=== PATIENT | female | born 1935 | race Caucasian/White ===

== ENCOUNTER 2018-03-28 07:57 | Inpatient (IN) | payer MEDICARE, OTHER ==
[2018-03-28] MEDS ORDERED: Sodium Chloride 0.9% 1000 ML 1,000 ML IV STA ×2 (08:15→11:54)
[2018-03-28] MEDS ORDERED: Sodium Chloride 0.9% 1000 ML 1,000 ML ONE (08:15)
--- NOTE | 2018-03-28 08:24 | ERPHSYRPT ---
- History of Present Illness Time Seen by Provider: 03/28/18 08:09 Source: EMS, custodial records Exam Limitations: clinical condition, other (dementia) Physician History: Pt was transported from custodial, apparently she has become lethargic and hypotensive. Her blood pressure was 87/60 on the scene, after arrival, here is 120/80, she is afebrile, lethargic, aroused opens her eyes, but nonverbal. EMS and custodial did not report any trauma, injury, vomiting, or fever, her blood sugar was 233 in the ambulance. Timing/Duration: today Severity: severe Character of Deficits: other (generalized weakness, and lethargy) Deficits: unable to stand Baseline/Normal Cognition: alert but confused Current Cognition: poor alertness Associated Symptoms: denies symptoms Allergies/Adverse Reactions: No Known Drug Allergies Allergy (Verified 03/28/18 09:17) Home Medications: Triamterene/Hydrochlorothiazid [Triamterene-Hctz 37.5-25 mg Tb] 25 mg PO DAILY 01/23/14 [History] Calcium Carbonate/Vitamin D3 [Oystercal-D 500 mg-400 Unit Tb] 1 each PO DAILY [History] Cholecalciferol (Vitamin D3) [Vitamin D] 1,000 unit PO DAILY 03/28/18 [ History] Glipizide 5 mg [Glucotrol 5 MG] 5 mg PO DAILY 03/28/18 [History] Polyethylene Glycol 3350 [Glycolax] 527 gm PO DAILY 03/28/18 [History] Sennosides/Docusate Sodium [Stool Soft-Stimulant Lax Tab] 1 each PO BID [History] Hx Tetanus, Diphtheria Vaccination/Date Given: No Hx Influenza Vaccination/Date Given: Yes (2013) Hx Pneumococcal Vaccination/Date Given: No - Review of Systems All Other Systems: Unable due to condition, Unable due to dementia - Past Medical History Pertinent Past Medical History: Yes Cardiac History: High Cholesterol, Hypertension Endocrine Medical History: Diabetes Type II - Past Surgical History Past Surgical History: Yes Musculoskeletal: Orthopedic Surgery Female Surgical History: Hysterectomy, Lumpectomy - Social History Smoking Status: Never smoker Exposure to second hand smoke: No Drug Use: none - Nursing Vital Signs Nursing Vital Signs: Initial Vital Signs Temperature 98 F 03/28/18 08:01 Pulse Rate 104 H 03/28/18 08:01 Respiratory Rate 16 03/28/18 08:01 Blood Pressure 141/96 03/28/18 08:01 O2 Sat by Pulse Oximetry 100 03/28/18 08:01 Pain Scale Pain Intensity 0 - [place] Coma Scale Best Eye Response ([place]): (2) open to pain Best Verbal Response ([place]): (1) no verbal response Best Motor Response ([place]): (4) withdraws to pain [place] Total: 7 - Physical Exam General Appearance: no apparent distress Eye Exam: bilateral eye: PERRL Ears, Nose, Throat Exam: dry mucous membranes Neck Exam: normal inspection, supple, No carotid bruit, No JVD Respiratory: normal breath sounds, lungs clear, airway intact, No respiratory distress Cardiovascular: regular rate/rhythm, normal heart sounds, normal peripheral pulses, No murmur Gastrointestinal: soft, normal bowel sounds, No distention, No mass, No guarding , No ecchymosis, No rebound, No organomegaly Back Exam: normal inspection Extremity Exam: normal inspection, No pedal edema Peripheral Pulses: femoral (R): 2+, femoral (L): 2+, dorsalis-pedis (R): 1+, dorsalis-pedis (L): 1+ Mental Status: lethargy Skin Exam: normal color, dry SpO2 Interpretation: normal Oxygen Delivery: Nasal Cannula - Course Nursing assessment & vital signs reviewed: Yes EKG Interpreted by Me: RATE (85/min), Left [place] Deviation, NORMAL INTERVALS, Left Bundle Branch Block (LaFB), Right Bundle Branch Block, Non-specific ST Changes - Radiology Exams Chest X-ray Interpretation: Interpreted by me, Negative - CT Exams Head CT Interpretation: Negative, Tele-radiologist Report Ordered Tests: Active Orders 24 hr Category Date Time Status Molecular Biology Professor STAT Care 03/28/18 08:18 Active Catheter-[place] STAT Care 03/28/18 08:15 Active EKG-ER Only STAT Care 03/28/18 08:15 Active IV Insertion STAT Care 03/28/18 08:15 Active Oxygen-ED Only NASAL CANNULA 2 lpm Care 03/28/18 08:15 Active CHEST 1 VIEW (PORTABLE) Stat Exams 03/28/18 08:18 Taken HEAD WITHOUT CONTRAST [CT] Stat Exams 03/28/18 08:19 Taken ARTERIAL BLOOD GASES Urgent Lab 03/28/18 08:46 Completed BLOOD CULTURE Stat Lab 03/28/18 08:49 Received CBC W DIFF Stat Lab 03/28/18 08:15 Completed CK-Creatinine Phosphokinase Stat Lab 03/28/18 08:15 Completed CMP Stat Lab 03/28/18 08:15 Completed CULTURE,URINE Stat Lab 03/28/18 08:45 Received Lactic Acid Stat Lab 03/28/18 08:46 Results MAGNESIUM Stat Lab 03/28/18 08:15 Completed Manual Differential NC Stat Lab 03/28/18 08:15 Completed NT PRO BNP Stat Lab 03/28/18 08:15 Completed PROTIME WITH INR Stat Lab 03/28/18 08:49 Completed TROPONIN Q3H Lab 03/28/18 08:49 Completed TROPONIN Q3H Lab 03/28/18 11:30 Ordered TROPONIN Q3H Lab 03/28/18 14:30 Ordered TROPONIN Q3H Lab 03/28/18 17:30 Ordered TROPONIN Q3H Lab 03/28/18 20:30 Ordered UA W/ MICROSCOPIC Stat Lab 03/28/18 08:45 Completed Urine Triage Profile Stat Lab 03/28/18 08:45 Completed Medication Summary Generic Name Dose Route Start Last Admin Trade Name Freq PRN Reason Stop Dose Admin Sodium Chloride 1,000 mls @ 500 mls/hr 03/28/18 09:45 03/28/18 09:52 Sodium Chloride 0.9% 1000 Ml IV 04/27/18 09:44 500 mls/hr .Q2H SANJANA Administration Vancomycin HCl 1 gm in 250 mls @ 167 mls/hr 03/28/18 10:02 03/28/18 10:08 Vancomycin 1gm/ Ns 250ml IV 03/28/18 11:31 167 mls/hr STAT ONE Administration Discontinued Medications Generic Name Dose Route Start Last Admin Trade Name Freq PRN Reason Stop Dose Admin Sodium Chloride 1,000 mls @ 999 mls/hr 03/28/18 08:15 03/28/18 09:57 Sodium Chloride 0.9% 1000 Ml IV 03/28/18 09:15 Infused .Q1H1M STA Infusion Sodium Chloride Confirm 03/28/18 08:15 Sodium Chloride 0.9% 1000 Ml Administered 03/28/18 08:16 Dose 1,000 mls @ ud .ROUTE .STK-MED ONE Ceftriaxone Sodium/Dextrose 1 g in 50 mls @ 100 mls/hr 03/28/18 09:40 09:48 Rocephin 1 Gm-D5w 50 Ml Bag IV 03/28/18 10:09 100 mls/hr STAT STA 100 mls/hr Administration Ceftriaxone Sodium/Dextrose Confirm 03/28/18 09:45 Rocephin 1 Gm-D5w 50 Ml Bag Administered 03/28/18 09:46 Dose 1 g in 50 mls @ ud IV .STK-MED ONE Lab/Rad Data: Laboratory Result Diagrams 03/28/18 08:15 03/28/18 08:15 Laboratory Results 03/28/18 03/28/18 03/28/18 Range/Units 08:49 08:49 08:46 WBC (4.0-10.5) K/mm3 RBC (4.1-5.4) M/mm3 Hgb (12.0-16.0) gm/dl Hct (35-47) % MCV (78-100) fl MCH (26-32) pg MCHC (32-36) g/dl RDW (11.5-14.0) % Plt Count (150-450) K/mm3 MPV (6-9.5) fl Absolute Granulocytes (1.4-6.9) PT 11.5 (9.95-12.35) SECONDS INR 0.99 (0.8-3.0) Puncture Site RIGHT BRACHIAL pCO2 32 L (35-45) mmHg pO2 188 H* (75-100) mmHg Base Excess 0.5 (-2.0-2.0) O2 Saturation 94.9 (94-100) g/dF ABG pH 7.47 H (7.35-7.45) ABG HCO3 23.3 (22-28) ABG O2 Sat (Measured) 99.9 (95-100) % Nicho Test YES A-a Gradient 0 a/A Ratio 1.00 Hemoglobin 16.1 Carboxyhemoglobin 3.3 (0.0-6.9) % THgb Methemoglobin 1.6 H (1.4-1.5) % Temperature 37.0 C POC O2 Flow Rate 32 % Sodium (137-145) mmol/L Potassium 3.4 L (3.5-5.1) mmol/L Chloride (98-107) mmol/L Carbon Dioxide (22-30) mmol/L Anion Gap (5-15) MEQ/L BUN (7-17) mg/dL Creatinine (0.52-1.04) mg/dL Estimated GFR ML/MIN Glucose (74-106) mg/dL Lactic Acid (0.4-2.0) Calcium (8.4-10.2) mg/dL Magnesium (1.6-2.3) mg/dL Total Bilirubin (0.2-1.3) mg/dL AST (14-36) U/L ALT (0-35) U/L Alkaline Phosphatase (38-126) U/L Creatine Kinase (30-135) U/L Troponin I 0.068 H* (0.000-0.034) ng/mL NT-Pro-B Natriuret Pep (0-1800) pg/mL Serum Total Protein (6.3-8.2) g/dL Albumin (3.5-5.0) g/dL Ur Collection Type Urine Color (YELLOW) Urine Appearance (CLEAR) Urine pH (5-6) Ur Specific [place] (1.005-1.025) Urine Protein (Negative) Urine Ketones (NEGATIVE) Urine Blood (0-5) Carter/ul Urine Nitrite (NEGATIVE) Urine Bilirubin (NEGATIVE) Urine Urobilinogen (0-1) mg/dL Ur Leukocyte Esterase (NEGATIVE) Urine Microscopic RBC (0-2) /HPF Urine Microscopic WBC (0-5) /HPF Ur Epithelial Cells (FEW) /HPF Amorphous Crystals (NEGATIVE) /HPF Urine Bacteria (NEGATIVE) /HPF Urine Mucus (NEGATIVE) /HPF Urine Culture Reflexed (NO) Urine Glucose (NEGATIVE) mg/dL Urine Opiates Level (NEGATIVE) Ur Methadone (NEGATIVE) Urine Barbiturates (NEGATIVE) Ur Phencyclidine (PCP) (NEGATIVE) Urine Amphetamine (NEGATIVE) U Benzodiazepine Level (NEGATIVE) Urine Cocaine (NEGATIVE) Urine Marijuana (THC) (NEGATIVE) Specimen Received 03/28/18 03/28/18 03/28/18 Range/Units 08:46 08:45 08:45 WBC (4.0-10.5) K/mm3 RBC (4.1-5.4) M/mm3 Hgb (12.0-16.0) gm/dl Hct (35-47) % MCV (78-100) fl MCH (26-32) pg MCHC (32-36) g/dl RDW (11.5-14.0) % Plt Count (150-450) K/mm3 MPV (6-9.5) fl Absolute Granulocytes (1.4-6.9) PT (9.95-12.35) SECONDS INR (0.8-3.0) Puncture Site pCO2 (35-45) mmHg pO2 (75-100) mmHg Base Excess (-2.0-2.0) O2 Saturation (94-100) g/dF ABG pH (7.35-7.45) ABG HCO3 (22-28) ABG O2 Sat (Measured) (95-100) % Nicho Test A-a Gradient a/A Ratio Hemoglobin Carboxyhemoglobin (0.0-6.9) % THgb Methemoglobin (1.4-1.5) % Temperature C POC O2 Flow Rate % Sodium (137-145) mmol/L Potassium (3.5-5.1) mmol/L Chloride (98-107) mmol/L Carbon Dioxide (22-30) mmol/L Anion Gap (5-15) MEQ/L BUN (7-17) mg/dL Creatinine (0.52-1.04) mg/dL Estimated GFR ML/MIN Glucose (74-106) mg/dL Lactic Acid 3.4 H (0.4-2.0) Calcium (8.4-10.2) mg/dL Magnesium (1.6-2.3) mg/dL Total Bilirubin (0.2-1.3) mg/dL AST (14-36) U/L ALT (0-35) U/L Alkaline Phosphatase (38-126) U/L Creatine Kinase (30-135) U/L Troponin I (0.000-0.034) ng/mL NT-Pro-B Natriuret Pep (0-1800) pg/mL Serum Total Protein (6.3-8.2) g/dL Albumin (3.5-5.0) g/dL Ur Collection Type CATH Urine Color YELLOW (YELLOW) Urine Appearance CLOUDY (CLEAR) Urine pH 6.0 (5-6) Ur Specific [place] 1.010 (1.005-1.025) Urine Protein 30 (Negative) Urine Ketones NEGATIVE (NEGATIVE) Urine Blood NEGATIVE (0-5) Carter/ul Urine Nitrite POSITIVE (NEGATIVE) Urine Bilirubin NEGATIVE (NEGATIVE) Urine Urobilinogen NORMAL (0-1) mg/dL Ur Leukocyte Esterase TRACE (NEGATIVE) Urine Microscopic RBC 0-2 (0-2) /HPF Urine Microscopic WBC 2-5 (0-5) /HPF Ur Epithelial Cells MODERATE (FEW) /HPF Amorphous Crystals MANY (NEGATIVE) /HPF Urine Bacteria MANY (NEGATIVE) /HPF Urine Mucus SLIGHT (NEGATIVE) /HPF Urine Culture Reflexed YES (NO) Urine Glucose NEGATIVE (NEGATIVE) mg/dL Urine Opiates Level POSITIVE (NEGATIVE) Ur Methadone NEGATIVE (NEGATIVE) Urine Barbiturates NEGATIVE (NEGATIVE) Ur Phencyclidine (PCP) NEGATIVE (NEGATIVE) Urine Amphetamine NEGATIVE (NEGATIVE) U Benzodiazepine Level NEGATIVE (NEGATIVE) Urine Cocaine NEGATIVE (NEGATIVE) Urine Marijuana (THC) NEGATIVE (NEGATIVE) Specimen Received 03-28-18 0900 03/28/18 03/28/18 Range/Units 08:15 08:15 WBC 30.5 H* (4.0-10.5) K/mm3 RBC 5.86 H (4.1-5.4) M/mm3 Hgb 16.8 H (12.0-16.0) gm/dl Hct 48.4 H (35-47) % MCV 82.6 (78-100) fl MCH 28.6 (26-32) pg MCHC 34.7 (32-36) g/dl RDW 15.9 H (11.5-14.0) % Plt Count 216 (150-450) K/mm3 MPV 10.5 H (6-9.5) fl Absolute Granulocytes 28.72 H (1.4-6.9) PT (9.95-12.35) SECONDS INR (0.8-3.0) Puncture Site pCO2 (35-45) mmHg pO2 (75-100) mmHg Base Excess (-2.0-2.0) O2 Saturation (94-100) g/dF ABG pH (7.35-7.45) ABG HCO3 (22-28) ABG O2 Sat (Measured) (95-100) % Nicho Test A-a Gradient a/A Ratio Hemoglobin Carboxyhemoglobin (0.0-6.9) % THgb Methemoglobin (1.4-1.5) % Temperature C POC O2 Flow Rate % Sodium 130 L (137-145) mmol/L Potassium 3.8 (3.5-5.1) mmol/L Chloride 90 L (98-107) mmol/L Carbon Dioxide 25 (22-30) mmol/L Anion Gap 18.7 H (5-15) MEQ/L BUN 68 H (7-17) mg/dL Creatinine 3.64 H (0.52-1.04) mg/dL Estimated GFR 12.6 ML/MIN Glucose 267 H (74-106) mg/dL Lactic Acid (0.4-2.0) Calcium 17.3 H* (8.4-10.2) mg/dL Magnesium 2.6 H (1.6-2.3) mg/dL Total Bilirubin 0.70 (0.2-1.3) mg/dL AST 23 (14-36) U/L ALT 22 (0-35) U/L Alkaline Phosphatase 86 (38-126) U/L Creatine Kinase 32 (30-135) U/L Troponin I (0.000-0.034) ng/mL NT-Pro-B Natriuret Pep 3230 H (0-1800) pg/mL Serum Total Protein 7.4 (6.3-8.2) g/dL Albumin 4.3 (3.5-5.0) g/dL Ur Collection Type Urine Color (YELLOW) Urine Appearance (CLEAR) Urine pH (5-6) Ur Specific [place] (1.005-1.025) Urine Protein (Negative) Urine Ketones (NEGATIVE) Urine Blood (0-5) Carter/ul Urine Nitrite (NEGATIVE) Urine Bilirubin (NEGATIVE) Urine Urobilinogen (0-1) mg/dL Ur Leukocyte Esterase (NEGATIVE) Urine Microscopic RBC (0-2) /HPF Urine Microscopic WBC (0-5) /HPF Ur Epithelial Cells (FEW) /HPF Amorphous Crystals (NEGATIVE) /HPF Urine Bacteria (NEGATIVE) /HPF Urine Mucus (NEGATIVE) /HPF Urine Culture Reflexed (NO) Urine Glucose (NEGATIVE) mg/dL Urine Opiates Level (NEGATIVE) Ur Methadone (NEGATIVE) Urine Barbiturates (NEGATIVE) Ur Phencyclidine (PCP) (NEGATIVE) Urine Amphetamine (NEGATIVE) U Benzodiazepine Level (NEGATIVE) Urine Cocaine (NEGATIVE) Urine Marijuana (THC) (NEGATIVE) Specimen Received - Progress Progress: improved Progress Note: 03/28/18 10:05 Pt is more alert after 1000 ml saline, BP slightly elevated : 170/100, she opens her eyes to verbal stimuli, denies pain, O2 sat: 99 % on R/A, stable, she was started on iv Rocephine and Vancomycin, and 90 mg Pamidronate iv. I called Dr Freeman, discussed her results and current condition, he agreed to admit her to ICU. 03/28/18 10:09 Discussed with .: Alverto Will see patient in: hospital (full admit) - Departure Time of Disposition: 10:09 Departure Disposition: In-patient Admission Clinical Impression: Dehydration, Elevated troponin I level, Hypercalcemia UTI (urinary tract infection) Qualifiers: Urinary tract infection type: site unspecified Hematuria presence: without hematuria Qualified Code(s): N39.0 - Urinary tract infection, site not specified Altered mental status Qualifiers: Altered mental status type: unspecified Qualified Code(s): R41.82 - Altered mental status, unspecified Condition: Fair Critical Care Time: Yes Critical Care Time(excluding separately billable procedures): 30-74 minutes Referrals: RACHELLE BETHEA [Primary Care Provider] -
[2018-03-28 08:47] LABS: Lactic Acid 3.4 (0.4-2.0)
[2018-03-28 08:48] LABS: A-aADO2 0; ABG HEMOGLOBIN 16.1; ABG POTASSIUM 3.4 (3.5-5.1); ARTERIAL BLD GAS O2 SATURATION 99.9 % (95-100); ARTERIAL BLOOD GAS BASE EXCESS 0.5 (-2.0-2.0); ARTERIAL BLOOD GAS FIO2 32 %; ARTERIAL BLOOD GAS PCO2 32 mmHg (35-45); ARTERIAL BLOOD GAS PO2 188 mmHg (75-100); ARTERIAL BLOOD GAS pH 7.47 (7.35-7.45); CARBOXYHEMOGLOBIN 3.3 % THgb (0.0-6.9); HCO3- 23.3 (22-28); HGB O2 SAT 94.9 g/dF (94-100); Methhemoglobin 1.6 % (1.4-1.5)
[2018-03-28 08:49] LABS: ABG SITE RIGHT BRACHIAL; ALLEN TEST OK? YES
[2018-03-28 08:58] LABS: Granulocyte Absolute (ANC) 28.72 (1.4-6.9); Hematocrit 48.4 % (35-47); Hemoglobin 16.8 gm/dl (12.0-16.0); Mean Cell Volume 82.6 fl (78-100); Mean Corpuscular Hgb Concent. 34.7 g/dl (32-36); Mean Platelet Volume 10.5 fl (6-9.5); Platelet Count 216 K/mm3 (150-450); Red Blood Count 5.86 M/mm3 (4.1-5.4); Red Cell Distribution Width 15.9 % (11.5-14.0)
[2018-03-28 09:13] LABS: INR 0.99 (0.8-3.0)
[2018-03-28 09:15] LABS: Amphetamine,Urine NEGATIVE (NEGATIVE); Barbiturate,Urine NEGATIVE (NEGATIVE); Benzodiazepine,Urine NEGATIVE (NEGATIVE); Cocaine,Urine NEGATIVE (NEGATIVE); Methadone,Urine NEGATIVE (NEGATIVE); Opiate,Urine POSITIVE (NEGATIVE); PCP,Urine NEGATIVE (NEGATIVE); THC,Urine NEGATIVE (NEGATIVE)
[2018-03-28 09:16] LABS: Appearance CLOUDY (CLEAR); Bilirubin NEGATIVE (NEGATIVE); Blood NEGATIVE Ery/ul (0-5); Glucose NEGATIVE (NEGATIVE); Ketones NEGATIVE (NEGATIVE); Leukocyte Esterase TRACE (NEGATIVE); Nitrite POSITIVE (NEGATIVE); Protein,Urine Dip 30 (Negative); Urobilinogen NORMAL mg/dL (0-1)
[2018-03-28 09:17] LABS: ALBUMIN 4.3 g/dL (3.5-5.0); ANION GAP 18.7 MEQ/L (5-15); BILIRUBIN,TOTAL 0.7 mg/dL (0.2-1.3); Creatinine 1 3.64 mg/dL (0.52-1.04); Potassium 3.8 mmol/L (3.5-5.1); Total Protein 7.4 g/dL (6.3-8.2)
[2018-03-28 09:18] LABS: Bacteria MANY /HPF (NEGATIVE); Epithelial Cells MODERATE /HPF (FEW); Mucus SLIGHT /HPF (NEGATIVE); RBC 0-2 /HPF (0-2)
[2018-03-28 09:19] LABS: Amourphous Crystal MANY /HPF (NEGATIVE)
[2018-03-28 09:23] LABS: Mean Corpuscular Hemoglobin 28.6 pg (26-32); White Blood Count 30.5 K/mm3 (4.0-10.5)
[2018-03-28 09:29] LABS: Calcium 17.3 mg/dL (8.4-10.2)
[2018-03-28] MEDS ORDERED: ROCEPHIN 1 Gm-D5w 50 ml Bag** 1 G/50 ML IVPB IV STA (09:40)
[2018-03-28] MEDS ORDERED: ROCEPHIN 1 Gm-D5w 50 ml Bag** 1 G/50 ML IVPB IV ONE (09:45)
[2018-03-28] MEDS: Sodium Chloride 0.9% 1000 ML 1,000 ML IV SCH ×4 (09:52→19:39)
[2018-03-28] MEDS ORDERED: Vancomycin 1GM/ Ns 250ML*** 1 GM/250 ML IVPB IV ONE (10:02)
[2018-03-28] MEDS ORDERED: Vancomycin 1GM/ Ns 250ML*** 250 ML IV ONE (10:06)
[2018-03-28] MEDS ORDERED: AREDIA IV ONE (10:07)
[2018-03-28] MEDS ORDERED: MIACALCIN SQ ONE (10:30)
[2018-03-28 11:12] LABS: Lymphocytes 3 % (24-44); Neutrophils 97 % (36.0-66.0); Total Cells Counted 100
[2018-03-28 11:13] LABS: ANISOCYTOSIS 1+; Platelet Estimate NORMAL (NORMAL); Poikilocytosis 1+; Polychromasia 1+
[2018-03-28 11:44] LABS: Lactic Acid 3.5 (0.4-2.0)
[2018-03-28] MEDS ORDERED: APRESOLINE 20 MG/ML INJ IV PRN (11:57)
--- NOTE | 2018-03-28 12:06 | PCM.HP ---
History of Present Illness - Chief Complaint Chief Complaint: UTI Date: 03/28/18 History of Present Illness: is a 82 year old female. who has been recovering at [facility] in rehab she suffers from recent hip fracture a few months ago that was repaired but her recovery was limited by her chronic worsening dementia with history of previous stroke. She also suffers from renal failure. Her son noted that last weekend she began complaining of more nonspecific pain all over and then yesterday was yelling out in pain and would improve if someone sat with her labs were ordered and drawn at [facility] this am but on shift change she was tachycardic with low bp and difficult to arouse and thus she was sent to the ED. She is now more arousable but not communicating well she does follow commands and moves all extremities. takes calcium and vitamin D and triamterene / hctz at [facility] - Review of Systems Constitutional: Other (unable to obtain secondary to mental status) Medications & Allergies Home Medications: Home Medication List Triamterene/Hydrochlorothiazid [Triamterene-Hctz 37.5-25 mg Tb] 1 tab PO DAILY 01/23/14 [History Confirmed 03/28/18] Acetaminophen 325 mg [Tylenol 325 mg] 2 tab PO Q4H PRN 03/28/18 [History Confirmed 03/28/18] Calcium Carbonate/Vitamin D3 [Oystercal-D 500 mg-400 Unit Tb] 2 tab PO DAILY [History Confirmed 03/28/18] Cholecalciferol (Vitamin D3) [Vitamin D] 1,000 unit PO DAILY 03/28/18 [ History Confirmed 03/28/18] Glipizide 5 mg [Glucotrol 5 MG] 5 mg PO DAILY 03/28/18 [History Confirmed 03/28/18] Glucagon,Human Recombinant [Glucagon Emergency Kit] 1 mg IM QID PRN 03/28/18 [ History Confirmed 03/28/18] Hydrocodone Bit/Acetaminophen [[place] 5-325 Tablet] 1 each PO Q6HPRN PRN [History Confirmed 03/28/18] Magnesium Hydroxide [Milk of Magnesia] 30 ml PO DAILY PRN 03/28/18 [History Confirmed 03/28/18] Polyethylene Glycol 3350 [Glycolax] 17 gm PO DAILY 03/28/18 [History Confirmed 03/28/18] Polyvinyl Alcohol [Akwa Tears] 15 ml OP Q4H PRN 03/28/18 [History Confirmed ] Sennosides/Docusate Sodium [Stool Soft-Stimulant Lax Tab] 1 each PO BID PRN [History Confirmed 03/28/18] Allergies/Adverse Reactions: Allergies Allergy/AdvReac Type Severity Reaction Status Date / Time No Known Drug Allergies Allergy Verified 03/28/18 09:17 - Past Medical History Past Medical History: Yes Neurological History: Stroke Cardiac History: High Cholesterol, Hypertension Endocrine Medical History: Diabetes Type II History: Renal Disease - Female History Are you now?: No - Past Surgical History Past Surgical History: Yes Musculskeletal Surgical Hx: Orthopedic Surgery Female Surgical History: Hysterectomy, Lumpectomy - Social History Smoking Status: Never smoker Exposure to second hand smoke: No Alcohol: None Drug Use: none - Physical Exam Vital Signs: Vital Signs - 24 hr Temp Pulse Resp BP Pulse Ox 03/28/18 11:30 98 F 91 H 16 190/99 98 03/28/18 10:38 85 18 185/105 100 03/28/18 09:53 98 F 90 14 178/96 99 03/28/18 09:52 89 18 178/98 99 03/28/18 08:51 99.0 F 86 14 141/94 99 03/28/18 08:01 98 F 104 H 16 141/96 100 Oxygen-Last 24 hours O2 Percentage 2 Liters = 28% O2 Percentage 2 Liters = 28% O2 Percentage 2 Liters = 28% O2 Percentage 2 Liters = 28% O2 Percentage 2 Liters = 28% General Appearance: alert, thin, No anxiety Neurologic Exam: other (follows commands moves all extremities has dry oral mucosa tries to verbally answer questions but speech seems to be difficut no obvious focal neurological deficits), No oriented x 3 Eye Exam: PERRL/EOMI, No scleral icterus, No pale conjunctivae Ears, Nose, Throat Exam: dry mucous membranes Neck Exam: normal inspection, non-tender, supple Respiratory Exam: normal breath sounds, lungs clear Cardiovascular Exam: regular rate/rhythm, normal heart sounds Gastrointestinal/Abdomen Exam: soft, tenderness, other (tenderness in the right lower quadrant), No normal bowel sounds, No distention, No guarding, No ecchymosis, No rebound Extremity Exam: No deformities, No pedal edema, No swelling Skin Exam: warm, dry, other (with poor turgor) Results - Labs Lab/Micro Results: Accuchecks Accucheck Value: 242 Lab Results-Last 24 Hours 03/28/18 03/28/18 03/28/18 Range/Units 08:15 08:15 08:45 WBC 30.5 H* (4.0-10.5) K/mm3 RBC 5.86 H (4.1-5.4) M/mm3 Hgb 16.8 H (12.0-16.0) gm/dl Hct 48.4 H (35-47) % MCV 82.6 (78-100) fl MCH 28.6 (26-32) pg MCHC 34.7 (32-36) g/dl RDW 15.9 H (11.5-14.0) % Plt Count 216 (150-450) K/mm3 MPV 10.5 H (6-9.5) fl Absolute Granulocytes 28.72 H (1.4-6.9) Segmented Neutrophils 97 H (36.0-66.0) % Lymphocytes (Manual) 3 L (24-44) % Platelet Estimate NORMAL (NORMAL) RBC Morphology ABNORMAL Polychromasia 1+ Poikilocytosis 1+ Anisocytosis 1+ PT (9.95-12.35) SECONDS INR (0.8-3.0) Puncture Site pCO2 (35-45) mmHg pO2 (75-100) mmHg Base Excess (-2.0-2.0) O2 Saturation (94-100) g/dF ABG pH (7.35-7.45) ABG HCO3 (22-28) ABG O2 Sat (Measured) (95-100) % Nicho Test A-a Gradient a/A Ratio Hemoglobin Carboxyhemoglobin (0.0-6.9) % THgb Methemoglobin (1.4-1.5) % Temperature C POC O2 Flow Rate % Sodium 130 L (137-145) mmol/L Potassium 3.8 (3.5-5.1) mmol/L Chloride 90 L (98-107) mmol/L Carbon Dioxide 25 (22-30) mmol/L Anion Gap 18.7 H (5-15) MEQ/L BUN 68 H (7-17) mg/dL Creatinine 3.64 H (0.52-1.04) mg/dL Estimated GFR 12.6 ML/MIN Glucose 267 H (74-106) mg/dL Lactic Acid (0.4-2.0) Calcium 17.3 H* (8.4-10.2) mg/dL Phosphorus (2.5-4.5) mg/dL Magnesium 2.6 H (1.6-2.3) mg/dL Total Bilirubin 0.70 (0.2-1.3) mg/dL AST 23 (14-36) U/L ALT 22 (0-35) U/L Alkaline Phosphatase 86 (38-126) U/L Creatine Kinase 32 (30-135) U/L Troponin I (0.000-0.034) ng/mL NT-Pro-B Natriuret Pep 3230 H (0-1800) pg/mL Serum Total Protein 7.4 (6.3-8.2) g/dL Albumin 4.3 (3.5-5.0) g/dL Ur Collection Type CATH Urine Color YELLOW (YELLOW) Urine Appearance CLOUDY (CLEAR) Urine pH 6.0 (5-6) Ur Specific [place] 1.010 (1.005-1.025) Urine Protein 30 (Negative) Urine Ketones NEGATIVE (NEGATIVE) Urine Blood NEGATIVE (0-5) Carter/ul Urine Nitrite POSITIVE (NEGATIVE) Urine Bilirubin NEGATIVE (NEGATIVE) Urine Urobilinogen NORMAL (0-1) mg/dL Ur Leukocyte Esterase TRACE (NEGATIVE) Urine Microscopic RBC 0-2 (0-2) /HPF Urine Microscopic WBC 2-5 (0-5) /HPF Ur Epithelial Cells MODERATE (FEW) /HPF Amorphous Crystals MANY (NEGATIVE) /HPF Urine Bacteria MANY (NEGATIVE) /HPF Urine Mucus SLIGHT (NEGATIVE) /HPF Urine Culture Reflexed YES (NO) Urine Glucose NEGATIVE (NEGATIVE) mg/dL Urine Opiates Level (NEGATIVE) Ur Methadone (NEGATIVE) Urine Barbiturates (NEGATIVE) Ur Phencyclidine (PCP) (NEGATIVE) Urine Amphetamine (NEGATIVE) U Benzodiazepine Level (NEGATIVE) Urine Cocaine (NEGATIVE) Urine Marijuana (THC) (NEGATIVE) Specimen Received 03-28-18 0900 03/28/18 03/28/18 03/28/18 Range/Units 08:45 08:45 08:46 WBC (4.0-10.5) K/mm3 RBC (4.1-5.4) M/mm3 Hgb (12.0-16.0) gm/dl Hct (35-47) % MCV (78-100) fl MCH (26-32) pg MCHC (32-36) g/dl RDW (11.5-14.0) % Plt Count (150-450) K/mm3 MPV (6-9.5) fl Absolute Granulocytes (1.4-6.9) Segmented Neutrophils (36.0-66.0) % Lymphocytes (Manual) (24-44) % Platelet Estimate (NORMAL) RBC Morphology Polychromasia Poikilocytosis Anisocytosis PT (9.95-12.35) SECONDS INR (0.8-3.0) Puncture Site pCO2 (35-45) mmHg pO2 (75-100) mmHg Base Excess (-2.0-2.0) O2 Saturation (94-100) g/dF ABG pH (7.35-7.45) ABG HCO3 (22-28) ABG O2 Sat (Measured) (95-100) % Nicho Test A-a Gradient a/A Ratio Hemoglobin Carboxyhemoglobin (0.0-6.9) % THgb Methemoglobin (1.4-1.5) % Temperature C POC O2 Flow Rate % Sodium (137-145) mmol/L Potassium (3.5-5.1) mmol/L Chloride (98-107) mmol/L Carbon Dioxide (22-30) mmol/L Anion Gap (5-15) MEQ/L BUN (7-17) mg/dL Creatinine (0.52-1.04) mg/dL Estimated GFR ML/MIN Glucose (74-106) mg/dL Lactic Acid 3.4 H (0.4-2.0) Calcium (8.4-10.2) mg/dL Phosphorus 4.4 (2.5-4.5) mg/dL Magnesium (1.6-2.3) mg/dL Total Bilirubin (0.2-1.3) mg/dL AST (14-36) U/L ALT (0-35) U/L Alkaline Phosphatase (38-126) U/L Creatine Kinase (30-135) U/L Troponin I (0.000-0.034) ng/mL NT-Pro-B Natriuret Pep (0-1800) pg/mL Serum Total Protein (6.3-8.2) g/dL Albumin (3.5-5.0) g/dL Ur Collection Type Urine Color (YELLOW) Urine Appearance (CLEAR) Urine pH (5-6) Ur Specific [place] (1.005-1.025) Urine Protein (Negative) Urine Ketones (NEGATIVE) Urine Blood (0-5) Carter/ul Urine Nitrite (NEGATIVE) Urine Bilirubin (NEGATIVE) Urine Urobilinogen (0-1) mg/dL Ur Leukocyte Esterase (NEGATIVE) Urine Microscopic RBC (0-2) /HPF Urine Microscopic WBC (0-5) /HPF Ur Epithelial Cells (FEW) /HPF Amorphous Crystals (NEGATIVE) /HPF Urine Bacteria (NEGATIVE) /HPF Urine Mucus (NEGATIVE) /HPF Urine Culture Reflexed (NO) Urine Glucose (NEGATIVE) mg/dL Urine Opiates Level POSITIVE (NEGATIVE) Ur Methadone NEGATIVE (NEGATIVE) Urine Barbiturates NEGATIVE (NEGATIVE) Ur Phencyclidine (PCP) NEGATIVE (NEGATIVE) Urine Amphetamine NEGATIVE (NEGATIVE) U Benzodiazepine Level NEGATIVE (NEGATIVE) Urine Cocaine NEGATIVE (NEGATIVE) Urine Marijuana (THC) NEGATIVE (NEGATIVE) Specimen Received 03/28/18 03/28/18 03/28/18 Range/Units 08:46 08:49 08:49 WBC (4.0-10.5) K/mm3 RBC (4.1-5.4) M/mm3 Hgb (12.0-16.0) gm/dl Hct (35-47) % MCV (78-100) fl MCH (26-32) pg MCHC (32-36) g/dl RDW (11.5-14.0) % Plt Count (150-450) K/mm3 MPV (6-9.5) fl Absolute Granulocytes (1.4-6.9) Segmented Neutrophils (36.0-66.0) % Lymphocytes (Manual) (24-44) % Platelet Estimate (NORMAL) RBC Morphology Polychromasia Poikilocytosis Anisocytosis PT 11.5 (9.95-12.35) SECONDS INR 0.99 (0.8-3.0) Puncture Site RIGHT BRACHIAL pCO2 32 L (35-45) mmHg pO2 188 H* (75-100) mmHg Base Excess 0.5 (-2.0-2.0) O2 Saturation 94.9 (94-100) g/dF ABG pH 7.47 H (7.35-7.45) ABG HCO3 23.3 (22-28) ABG O2 Sat (Measured) 99.9 (95-100) % Nicho Test YES A-a Gradient 0 a/A Ratio 1.00 Hemoglobin 16.1 Carboxyhemoglobin 3.3 (0.0-6.9) % THgb Methemoglobin 1.6 H (1.4-1.5) % Temperature 37.0 C POC O2 Flow Rate 32 % Sodium (137-145) mmol/L Potassium 3.4 L (3.5-5.1) mmol/L Chloride (98-107) mmol/L Carbon Dioxide (22-30) mmol/L Anion Gap (5-15) MEQ/L BUN (7-17) mg/dL Creatinine (0.52-1.04) mg/dL Estimated GFR ML/MIN Glucose (74-106) mg/dL Lactic Acid (0.4-2.0) Calcium (8.4-10.2) mg/dL Phosphorus (2.5-4.5) mg/dL Magnesium (1.6-2.3) mg/dL Total Bilirubin (0.2-1.3) mg/dL AST (14-36) U/L ALT (0-35) U/L Alkaline Phosphatase (38-126) U/L Creatine Kinase (30-135) U/L Troponin I 0.068 H* (0.000-0.034) ng/mL NT-Pro-B Natriuret Pep (0-1800) pg/mL Serum Total Protein (6.3-8.2) g/dL Albumin (3.5-5.0) g/dL Ur Collection Type Urine Color (YELLOW) Urine Appearance (CLEAR) Urine pH (5-6) Ur Specific [place] (1.005-1.025) Urine Protein (Negative) Urine Ketones (NEGATIVE) Urine Blood (0-5) Carter/ul Urine Nitrite (NEGATIVE) Urine Bilirubin (NEGATIVE) Urine Urobilinogen (0-1) mg/dL Ur Leukocyte Esterase (NEGATIVE) Urine Microscopic RBC (0-2) /HPF Urine Microscopic WBC (0-5) /HPF Ur Epithelial Cells (FEW) /HPF Amorphous Crystals (NEGATIVE) /HPF Urine Bacteria (NEGATIVE) /HPF Urine Mucus (NEGATIVE) /HPF Urine Culture Reflexed (NO) Urine Glucose (NEGATIVE) mg/dL Urine Opiates Level (NEGATIVE) Ur Methadone (NEGATIVE) Urine Barbiturates (NEGATIVE) Ur Phencyclidine (PCP) (NEGATIVE) Urine Amphetamine (NEGATIVE) U Benzodiazepine Level (NEGATIVE) Urine Cocaine (NEGATIVE) Urine Marijuana (THC) (NEGATIVE) Specimen Received Accuchecks Accucheck Value: 242 - Radiology Impressions Radiology Exams & Impressions: Radiology Procedures Category Date Time Status CHEST 1 VIEW (PORTABLE) Stat Exams 03/28/18 08:18 Taken HEAD WITHOUT CONTRAST [CT] Stat Exams 03/28/18 08:19 Taken - Other Procedures and Tests Respiratory Therapy 03/28/18 10:13 Oxygen NASAL CANNULA 2 lpm Assessment/Plan (1) Sepsis Current Visit: Yes Status: Acute Assessment & Plan: severe with UTI but given severity and only the mild findings on urine there is concern for occults source she has tiny noninfected wound on coccyx but is having abdominal pain with palpation will check CT abd/pelvis now for possible occult etiology to source cover empiric for health care acquired infection currently with [facility] to dose and zosyn renal adjusted for her creat clearance of about 10 at 2.25 q8h she has severe dehydration she does take triamteren/hctz which will be held she also takes calcium and vitamin d which are also stopped she has received calcitonin as well as normal saline rehydration and is improvign now cognitively. will repeat bmp this afternoon with next lactic acid after additional fluid bolus of normal saline repeat calcitonin tonight as well check pth, pthrp, vitamin d and 1,25 oh vitamin d on initial testing there is no elevated protein at this time and the alkaline phosphatase is normal hopefully this hypercalcemia is just due to severe dehydration with excess calcium and vitamin D intake She has normal CK and minimally elevated troponin given her htn and degree of renal failure will observe and trend this, but she does not appear to be having acute OR at this point rather a troponin leak and renal failure more likely. Did discuss her current status with her son and POA who is in [place] and he confirms her desire to be full code at this point. He is on his way to see her currently and we will further discuss as more results return. (2) Acute metabolic encephalopathy Current Visit: Yes Status: Acute Code(s): G93.41 - METABOLIC ENCEPHALOPATHY (3) [id number] kidney injury Current Visit: Yes Status: Acute Code(s): N17.9 - ACUTE KIDNEY FAILURE, UNSPECIFIED; N18.9 - CHRONIC KIDNEY DISEASE, UNSPECIFIED (4) Hypercalcemia Current Visit: Yes Status: Acute Code(s): E83.52 - HYPERCALCEMIA (5) UTI (urinary tract infection) Current Visit: Yes Status: Acute Qualifiers: Urinary tract infection type: site unspecified Hematuria presence: without hematuria Qualified Code(s): N39.0 - Urinary tract infection, site not specified Code(s): N39.0 - URINARY TRACT INFECTION, SITE NOT SPECIFIED (6) Essential hypertension Current Visit: Yes Status: Chronic Code(s): I10 - ESSENTIAL (PRIMARY) HYPERTENSION
[2018-03-28] MEDS ORDERED: PHARMACY DOSING REQUIRED: VANCOMYCIN IV ONE (12:12)
[2018-03-28] MEDS ORDERED: Zosyn 2.25 GM IV ONE (12:47)
[2018-03-28] MEDS: Zosyn 2.25 GM 2.25 GM in D5w 100ML Mini Bag 100 ML 100 ML IV SCH ×2 (12:52→21:23)
[2018-03-28] MEDS ORDERED: Senokot-S Tablet PO PRN (14:07)
[2018-03-28] MEDS ORDERED: NORCO 5/325 MG PO PRN (14:07)
[2018-03-28] MEDS ORDERED: TYLENOL 325 MG PO PRN (14:07)
[2018-03-28] MEDS ORDERED: Artificial Tears 15 ML OP PRN (14:07)
[2018-03-28] MEDS: Miralax Powder 17GM PACKET PO SCH (14:47)
[2018-03-28] MEDS: ENOXAPARIN SODIUM SQ SCH (14:56)
[2018-03-28 15:14] LABS: Lactic Acid 3.3 (0.4-2.0)
[2018-03-28 15:19] LABS: ANION GAP 16.7 MEQ/L (5-15); Creatinine 1 2.88 mg/dL (0.52-1.04); Potassium 3.7 mmol/L (3.5-5.1)
[2018-03-28 15:35] LABS: Calcium 13.6 mg/dL (8.4-10.2)
[2018-03-28] MEDS: NovoLOG Insulin SQ PRN ×2 (15:45→21:42)
[2018-03-28 20:58] LABS: Lactic Acid 2.3 (0.4-2.0)
--- NOTE | 2018-03-28 21:18 | XRAY ---
Indication: Altered mental status. Comparison: None Portable chest underinflated with minimal bilateral subsegmental atelectasis/scarring. No focal infiltrate, consolidation, or large effusion. Heart is not enlarged. Bony thorax intact with mild degenerative changes. Impression: Nonacute underinflated chest.
--- NOTE | 2018-03-28 21:20 | XRAY ---
Indication: Altered mental status. Unresponsive. History dementia. Multiple contiguous axial images obtained through the head without contrast. Comparison: None Age-appropriate global atrophy and mild periventricular degenerative micro-ischemia bilaterally. No acute intracranial hemorrhage, abnormal extra-axial fluid collection, or mass effect. Bony calvarium intact with hyperostosis frontalis interna. Visualized paranasal sinuses and mastoid air cells are clear. Impression: Nonacute senile brain. Comment: Preliminary interpretation was made by [facility]. No discrepancy. CTDI 59.13
--- NOTE | 2018-03-28 21:31 | XRAY ---
Indication: Abdomen pain. Tender to touch. Acute mental status change. Multiple contiguous axial images obtained through the abdomen and pelvis without contrast as ordered. Comparison: None Study is slightly degraded by respiration artifact. Lung bases demonstrates moderate bilateral dependent atelectasis, right greater than left with scattered calcified granulomas. No effusion. Heart is not enlarged. Noncontrasted stomach and bowel loops appear nonobstructed. Appendix not identified. Scattered descending and sigmoid diverticulosis. Abnormally distended gallbladder with tiny gallstones/gravel in the dependent portion. Small perihepatic and bilateral colic gutter free fluid. No walled off fluid collection or free air. Dutton catheter empties the urinary bladder. Uterus atrophic or surgically absent. Remaining liver, pancreas, spleen, adrenal glands, kidneys, and ureters appear unremarkable for noncontrast exam. Heavy scattered vascular calcifications. No AAA. Osseous structures demonstrates moderate/advanced multilevel degenerative spondylosis and 12 mm L5 spondylolisthesis. Old proximal right femur fracture with partially visualized orthopedic hardware. Impression: 1. Respiration artifact. 2. Abnormally distended gallbladder with gallstones/gravel. Gallbladder sonogram may yield further information. 3. Perihepatic and bilateral colic gutter free fluid that may be related to gallbladder disease. 4. Colonic diverticulosis without diverticulitis. 5. Bibasilar pulmonary dependent atelectasis. Comment: Preliminary interpretation was made by [facility]. No discrepancy. CTDI 16.89
[2018-03-28] MEDS ORDERED: MIACALCIN SQ SCH (22:00)
[2018-03-29] MEDS: Sodium Chloride 0.9% 1000 ML 1,000 ML IV SCH ×2 (02:21→08:12)
[2018-03-29] MEDS: NovoLOG Insulin SQ PRN ×3 (04:16→22:13)
[2018-03-29] MEDS: Zosyn 2.25 GM 2.25 GM in D5w 100ML Mini Bag 100 ML 100 ML IV SCH ×3 (05:57→21:08)
[2018-03-29 06:07] LABS: Hematocrit 39.3 % (35-47); Hemoglobin 13.4 gm/dl (12.0-16.0); Mean Cell Volume 84.2 fl (78-100); Mean Corpuscular Hemoglobin 28.7 pg (26-32); Mean Corpuscular Hgb Concent. 34.1 g/dl (32-36); Mean Platelet Volume 10.5 fl (6-9.5); Platelet Count 134 K/mm3 (150-450); Red Blood Count 4.67 M/mm3 (4.1-5.4)
[2018-03-29 06:12] LABS: ALBUMIN 2.9 g/dL (3.5-5.0); BILIRUBIN,TOTAL 0.5 mg/dL (0.2-1.3); Calcium 11.9 mg/dL (8.4-10.2); Creatinine 1 2.47 mg/dL (0.52-1.04); Potassium 3.1 mmol/L (3.5-5.1); Total Protein 5.6 g/dL (6.3-8.2)
[2018-03-29 06:15] LABS: White Blood Count 31.7 K/mm3 (4.0-10.5)
--- NOTE | 2018-03-29 08:05 | PCM.NOTE ---
Date and Time: 03/29/18 08 Subjective Assessment: she was more alert waking up last night following commands communicating some complaining of pain in her "butt", back, and arms. She will moan with moving. She has had 1 episode of diarrhea in the ER and no BM since then. She has not had any vomiting. Objective Exam General Appearance: no apparent distress, other (drowsy now moans with moving replies when asked where her pain is "in my butt" and goes back to sleep) Neurologic Exam: No alert, No oriented x 3 Skin Exam: warm, dry, No rash, No ecchymosis, No jaundice Eye Exam: No pale conjunctivae Ears, Nose, Throat Exam: moist mucous membranes Neck Exam: non-tender, supple Respiratory Exam: lungs clear Cardiovascular Exam: regular rate/rhythm, No edema Gastrointestinal/Abdomen Exam: soft, normal bowel sounds, No tenderness, No distention Extremity Exam: normal inspection, No pedal edema OBJECTIVE DATA Vital Signs: Vital Signs - 24 hr Temp Pulse Resp BP Pulse Ox 03/29/18 07:36 99 F 87 16 158/83 97 03/29/18 04:00 96.1 F 97 H 20 142/79 97 03/29/18 00:01 89 03/29/18 00:00 97.5 F 89 18 146/73 98 03/28/18 20:00 97 H 03/28/18 19:56 97.5 F 96 H 18 114/94 100 03/28/18 19:05 94 H 22 97 03/28/18 18:03 98 H 15 131/73 98 03/28/18 16:00 98.9 F 99 H 19 132/76 99 03/28/18 12:47 96 H 22 137/74 98 03/28/18 11:30 98 F 91 H 16 190/99 98 03/28/18 10:38 85 18 185/105 100 03/28/18 09:53 98 F 90 14 178/96 99 03/28/18 09:52 89 18 178/98 99 03/28/18 08:51 99.0 F 86 14 141/94 99 Oxygen-Last 24 hours O2 Percentage 2 Liters = 28% O2 Percentage 2 Liters = 28% O2 Percentage 2 Liters = 28% O2 Percentage 2 Liters = 28% O2 Percentage 2 Liters = 28% O2 Percentage 2 Liters = 28% O2 Percentage 2 Liters = 28% O2 Percentage 2 Liters = 28% O2 Percentage 2 Liters = 28% O2 Percentage 2 Liters = 28% O2 Percentage 2 Liters = 28% O2 Percentage 2 Liters = 28% Oxygen Flowrate (L/min)-RT 2 Oxygen Flowrate (L/min)-RT 2 Pain Assessment - Last Documented Pain Intensity 0 Pain Scale Used FLACC Intake and Output: Intake & Output 03/26/18 03/27/18 03/28/18 03/29/18 11:59 11:59 11:59 11:59 Intake Total 4331 Output Total 1100 Balance 3231 Weight 53.524 kg Lab Results: Accuchecks Date 03/29/18 Date 03/28/18 Date 03/28/18 Time 15:37 Accucheck Value: 191 Accucheck Value: 264 Accucheck Value: 242 Lab Results-Last 24 Hours 03/28/18 03/28/18 03/28/18 Range/Units 08:15 08:15 08:45 WBC 30.5 H* (4.0-10.5) K/mm3 RBC 5.86 H (4.1-5.4) M/mm3 Hgb 16.8 H (12.0-16.0) gm/dl Hct 48.4 H (35-47) % MCV 82.6 (78-100) fl MCH 28.6 (26-32) pg MCHC 34.7 (32-36) g/dl RDW 15.9 H (11.5-14.0) % Plt Count 216 (150-450) K/mm3 MPV 10.5 H (6-9.5) fl Absolute Granulocytes 28.72 H (1.4-6.9) Segmented Neutrophils 97 H (36.0-66.0) % Lymphocytes (Manual) 3 L (24-44) % Platelet Estimate NORMAL (NORMAL) RBC Morphology ABNORMAL Polychromasia 1+ Poikilocytosis 1+ Anisocytosis 1+ PT (9.95-12.35) SECONDS INR (0.8-3.0) Puncture Site pCO2 (35-45) mmHg pO2 (75-100) mmHg Base Excess (-2.0-2.0) O2 Saturation (94-100) g/dF ABG pH (7.35-7.45) ABG HCO3 (22-28) ABG O2 Sat (Measured) (95-100) % Nicho Test A-a Gradient a/A Ratio Hemoglobin Carboxyhemoglobin (0.0-6.9) % THgb Methemoglobin (1.4-1.5) % Temperature C POC O2 Flow Rate % Sodium 130 L (137-145) mmol/L Potassium 3.8 (3.5-5.1) mmol/L Chloride 90 L (98-107) mmol/L Carbon Dioxide 25 (22-30) mmol/L Anion Gap 18.7 H (5-15) MEQ/L BUN 68 H (7-17) mg/dL Creatinine 3.64 H (0.52-1.04) mg/dL Estimated GFR 12.6 ML/MIN Glucose 267 H (74-106) mg/dL Lactic Acid (0.4-2.0) Calcium 17.3 H* (8.4-10.2) mg/dL Phosphorus (2.5-4.5) mg/dL Magnesium 2.6 H (1.6-2.3) mg/dL Total Bilirubin 0.70 (0.2-1.3) mg/dL AST 23 (14-36) U/L ALT 22 (0-35) U/L Alkaline Phosphatase 86 (38-126) U/L Creatine Kinase 32 (30-135) U/L Troponin I (0.000-0.034) ng/mL NT-Pro-B Natriuret Pep 3230 H (0-1800) pg/mL Serum Total Protein 7.4 (6.3-8.2) g/dL Albumin 4.3 (3.5-5.0) g/dL Prealbumin (17.6-36.0) mg/dL 25-OH Vitamin D Total (30-100) ng/mL Ur Collection Type CATH Urine Color YELLOW (YELLOW) Urine Appearance CLOUDY (CLEAR) Urine pH 6.0 (5-6) Ur Specific [place] 1.010 (1.005-1.025) Urine Protein 30 (Negative) Urine Ketones NEGATIVE (NEGATIVE) Urine Blood NEGATIVE (0-5) Carter/ul Urine Nitrite POSITIVE (NEGATIVE) Urine Bilirubin NEGATIVE (NEGATIVE) Urine Urobilinogen NORMAL (0-1) mg/dL Ur Leukocyte Esterase TRACE (NEGATIVE) Urine Microscopic RBC 0-2 (0-2) /HPF Urine Microscopic WBC 2-5 (0-5) /HPF Ur Epithelial Cells MODERATE (FEW) /HPF Amorphous Crystals MANY (NEGATIVE) /HPF Urine Bacteria MANY (NEGATIVE) /HPF Urine Mucus SLIGHT (NEGATIVE) /HPF Urine Culture Reflexed YES (NO) Urine Glucose NEGATIVE (NEGATIVE) mg/dL Urine Opiates Level (NEGATIVE) Ur Methadone (NEGATIVE) Urine Barbiturates (NEGATIVE) Ur Phencyclidine (PCP) (NEGATIVE) Urine Amphetamine (NEGATIVE) U Benzodiazepine Level (NEGATIVE) Urine Cocaine (NEGATIVE) Urine Marijuana (THC) (NEGATIVE) Specimen Received 03-28-18 0900 03/28/18 03/28/18 03/28/18 Range/Units 08:45 08:45 08:46 WBC (4.0-10.5) K/mm3 RBC (4.1-5.4) M/mm3 Hgb (12.0-16.0) gm/dl Hct (35-47) % MCV (78-100) fl MCH (26-32) pg MCHC (32-36) g/dl RDW (11.5-14.0) % Plt Count (150-450) K/mm3 MPV (6-9.5) fl Absolute Granulocytes (1.4-6.9) Segmented Neutrophils (36.0-66.0) % Lymphocytes (Manual) (24-44) % Platelet Estimate (NORMAL) RBC Morphology Polychromasia Poikilocytosis Anisocytosis PT (9.95-12.35) SECONDS INR (0.8-3.0) Puncture Site pCO2 (35-45) mmHg pO2 (75-100) mmHg Base Excess (-2.0-2.0) O2 Saturation (94-100) g/dF ABG pH (7.35-7.45) ABG HCO3 (22-28) ABG O2 Sat (Measured) (95-100) % Nicho Test A-a Gradient a/A Ratio Hemoglobin Carboxyhemoglobin (0.0-6.9) % THgb Methemoglobin (1.4-1.5) % Temperature C POC O2 Flow Rate % Sodium (137-145) mmol/L Potassium (3.5-5.1) mmol/L Chloride (98-107) mmol/L Carbon Dioxide (22-30) mmol/L Anion Gap (5-15) MEQ/L BUN (7-17) mg/dL Creatinine (0.52-1.04) mg/dL Estimated GFR ML/MIN Glucose (74-106) mg/dL Lactic Acid 3.4 H (0.4-2.0) Calcium (8.4-10.2) mg/dL Phosphorus 4.4 (2.5-4.5) mg/dL Magnesium (1.6-2.3) mg/dL Total Bilirubin (0.2-1.3) mg/dL AST (14-36) U/L ALT (0-35) U/L Alkaline Phosphatase (38-126) U/L Creatine Kinase (30-135) U/L Troponin I (0.000-0.034) ng/mL NT-Pro-B Natriuret Pep (0-1800) pg/mL Serum Total Protein (6.3-8.2) g/dL Albumin (3.5-5.0) g/dL Prealbumin (17.6-36.0) mg/dL 25-OH Vitamin D Total (30-100) ng/mL Ur Collection Type Urine Color (YELLOW) Urine Appearance (CLEAR) Urine pH (5-6) Ur Specific [place] (1.005-1.025) Urine Protein (Negative) Urine Ketones (NEGATIVE) Urine Blood (0-5) Carter/ul Urine Nitrite (NEGATIVE) Urine Bilirubin (NEGATIVE) Urine Urobilinogen (0-1) mg/dL Ur Leukocyte Esterase (NEGATIVE) Urine Microscopic RBC (0-2) /HPF Urine Microscopic WBC (0-5) /HPF Ur Epithelial Cells (FEW) /HPF Amorphous Crystals (NEGATIVE) /HPF Urine Bacteria (NEGATIVE) /HPF Urine Mucus (NEGATIVE) /HPF Urine Culture Reflexed (NO) Urine Glucose (NEGATIVE) mg/dL Urine Opiates Level POSITIVE (NEGATIVE) Ur Methadone NEGATIVE (NEGATIVE) Urine Barbiturates NEGATIVE (NEGATIVE) Ur Phencyclidine (PCP) NEGATIVE (NEGATIVE) Urine Amphetamine NEGATIVE (NEGATIVE) U Benzodiazepine Level NEGATIVE (NEGATIVE) Urine Cocaine NEGATIVE (NEGATIVE) Urine Marijuana (THC) NEGATIVE (NEGATIVE) Specimen Received 03/28/18 03/28/18 03/28/18 Range/Units 08:46 08:49 08:49 WBC (4.0-10.5) K/mm3 RBC (4.1-5.4) M/mm3 Hgb (12.0-16.0) gm/dl Hct (35-47) % MCV (78-100) fl MCH (26-32) pg MCHC (32-36) g/dl RDW (11.5-14.0) % Plt Count (150-450) K/mm3 MPV (6-9.5) fl Absolute Granulocytes (1.4-6.9) Segmented Neutrophils (36.0-66.0) % Lymphocytes (Manual) (24-44) % Platelet Estimate (NORMAL) RBC Morphology Polychromasia Poikilocytosis Anisocytosis PT 11.5 (9.95-12.35) SECONDS INR 0.99 (0.8-3.0) Puncture Site RIGHT BRACHIAL pCO2 32 L (35-45) mmHg pO2 188 H* (75-100) mmHg Base Excess 0.5 (-2.0-2.0) O2 Saturation 94.9 (94-100) g/dF ABG pH 7.47 H (7.35-7.45) ABG HCO3 23.3 (22-28) ABG O2 Sat (Measured) 99.9 (95-100) % Nicho Test YES A-a Gradient 0 a/A Ratio 1.00 Hemoglobin 16.1 Carboxyhemoglobin 3.3 (0.0-6.9) % THgb Methemoglobin 1.6 H (1.4-1.5) % Temperature 37.0 C POC O2 Flow Rate 32 % Sodium (137-145) mmol/L Potassium 3.4 L (3.5-5.1) mmol/L Chloride (98-107) mmol/L Carbon Dioxide (22-30) mmol/L Anion Gap (5-15) MEQ/L BUN (7-17) mg/dL Creatinine (0.52-1.04) mg/dL Estimated GFR ML/MIN Glucose (74-106) mg/dL Lactic Acid (0.4-2.0) Calcium (8.4-10.2) mg/dL Phosphorus (2.5-4.5) mg/dL Magnesium (1.6-2.3) mg/dL Total Bilirubin (0.2-1.3) mg/dL AST (14-36) U/L ALT (0-35) U/L Alkaline Phosphatase (38-126) U/L Creatine Kinase (30-135) U/L Troponin I 0.068 H* (0.000-0.034) ng/mL NT-Pro-B Natriuret Pep (0-1800) pg/mL Serum Total Protein (6.3-8.2) g/dL Albumin (3.5-5.0) g/dL Prealbumin (17.6-36.0) mg/dL 25-OH Vitamin D Total (30-100) ng/mL Ur Collection Type Urine Color (YELLOW) Urine Appearance (CLEAR) Urine pH (5-6) Ur Specific [place] (1.005-1.025) Urine Protein (Negative) Urine Ketones (NEGATIVE) Urine Blood (0-5) Carter/ul Urine Nitrite (NEGATIVE) Urine Bilirubin (NEGATIVE) Urine Urobilinogen (0-1) mg/dL Ur Leukocyte Esterase (NEGATIVE) Urine Microscopic RBC (0-2) /HPF Urine Microscopic WBC (0-5) /HPF Ur Epithelial Cells (FEW) /HPF Amorphous Crystals (NEGATIVE) /HPF Urine Bacteria (NEGATIVE) /HPF Urine Mucus (NEGATIVE) /HPF Urine Culture Reflexed (NO) Urine Glucose (NEGATIVE) mg/dL Urine Opiates Level (NEGATIVE) Ur Methadone (NEGATIVE) Urine Barbiturates (NEGATIVE) Ur Phencyclidine (PCP) (NEGATIVE) Urine Amphetamine (NEGATIVE) U Benzodiazepine Level (NEGATIVE) Urine Cocaine (NEGATIVE) Urine Marijuana (THC) (NEGATIVE) Specimen Received 03/28/18 03/28/18 03/28/18 Range/Units 11:15 11:35 11:40 WBC (4.0-10.5) K/mm3 RBC (4.1-5.4) M/mm3 Hgb (12.0-16.0) gm/dl Hct (35-47) % MCV (78-100) fl MCH (26-32) pg MCHC (32-36) g/dl RDW (11.5-14.0) % Plt Count (150-450) K/mm3 MPV (6-9.5) fl Absolute Granulocytes (1.4-6.9) Segmented Neutrophils (36.0-66.0) % Lymphocytes (Manual) (24-44) % Platelet Estimate (NORMAL) RBC Morphology Polychromasia Poikilocytosis Anisocytosis PT (9.95-12.35) SECONDS INR (0.8-3.0) Puncture Site pCO2 (35-45) mmHg pO2 (75-100) mmHg Base Excess (-2.0-2.0) O2 Saturation (94-100) g/dF ABG pH (7.35-7.45) ABG HCO3 (22-28) ABG O2 Sat (Measured) (95-100) % Nicho Test A-a Gradient a/A Ratio Hemoglobin Carboxyhemoglobin (0.0-6.9) % THgb Methemoglobin (1.4-1.5) % Temperature C POC O2 Flow Rate % Sodium (137-145) mmol/L Potassium (3.5-5.1) mmol/L Chloride (98-107) mmol/L Carbon Dioxide (22-30) mmol/L Anion Gap (5-15) MEQ/L BUN (7-17) mg/dL Creatinine (0.52-1.04) mg/dL Estimated GFR ML/MIN Glucose (74-106) mg/dL Lactic Acid (0.4-2.0) Calcium (8.4-10.2) mg/dL Phosphorus (2.5-4.5) mg/dL Magnesium (1.6-2.3) mg/dL Total Bilirubin (0.2-1.3) mg/dL AST (14-36) U/L ALT (0-35) U/L Alkaline Phosphatase (38-126) U/L Creatine Kinase (30-135) U/L Troponin I 0.072 H* (0.000-0.034) ng/mL NT-Pro-B Natriuret Pep (0-1800) pg/mL Serum Total Protein (6.3-8.2) g/dL Albumin (3.5-5.0) g/dL Prealbumin 29.28 (17.6-36.0) mg/dL 25-OH Vitamin D Total 39.7 (30-100) ng/mL Ur Collection Type Urine Color (YELLOW) Urine Appearance (CLEAR) Urine pH (5-6) Ur Specific [place] (1.005-1.025) Urine Protein (Negative) Urine Ketones (NEGATIVE) Urine Blood (0-5) Carter/ul Urine Nitrite (NEGATIVE) Urine Bilirubin (NEGATIVE) Urine Urobilinogen (0-1) mg/dL Ur Leukocyte Esterase (NEGATIVE) Urine Microscopic RBC (0-2) /HPF Urine Microscopic WBC (0-5) /HPF Ur Epithelial Cells (FEW) /HPF Amorphous Crystals (NEGATIVE) /HPF Urine Bacteria (NEGATIVE) /HPF Urine Mucus (NEGATIVE) /HPF Urine Culture Reflexed (NO) Urine Glucose (NEGATIVE) mg/dL Urine Opiates Level (NEGATIVE) Ur Methadone (NEGATIVE) Urine Barbiturates (NEGATIVE) Ur Phencyclidine (PCP) (NEGATIVE) Urine Amphetamine (NEGATIVE) U Benzodiazepine Level (NEGATIVE) Urine Cocaine (NEGATIVE) Urine Marijuana (THC) (NEGATIVE) Specimen Received 03/28/18 03/28/18 03/28/18 Range/Units 11:44 14:30 14:30 WBC (4.0-10.5) K/mm3 RBC (4.1-5.4) M/mm3 Hgb (12.0-16.0) gm/dl Hct (35-47) % MCV (78-100) fl MCH (26-32) pg MCHC (32-36) g/dl RDW (11.5-14.0) % Plt Count (150-450) K/mm3 MPV (6-9.5) fl Absolute Granulocytes (1.4-6.9) Segmented Neutrophils (36.0-66.0) % Lymphocytes (Manual) (24-44) % Platelet Estimate (NORMAL) RBC Morphology Polychromasia Poikilocytosis Anisocytosis PT (9.95-12.35) SECONDS INR (0.8-3.0) Puncture Site pCO2 (35-45) mmHg pO2 (75-100) mmHg Base Excess (-2.0-2.0) O2 Saturation (94-100) g/dF ABG pH (7.35-7.45) ABG HCO3 (22-28) ABG O2 Sat (Measured) (95-100) % Nicho Test A-a Gradient a/A Ratio Hemoglobin Carboxyhemoglobin (0.0-6.9) % THgb Methemoglobin (1.4-1.5) % Temperature C POC O2 Flow Rate % Sodium 133 L (137-145) mmol/L Potassium 3.7 (3.5-5.1) mmol/L Chloride 101 (98-107) mmol/L Carbon Dioxide 18 L (22-30) mmol/L Anion Gap 16.7 H (5-15) MEQ/L BUN 59 H (7-17) mg/dL Creatinine 2.88 H (0.52-1.04) mg/dL Estimated GFR 16.6 ML/MIN Glucose 317 H (74-106) mg/dL Lactic Acid 3.5 H (0.4-2.0) Calcium 13.6 H* (8.4-10.2) mg/dL Phosphorus (2.5-4.5) mg/dL Magnesium (1.6-2.3) mg/dL Total Bilirubin (0.2-1.3) mg/dL AST (14-36) U/L ALT (0-35) U/L Alkaline Phosphatase (38-126) U/L Creatine Kinase (30-135) U/L Troponin I 0.090 H* (0.000-0.034) ng/mL NT-Pro-B Natriuret Pep (0-1800) pg/mL Serum Total Protein (6.3-8.2) g/dL Albumin (3.5-5.0) g/dL Prealbumin (17.6-36.0) mg/dL 25-OH Vitamin D Total (30-100) ng/mL Ur Collection Type Urine Color (YELLOW) Urine Appearance (CLEAR) Urine pH (5-6) Ur Specific [place] (1.005-1.025) Urine Protein (Negative) Urine Ketones (NEGATIVE) Urine Blood (0-5) Carter/ul Urine Nitrite (NEGATIVE) Urine Bilirubin (NEGATIVE) Urine Urobilinogen (0-1) mg/dL Ur Leukocyte Esterase (NEGATIVE) Urine Microscopic RBC (0-2) /HPF Urine Microscopic WBC (0-5) /HPF Ur Epithelial Cells (FEW) /HPF Amorphous Crystals (NEGATIVE) /HPF Urine Bacteria (NEGATIVE) /HPF Urine Mucus (NEGATIVE) /HPF Urine Culture Reflexed (NO) Urine Glucose (NEGATIVE) mg/dL Urine Opiates Level (NEGATIVE) Ur Methadone (NEGATIVE) Urine Barbiturates (NEGATIVE) Ur Phencyclidine (PCP) (NEGATIVE) Urine Amphetamine (NEGATIVE) U Benzodiazepine Level (NEGATIVE) Urine Cocaine (NEGATIVE) Urine Marijuana (THC) (NEGATIVE) Specimen Received 03/28/18 03/28/18 03/29/18 Range/Units 15:10 20:00 05:10 WBC 31.7 H* (4.0-10.5) K/mm3 RBC 4.67 (4.1-5.4) M/mm3 Hgb 13.4 (12.0-16.0) gm/dl Hct 39.3 (35-47) % MCV 84.2 (78-100) fl MCH 28.7 (26-32) pg MCHC 34.1 (32-36) g/dl RDW 16.0 H (11.5-14.0) % Plt Count 134 L (150-450) K/mm3 MPV 10.5 H (6-9.5) fl Absolute Granulocytes 29.70 H (1.4-6.9) Segmented Neutrophils (36.0-66.0) % Lymphocytes (Manual) (24-44) % Platelet Estimate (NORMAL) RBC Morphology Polychromasia Poikilocytosis Anisocytosis PT (9.95-12.35) SECONDS INR (0.8-3.0) Puncture Site pCO2 (35-45) mmHg pO2 (75-100) mmHg Base Excess (-2.0-2.0) O2 Saturation (94-100) g/dF ABG pH (7.35-7.45) ABG HCO3 (22-28) ABG O2 Sat (Measured) (95-100) % Nicho Test A-a Gradient a/A Ratio Hemoglobin Carboxyhemoglobin (0.0-6.9) % THgb Methemoglobin (1.4-1.5) % Temperature C POC O2 Flow Rate % Sodium (137-145) mmol/L Potassium (3.5-5.1) mmol/L Chloride (98-107) mmol/L Carbon Dioxide (22-30) mmol/L Anion Gap (5-15) MEQ/L BUN (7-17) mg/dL Creatinine (0.52-1.04) mg/dL Estimated GFR ML/MIN Glucose (74-106) mg/dL Lactic Acid 3.3 H 2.3 H (0.4-2.0) Calcium (8.4-10.2) mg/dL Phosphorus (2.5-4.5) mg/dL Magnesium (1.6-2.3) mg/dL Total Bilirubin (0.2-1.3) mg/dL AST (14-36) U/L ALT (0-35) U/L Alkaline Phosphatase (38-126) U/L Creatine Kinase (30-135) U/L Troponin I (0.000-0.034) ng/mL NT-Pro-B Natriuret Pep (0-1800) pg/mL Serum Total Protein (6.3-8.2) g/dL Albumin (3.5-5.0) g/dL Prealbumin (17.6-36.0) mg/dL 25-OH Vitamin D Total (30-100) ng/mL Ur Collection Type Urine Color (YELLOW) Urine Appearance (CLEAR) Urine pH (5-6) Ur Specific [place] (1.005-1.025) Urine Protein (Negative) Urine Ketones (NEGATIVE) Urine Blood (0-5) Carter/ul Urine Nitrite (NEGATIVE) Urine Bilirubin (NEGATIVE) Urine Urobilinogen (0-1) mg/dL Ur Leukocyte Esterase (NEGATIVE) Urine Microscopic RBC (0-2) /HPF Urine Microscopic WBC (0-5) /HPF Ur Epithelial Cells (FEW) /HPF Amorphous Crystals (NEGATIVE) /HPF Urine Bacteria (NEGATIVE) /HPF Urine Mucus (NEGATIVE) /HPF Urine Culture Reflexed (NO) Urine Glucose (NEGATIVE) mg/dL Urine Opiates Level (NEGATIVE) Ur Methadone (NEGATIVE) Urine Barbiturates (NEGATIVE) Ur Phencyclidine (PCP) (NEGATIVE) Urine Amphetamine (NEGATIVE) U Benzodiazepine Level (NEGATIVE) Urine Cocaine (NEGATIVE) Urine Marijuana (THC) (NEGATIVE) Specimen Received 03/29/18 03/29/18 03/29/18 Range/Units 05:10 05:10 05:45 WBC (4.0-10.5) K/mm3 RBC (4.1-5.4) M/mm3 Hgb (12.0-16.0) gm/dl Hct (35-47) % MCV (78-100) fl MCH (26-32) pg MCHC (32-36) g/dl RDW (11.5-14.0) % Plt Count (150-450) K/mm3 MPV (6-9.5) fl Absolute Granulocytes (1.4-6.9) Segmented Neutrophils (36.0-66.0) % Lymphocytes (Manual) (24-44) % Platelet Estimate (NORMAL) RBC Morphology Polychromasia Poikilocytosis Anisocytosis PT (9.95-12.35) SECONDS INR (0.8-3.0) Puncture Site pCO2 (35-45) mmHg pO2 (75-100) mmHg Base Excess (-2.0-2.0) O2 Saturation (94-100) g/dF ABG pH (7.35-7.45) ABG HCO3 (22-28) ABG O2 Sat (Measured) (95-100) % Nicho Test A-a Gradient a/A Ratio Hemoglobin Carboxyhemoglobin (0.0-6.9) % THgb Methemoglobin (1.4-1.5) % Temperature C POC O2 Flow Rate % Sodium 136 L (137-145) mmol/L Potassium 3.1 L (3.5-5.1) mmol/L Chloride 108 H (98-107) mmol/L Carbon Dioxide 19 L (22-30) mmol/L Anion Gap 12.0 (5-15) MEQ/L BUN 56 H (7-17) mg/dL Creatinine 2.47 H (0.52-1.04) mg/dL Estimated GFR 19.8 ML/MIN Glucose 191 H (74-106) mg/dL Lactic Acid 1.5 (0.4-2.0) Calcium 11.9 H (8.4-10.2) mg/dL Phosphorus (2.5-4.5) mg/dL Magnesium (1.6-2.3) mg/dL Total Bilirubin 0.50 (0.2-1.3) mg/dL AST 26 (14-36) U/L ALT 13 (0-35) U/L Alkaline Phosphatase 59 (38-126) U/L Creatine Kinase (30-135) U/L Troponin I 0.091 H* (0.000-0.034) ng/mL NT-Pro-B Natriuret Pep (0-1800) pg/mL Serum Total Protein 5.6 L (6.3-8.2) g/dL Albumin 2.9 L (3.5-5.0) g/dL Prealbumin (17.6-36.0) mg/dL 25-OH Vitamin D Total (30-100) ng/mL Ur Collection Type Urine Color (YELLOW) Urine Appearance (CLEAR) Urine pH (5-6) Ur Specific [place] (1.005-1.025) Urine Protein (Negative) Urine Ketones (NEGATIVE) Urine Blood (0-5) Carter/ul Urine Nitrite (NEGATIVE) Urine Bilirubin (NEGATIVE) Urine Urobilinogen (0-1) mg/dL Ur Leukocyte Esterase (NEGATIVE) Urine Microscopic RBC (0-2) /HPF Urine Microscopic WBC (0-5) /HPF Ur Epithelial Cells (FEW) /HPF Amorphous Crystals (NEGATIVE) /HPF Urine Bacteria (NEGATIVE) /HPF Urine Mucus (NEGATIVE) /HPF Urine Culture Reflexed (NO) Urine Glucose (NEGATIVE) mg/dL Urine Opiates Level (NEGATIVE) Ur Methadone (NEGATIVE) Urine Barbiturates (NEGATIVE) Ur Phencyclidine (PCP) (NEGATIVE) Urine Amphetamine (NEGATIVE) U Benzodiazepine Level (NEGATIVE) Urine Cocaine (NEGATIVE) Urine Marijuana (THC) (NEGATIVE) Specimen Received Radiology Exams: Radiology Procedures Category Date Time Status ABDOMEN AND PELVIS W/0 CONTRAS [CT] Stat Exams 03/28/18 11:51 Completed CHEST 1 VIEW (PORTABLE) Stat Exams 03/28/18 08:18 Completed HEAD WITHOUT CONTRAST [CT] Stat Exams 03/28/18 08:19 Completed Assessment/Plan (1) Sepsis Current Visit: Yes Status: Acute Assessment & Plan: severe with UTI distended gallbladder and nonspecific free fluid in abdomen cover empiric for health care acquired infection currently with [facility] to dose and zosyn renal adjusted for her creat clearance of about 10 at 2.25 q8h lactic acidosis resolved this am she has severe dehydration she does take triamteren/hctz which will be held she also takes calcium and vitamin d which are also stopped she has received calcitonin X2 doses and calcium is improving Cl increasing with the renal failure change to 0.45 NaC at 125 mL/h and replace K with a 40 mEq K rider pth, pthrp, vitamin d and 1,25 oh vitamin d pending on initial testing there is no elevated protein at this time and the alkaline phosphatase is normal hopefully this hypercalcemia is just due to severe dehydration with excess calcium and vitamin D intake She has normal CK and minimally elevated troponin that is stable given her htn and degree of renal failure repeat ekg no significant changes will observe and trend this, but she does not appear to be having acute ID at this point rather a troponin leak and renal failure more likely. prognosis remains guarded (2) Acute metabolic encephalopathy Current Visit: Yes Status: Acute Code(s): G93.41 - METABOLIC ENCEPHALOPATHY (3) Beqxh-qm-zqmsler kidney injury Current Visit: Yes Status: Acute Code(s): N17.9 - ACUTE KIDNEY FAILURE, UNSPECIFIED; N18.9 - CHRONIC KIDNEY DISEASE, UNSPECIFIED (4) Hypercalcemia Current Visit: Yes Status: Acute Code(s): E83.52 - HYPERCALCEMIA (5) UTI (urinary tract infection) Current Visit: Yes Status: Acute Qualifiers: Urinary tract infection type: site unspecified Hematuria presence: without hematuria Qualified Code(s): N39.0 - Urinary tract infection, site not specified Code(s): N39.0 - URINARY TRACT INFECTION, SITE NOT SPECIFIED (6) Essential hypertension Current Visit: Yes Status: Chronic Code(s): I10 - ESSENTIAL (PRIMARY) HYPERTENSION
[2018-03-29] MEDS: POTASSIUM CHLORIDE 20 mEq IN WATER 100ML 20 MEQ/100 ML BAG IV SCH ×2 (08:15→09:59)
[2018-03-29] MEDS: MORPHINE SULFATE 2 MG INJ IV PRN ×5 (08:56→17:42)
[2018-03-29] MEDS: Miralax Powder 17GM PACKET PO SCH (08:57)
[2018-03-29] MEDS: ENOXAPARIN SODIUM SQ SCH (08:57)
[2018-03-29 09:51] LABS: ANISOCYTOSIS 1+; Lymphocytes 3 % (24-44); Monocyte 3 % (0.0-12.0); Neutrophils 94 % (36.0-66.0); Total Cells Counted 100; Toxic Granulation 1+
[2018-03-29 09:54] LABS: Platelet Estimate NORMAL (NORMAL)
[2018-03-29] MEDS ORDERED: ROCEPHIN 1 Gm-D5w 50 ml Bag** 1 G/50 ML IVPB IV SCH (10:00)
[2018-03-29] MEDS ORDERED: GAVILAX PO SCH (10:00)
[2018-03-30] MEDS: Zosyn 2.25 GM 2.25 GM in D5w 100ML Mini Bag 100 ML 100 ML IV SCH ×3 (05:53→20:08)
[2018-03-30] MEDS ORDERED: TROUGH DRUG LEVELS IJ ONE (06:00)
[2018-03-30 06:09] LABS: Granulocyte Absolute (ANC) 27.92 (1.4-6.9); Hematocrit 35.8 % (35-47); Hemoglobin 12.1 gm/dl (12.0-16.0); Mean Cell Volume 84.8 fl (78-100); Mean Corpuscular Hemoglobin 28.7 pg (26-32); Mean Corpuscular Hgb Concent. 33.8 g/dl (32-36); Mean Platelet Volume 10.3 fl (6-9.5); Platelet Count 124 K/mm3 (150-450); Red Blood Count 4.22 M/mm3 (4.1-5.4); Red Cell Distribution Width 16.2 % (11.5-14.0)
[2018-03-30 06:27] LABS: ALBUMIN 2.6 g/dL (3.5-5.0); ANION GAP 11.4 MEQ/L (5-15); BILIRUBIN,TOTAL 0.6 mg/dL (0.2-1.3); Creatinine 1 2.38 mg/dL (0.52-1.04); Potassium 3.6 mmol/L (3.5-5.1); Total Protein 5.4 g/dL (6.3-8.2)
[2018-03-30] MEDS: ENOXAPARIN SODIUM SQ SCH (07:39)
[2018-03-30] MEDS: MORPHINE SULFATE 2 MG INJ IV PRN ×2 (07:39→21:36)
--- NOTE | 2018-03-30 08:02 | PCM.NOTE ---
Date and Time: 03/30/18 0801 Subjective Assessment: more alert now but still moaning in pain but not able to describe really anything about the pain or pinpoint a location. she is not oriented she has not tried to take anything po yet. no diarrhea. Objective Exam Neurologic Exam: alert, other (follows commands no focal deficits), No oriented x 3 Skin Exam: warm, dry Eye Exam: No scleral icterus Ears, Nose, Throat Exam: moist mucous membranes Neck Exam: normal inspection, non-tender, supple Respiratory Exam: normal breath sounds, lungs clear Cardiovascular Exam: regular rate/rhythm, normal heart sounds Gastrointestinal/Abdomen Exam: soft, normal bowel sounds, No tenderness, No distention Extremity Exam: normal inspection, No calf tenderness, No pedal edema Back Exam: normal inspection OBJECTIVE DATA Vital Signs: Vital Signs - 24 hr Temp Pulse Resp BP Pulse Ox 03/30/18 07:15 97.8 F 99 H 20 123/83 96 03/30/18 04:00 97.2 F 92 H 18 116/78 99 03/30/18 00:01 95 H 03/30/18 00:00 96.9 F 95 H 20 132/78 96 03/29/18 20:15 93 H 20 97 03/29/18 20:00 96.5 F 93 H 18 141/72 97 03/29/18 16:00 85 16 140/76 98 03/29/18 11:42 98 F 84 15 149/92 98 03/29/18 08:05 68 20 96 Oxygen-Last 24 hours O2 Percentage 2 Liters = 28% O2 Percentage 2 Liters = 28% O2 Percentage 2 Liters = 28% O2 Percentage 2 Liters = 28% O2 Percentage 2 Liters = 28% O2 Percentage 2 Liters = 28% Pain Assessment - Last Documented Pain Intensity 0 Pain Scale Used 0-10 Pain Scale Intake and Output: Intake & Output 03/27/18 03/28/18 03/29/18 03/30/18 11:59 11:59 11:59 11:59 Intake Total 4331 3122 Output Total 1100 925 Balance 3231 2197 Weight 53.524 kg Lab Results: Accuchecks Date 03/30/18 Date 03/29/18 Date 03/29/18 Date 03/29/18 Time 16:11 Time 09:43 Accucheck Value: 132 Accucheck Value: 184 Accucheck Value: 213 Accucheck Value: 168 Lab Results-Last 24 Hours 03/28/18 03/29/18 03/29/18 Range/Units 08:45 05:10 14:05 WBC (4.0-10.5) K/mm3 RBC (4.1-5.4) M/mm3 Hgb (12.0-16.0) gm/dl Hct (35-47) % MCV (78-100) fl MCH (26-32) pg MCHC (32-36) g/dl RDW (11.5-14.0) % Plt Count (150-450) K/mm3 MPV (6-9.5) fl Absolute Granulocytes (1.4-6.9) Segmented Neutrophils 94 H (36.0-66.0) % Lymphocytes (Manual) 3 L (24-44) % Monocytes (Manual) 3 (0.0-12.0) % Toxic Granulation 1+ Platelet Estimate NORMAL (NORMAL) RBC Morphology NORMAL Anisocytosis 1+ Sodium (137-145) mmol/L Potassium 3.6 (3.5-5.1) mmol/L Chloride (98-107) mmol/L Carbon Dioxide (22-30) mmol/L Anion Gap (5-15) MEQ/L BUN (7-17) mg/dL Creatinine (0.52-1.04) mg/dL Estimated GFR ML/MIN Glucose (74-106) mg/dL Calcium (8.4-10.2) mg/dL Total Bilirubin (0.2-1.3) mg/dL AST (14-36) U/L ALT (0-35) U/L Alkaline Phosphatase (38-126) U/L Serum Total Protein (6.3-8.2) g/dL Albumin (3.5-5.0) g/dL PTH Intact 100 H (15-72) pg/mL Vancomycin Trough (10-20) ug/mL 03/30/18 03/30/18 03/30/18 Range/Units 05:00 05:00 05:00 WBC 30.0 H* (4.0-10.5) K/mm3 RBC 4.22 (4.1-5.4) M/mm3 Hgb 12.1 (12.0-16.0) gm/dl Hct 35.8 (35-47) % MCV 84.8 (78-100) fl MCH 28.7 (26-32) pg MCHC 33.8 (32-36) g/dl RDW 16.2 H (11.5-14.0) % Plt Count 124 L (150-450) K/mm3 MPV 10.3 H (6-9.5) fl Absolute Granulocytes 27.92 H (1.4-6.9) Segmented Neutrophils (36.0-66.0) % Lymphocytes (Manual) (24-44) % Monocytes (Manual) (0.0-12.0) % Toxic Granulation Platelet Estimate (NORMAL) RBC Morphology Anisocytosis Sodium 134 L (137-145) mmol/L Potassium 3.6 (3.5-5.1) mmol/L Chloride 107 (98-107) mmol/L Carbon Dioxide 20 L (22-30) mmol/L Anion Gap 11.4 (5-15) MEQ/L BUN 53 H (7-17) mg/dL Creatinine 2.38 H (0.52-1.04) mg/dL Estimated GFR 20.6 ML/MIN Glucose 146 H (74-106) mg/dL Calcium 10.0 (8.4-10.2) mg/dL Total Bilirubin 0.60 (0.2-1.3) mg/dL AST 21 (14-36) U/L ALT 14 (0-35) U/L Alkaline Phosphatase 54 (38-126) U/L Serum Total Protein 5.4 L (6.3-8.2) g/dL Albumin 2.6 L (3.5-5.0) g/dL PTH Intact (15-72) pg/mL Vancomycin Trough 8.12 L (10-20) ug/mL Radiology Exams: Radiology Procedures Category Date Time Status ABDOMEN AND PELVIS W/0 CONTRAS [CT] Stat Exams 03/28/18 11:51 Completed CHEST 1 VIEW (PORTABLE) Stat Exams 03/28/18 08:18 Completed HEAD WITHOUT CONTRAST [CT] Stat Exams 03/28/18 08:19 Completed Multi-Disciplinary Progress Notes: Multi-Disciplinary Progress Notes 03/30/18 06:57 Pharmacy Note by Harshil Upton 03/30/81 Vancomycin Trough = 8.12 SR Cr = 2.36 CrCl = 12.5 ml/min Continue Vancomycin at 19 mg/kg 1000 mg q48h Recheck Trough on 04/01/18 with AM Blood Draw. Rosetta Initialized on 03/30/18 06:57 - END OF NOTE Assessment/Plan (1) Sepsis Current Visit: Yes Status: Acute Assessment & Plan: severe with UTI distended gallbladder and nonspecific free fluid in abdomen will continue zosyn stop vanc with e. coli in urine as only source at this time she has severe dehydration she does take triamteren/hctz which will be held she also takes calcium and vitamin d which are also stopped she has received calcitonin X2 doses and calcium is improving renal failure acute on chronic slowly improving on 0.45 NaC at 125 mL/h and replace K pth elevated to 100 pthrp, and 1,25 oh vitamin d pending on initial testing there is no elevated protein at this time and the alkaline phosphatase is normal hopefully this hypercalcemia is just due to severe dehydration with excess calcium and vitamin D intake with her chronic renal failure and secondary hyperparthyroidism prognosis remains guarded attempt regular diet today with her improved cognition (2) Acute metabolic encephalopathy Current Visit: Yes Status: Acute Code(s): G93.41 - METABOLIC ENCEPHALOPATHY (3) Vyhiy-tm-[id number] kidney injury Current Visit: Yes Status: Acute Code(s): N17.9 - ACUTE KIDNEY FAILURE, UNSPECIFIED; N18.9 - CHRONIC KIDNEY DISEASE, UNSPECIFIED (4) Hypercalcemia Current Visit: Yes Status: Acute Code(s): E83.52 - HYPERCALCEMIA (5) UTI (urinary tract infection) Current Visit: Yes Status: Acute Qualifiers: Urinary tract infection type: site unspecified Hematuria presence: without hematuria Qualified Code(s): N39.0 - Urinary tract infection, site not specified Code(s): N39.0 - URINARY TRACT INFECTION, SITE NOT SPECIFIED (6) Essential hypertension Current Visit: Yes Status: Chronic Code(s): I10 - ESSENTIAL (PRIMARY) HYPERTENSION (7) Hyperparathyroidism Current Visit: Yes Status: Acute Code(s): E21.3 - HYPERPARATHYROIDISM, UNSPECIFIED
[2018-03-30 08:17] LABS: ANISOCYTOSIS 1+; Lymphocytes 6 % (24-44); Neutrophils 94 % (36.0-66.0); Platelet Estimate NORMAL (NORMAL); Total Cells Counted 100
[2018-03-30] MEDS ORDERED: VANCOCIN 1 GM VIAL*** 1 GM in Sodium Chloride 0.9% 250 ML 250 ML IV SCH (10:00)
[2018-03-30] MEDS: Miralax Powder 17GM PACKET PO SCH (10:45)
[2018-03-30] MEDS: NovoLOG Insulin SQ PRN ×3 (12:44→21:31)
[2018-03-31] MEDS: Zosyn 2.25 GM 2.25 GM in D5w 100ML Mini Bag 100 ML 100 ML IV SCH ×3 (05:17→21:38)
[2018-03-31] MEDS: NovoLOG Insulin SQ PRN (07:49)
--- NOTE | 2018-03-31 08:31 | PCM.NOTE ---
Date and Time: 03/31/18829 Subjective Assessment: not wanting to eat or drink briefly talks to her son in one word answers. complaining of tongue pain Objective Exam General Appearance: no apparent distress Neurologic Exam: alert, cooperative, No oriented x 3 Skin Exam: warm, dry Eye Exam: pale conjunctivae, No scleral icterus Ears, Nose, Throat Exam: dry mucous membranes Neck Exam: normal inspection, non-tender, supple Respiratory Exam: crackles/rales, No wheezing Cardiovascular Exam: tachycardia Gastrointestinal/Abdomen Exam: soft, normal bowel sounds, No tenderness, No distention Extremity Exam: pedal edema, No deformities, No tenderness OBJECTIVE DATA Vital Signs: Vital Signs - 24 hr Temp Pulse Resp BP Pulse Ox 03/31/18 07:42 18 03/31/18 07:01 97.7 F 101 H 18 126/62 94 L 03/31/18 04:00 96.9 F 109 H 20 137/73 92 L 03/31/18 00:00 96.7 F 118 H 22 167/74 94 L 03/30/18 20:00 97.8 F 111 H 22 132/84 94 L 03/30/18 19:06 94 L 03/30/18 16:31 96.9 F 101 H 18 139/75 95 03/30/18 16:00 97.8 F 98 H 18 131/69 96 03/30/18 14:12 96 03/30/18 12:00 97.8 F 98 H 18 131/69 95 Pain Assessment - Last Documented Pain Intensity 5 Pain Scale Used [facility] Intake and Output: Intake & Output 03/28/18 03/29/18 03/30/18 03/31/18 11:59 11:59 11:59 11:59 Intake Total 4331 3122 210 Output Total 1100 925 675 Balance 3231 2197 -465 Weight 53.524 kg 53.524 kg Lab Results: Accuchecks Date 03/31/18 Date 03/30/18 Date 03/30/18 Time 07:47 Time 21:30 Time 16:30 Accucheck Value: 216 Accucheck Value: 230 Lab Results-Last 24 Hours 03/30/18 Range/Units 10:55 Hemoglobin A1c 6.91 H (4.5-6.0) % Assessment/Plan (1) Sepsis Current Visit: Yes Status: Acute Assessment & Plan: severe with UTI distended gallbladder and nonspecific free fluid in abdomen will continue zosyn with e. coli in urine as only source at this time she has severe dehydration she does take triamteren/hctz which will be held she also takes calcium and vitamin d which are also stopped she has received calcitonin X2 doses and calcium is improved renal failure acute on chronic slowly improving on 0.45 NaC decrease to 80 mL/h and replace K pth elevated to 100 pthrp, and 1,25 oh vitamin d pending on initial testing there is no elevated protein at this time and the alkaline phosphatase is normal hopefully this hypercalcemia is just due to severe dehydration with excess calcium and vitamin D intake with her chronic renal failure and secondary hyperparthyroidism prognosis remains guarded attempt regular diet today (2) Acute metabolic encephalopathy Current Visit: Yes Status: Acute Code(s): G93.41 - METABOLIC ENCEPHALOPATHY (3) [id number] kidney injury Current Visit: Yes Status: Acute Code(s): N17.9 - ACUTE KIDNEY FAILURE, UNSPECIFIED; N18.9 - CHRONIC KIDNEY DISEASE, UNSPECIFIED (4) Hypercalcemia Current Visit: Yes Status: Resolved Code(s): E83.52 - HYPERCALCEMIA (5) UTI (urinary tract infection) Current Visit: Yes Status: Acute Qualifiers: Urinary tract infection type: site unspecified Hematuria presence: without hematuria Qualified Code(s): N39.0 - Urinary tract infection, site not specified Code(s): N39.0 - URINARY TRACT INFECTION, SITE NOT SPECIFIED (6) Essential hypertension Current Visit: Yes Status: Chronic Code(s): I10 - ESSENTIAL (PRIMARY) HYPERTENSION (7) Hyperparathyroidism Current Visit: Yes Status: Acute Code(s): E21.3 - HYPERPARATHYROIDISM, UNSPECIFIED
[2018-03-31 09:02] LABS: Basophil (Absolute #) 0.01 (0-0.4); Eosinophil (Absolute #) 0.01 (0-0.5); Granulocyte Absolute (ANC) 23.77 (1.4-6.9); Hematocrit 33.6 % (35-47); Hemoglobin 11.6 gm/dl (12.0-16.0); Lymphocyte (Absolute #) 1.26 (1.0-4.6); Lymphocytes % 4.9 % (24.0-44.0); Mean Cell Volume 83.8 fl (78-100); Mean Corpuscular Hemoglobin 28.9 pg (26-32); Mean Corpuscular Hgb Concent. 34.5 g/dl (32-36); Mean Platelet Volume 10.8 fl (6-9.5); Monocyte (Absolute #) 0.74 (0.0-1.3); Monocytes % 2.9 % (0.0-12.0); Platelet Count 132 K/mm3 (150-450); Red Blood Count 4.01 M/mm3 (4.1-5.4); Red Cell Distribution Width 16.4 % (11.5-14.0)
[2018-03-31 09:08] LABS: White Blood Count 25.8 K/mm3 (4.0-10.5)
[2018-03-31 09:15] LABS: ALBUMIN 2.8 g/dL (3.5-5.0); ANION GAP 15.4 MEQ/L (5-15); BILIRUBIN,TOTAL 0.6 mg/dL (0.2-1.3); Calcium 8.9 mg/dL (8.4-10.2); Creatinine 1 2.3 mg/dL (0.52-1.04); Total Protein 5.7 g/dL (6.3-8.2)
[2018-03-31] MEDS: Miralax Powder 17GM PACKET PO SCH (09:43)
[2018-03-31] MEDS: ENOXAPARIN SODIUM SQ SCH (09:44)
[2018-03-31 10:23] LABS: Granulocytes % 92.2 % (36.0-66.0)
[2018-03-31 10:26] LABS: BAND 4 % (0.0-2.0); Neutrophils 92 % (36.0-66.0); Total Cells Counted 100
[2018-03-31 10:27] LABS: Lymphocytes 1 % (24-44); Monocyte 3 % (0.0-12.0)
[2018-03-31] MEDS: POTASSIUM CHLORIDE 20 mEq IN WATER 100ML 20 MEQ/100 ML BAG IV SCH ×2 (10:48→12:56)
[2018-03-31] MEDS: MORPHINE SULFATE 2 MG INJ IV PRN ×2 (12:16→14:20)
[2018-03-31 14:39] LABS: Vitamin D 1,25 Dihydroxy 8.8 pg/mL (26.1-95.0)
[2018-03-31] MEDS ORDERED: Lasix 20 MG/2 ML IV SCH (17:00)
[2018-04-01] MEDS: Zosyn 2.25 GM 2.25 GM in D5w 100ML Mini Bag 100 ML 100 ML IV SCH ×3 (04:53→20:13)
[2018-04-01] MEDS: MORPHINE SULFATE 2 MG INJ IV PRN ×4 (05:04→16:21)
[2018-04-01 05:48] LABS: Granulocyte Absolute (ANC) 19.17 (1.4-6.9); Hematocrit 33.8 % (35-47); Hemoglobin 11.4 gm/dl (12.0-16.0); Mean Cell Volume 84.1 fl (78-100); Mean Corpuscular Hgb Concent. 33.7 g/dl (32-36); Mean Platelet Volume 11.4 fl (6-9.5); Platelet Count 142 K/mm3 (150-450); Red Blood Count 4.02 M/mm3 (4.1-5.4); Red Cell Distribution Width 16.5 % (11.5-14.0); White Blood Count 21.4 K/mm3 (4.0-10.5)
[2018-04-01 05:56] LABS: Mean Corpuscular Hemoglobin 28.3 pg (26-32)
[2018-04-01 05:57] LABS: ALBUMIN 2.7 g/dL (3.5-5.0); ANION GAP 15.8 MEQ/L (5-15); BILIRUBIN,TOTAL 0.7 mg/dL (0.2-1.3); Calcium 9.5 mg/dL (8.4-10.2); Creatinine 1 2.48 mg/dL (0.52-1.04); Total Protein 5.6 g/dL (6.3-8.2)
[2018-04-01 06:17] LABS: Potassium 2.8 mmol/L (3.5-5.1)
[2018-04-01 07:22] LABS: BAND 2 % (0.0-2.0); Lymphocytes 7 % (24-44); Monocyte 4 % (0.0-12.0); Neutrophils 87 % (36.0-66.0)
[2018-04-01 07:23] LABS: Platelet Estimate DECREASED (NORMAL); Total Cells Counted 100
[2018-04-01] MEDS: POTASSIUM CHLORIDE 20 mEq IN WATER 100ML 20 MEQ/100 ML BAG IV SCH ×2 (07:54→09:59)
[2018-04-01] MEDS ORDERED: LOPRESSOR 5 MG/5 ML INJECTION IV ONE (07:57)
--- NOTE | 2018-04-01 08:04 | PCM.NOTE ---
Date and Time: 04/01/18 0803 OBJECTIVE DATA Vital Signs: Vital Signs - 24 hr Temp Pulse Resp BP Pulse Ox 04/01/18 07:22 16 04/01/18 06:45 97.8 F 110 H 16 133/84 95 04/01/18 04:00 98.2 F 107 H 20 139/84 93 L 04/01/18 00:00 18 03/31/18 23:58 98.5 F 116 H 18 135/85 93 L 03/31/18 20:00 97.9 F 115 H 17 142/83 94 L 03/31/18 16:00 97.8 F 105 H 18 160/84 94 L 03/31/18 12:00 18 03/31/18 11:26 97.9 F 108 H 18 150/67 95 Pain Assessment - Last Documented Pain Intensity 5 Pain Scale Used [facility] Intake and Output: Intake & Output 03/29/18 03/30/18 03/31/18 04/01/18 11:59 11:59 11:59 11:59 Intake Total 4331 3122 280 6563 Output Total 1100 364 782 9293 Balance 3231 2197 -395 4338 Weight 53.524 kg Lab Results: Accuchecks Date 04/01/18 Date 03/31/18 Date 03/31/18 Date 03/31/18 Time 07:22 Time 21:30 Time 01:37 Time 12:03 Accucheck Value: 191 Accucheck Value: 131 Accucheck Value: 98 Lab Results-Last 24 Hours 03/28/18 03/31/18 03/31/18 Range/Units 20:38 08:45 08:45 WBC 25.8 H* (4.0-10.5) K/mm3 RBC 4.01 L (4.1-5.4) M/mm3 Hgb 11.6 L (12.0-16.0) gm/dl Hct 33.6 L (35-47) % MCV 83.8 (78-100) fl MCH 28.9 (26-32) pg MCHC 34.5 (32-36) g/dl RDW 16.4 H (11.5-14.0) % Plt Count 132 L (150-450) K/mm3 MPV 10.8 H (6-9.5) fl Gran % 92.2 H (36.0-66.0) % Eos # (Auto) 0.01 (0-0.5) Absolute Lymphs (auto) 1.26 (1.0-4.6) Absolute Monos (auto) 0.74 (0.0-1.3) Lymphocytes % 4.9 L (24.0-44.0) % Monocytes % 2.9 (0.0-12.0) % Eosinophils % 0.0 (0.00-5.0) % Basophils % 0.0 (0.0-0.4) % Absolute Granulocytes 23.77 H (1.4-6.9) Segmented Neutrophils 92 H (36.0-66.0) % Band Neutrophils 4 H (0.0-2.0) % Lymphocytes (Manual) 1 L (24-44) % Monocytes (Manual) 3 (0.0-12.0) % Basophils # 0.01 (0-0.4) Platelet Estimate (NORMAL) RBC Morphology Sodium 133 L (137-145) mmol/L Potassium 3.0 L (3.5-5.1) mmol/L Chloride 105 (98-107) mmol/L Carbon Dioxide 16 L (22-30) mmol/L Anion Gap 15.4 H (5-15) MEQ/L BUN 50 H (7-17) mg/dL Creatinine 2.30 H (0.52-1.04) mg/dL Estimated GFR 21.5 ML/MIN Glucose 119 H (74-106) mg/dL Calcium 8.9 (8.4-10.2) mg/dL Total Bilirubin 0.60 (0.2-1.3) mg/dL AST 22 (14-36) U/L ALT 17 (0-35) U/L Alkaline Phosphatase 80 (38-126) U/L Serum Total Protein 5.7 L (6.3-8.2) g/dL Albumin 2.8 L (3.5-5.0) g/dL Vit D 1,25-Dihydroxy 8.8 L (26.1-95.0) pg/mL PTH Related Protein Pending 03/31/18 04/01/18 04/01/18 Range/Units 17:00 05:20 05:20 WBC 21.4 H (4.0-10.5) K/mm3 RBC 4.02 L (4.1-5.4) M/mm3 Hgb 11.4 L (12.0-16.0) gm/dl Hct 33.8 L (35-47) % MCV 84.1 (78-100) fl MCH 28.3 (26-32) pg MCHC 33.7 (32-36) g/dl RDW 16.5 H (11.5-14.0) % Plt Count 142 L (150-450) K/mm3 MPV 11.4 H (6-9.5) fl Gran % (36.0-66.0) % Eos # (Auto) (0-0.5) Absolute Lymphs (auto) (1.0-4.6) Absolute Monos (auto) (0.0-1.3) Lymphocytes % (24.0-44.0) % Monocytes % (0.0-12.0) % Eosinophils % (0.00-5.0) % Basophils % (0.0-0.4) % Absolute Granulocytes 19.17 H (1.4-6.9) Segmented Neutrophils 87 H (36.0-66.0) % Band Neutrophils 2 (0.0-2.0) % Lymphocytes (Manual) 7 L (24-44) % Monocytes (Manual) 4 (0.0-12.0) % Basophils # (0-0.4) Platelet Estimate DECREASED (NORMAL) RBC Morphology NORMAL Sodium 132 L (137-145) mmol/L Potassium 3.5 2.8 L* (3.5-5.1) mmol/L Chloride 104 (98-107) mmol/L Carbon Dioxide 14 L* (22-30) mmol/L Anion Gap 15.8 H (5-15) MEQ/L BUN 49 H (7-17) mg/dL Creatinine 2.48 H (0.52-1.04) mg/dL Estimated GFR 19.7 ML/MIN Glucose 168 H (74-106) mg/dL Calcium 9.5 (8.4-10.2) mg/dL Total Bilirubin 0.70 (0.2-1.3) mg/dL AST 15 (14-36) U/L ALT 15 (0-35) U/L Alkaline Phosphatase 88 (38-126) U/L Serum Total Protein 5.6 L (6.3-8.2) g/dL Albumin 2.7 L (3.5-5.0) g/dL Vit D 1,25-Dihydroxy (26.1-95.0) pg/mL PTH Related Protein Multi-Disciplinary Progress Notes: Multi-Disciplinary Progress Notes 03/31/18 11:00 (created 03/31/18 13:47) Case Management Note by Meli Meyers VISITED WITH PT AND SON AT BEDSIDE. REVIEWED DISCHARGE NEEDS. SON REPORTS THAT THEIR PLAN IS FOR PT TO RETURN TO [facility] ON DISCHARGE. DENIES ADDNL NEEDS AT PRESENT. WILL CONTINUE TO FOLLOW FOR ALL DC NEEDS. Initialized on 03/31/18 13:47 - END OF NOTE Assessment/Plan (1) Sepsis Current Visit: Yes Status: Acute (2) Acute metabolic encephalopathy Current Visit: Yes Status: Acute Code(s): G93.41 - METABOLIC ENCEPHALOPATHY (3) Bylqs-vw-kvzimzn kidney injury Current Visit: Yes Status: Acute Code(s): N17.9 - ACUTE KIDNEY FAILURE, UNSPECIFIED; N18.9 - CHRONIC KIDNEY DISEASE, UNSPECIFIED (4) Hypercalcemia Current Visit: Yes Status: Resolved Code(s): E83.52 - HYPERCALCEMIA (5) UTI (urinary tract infection) Current Visit: Yes Status: Acute Qualifiers: Urinary tract infection type: site unspecified Hematuria presence: without hematuria Qualified Code(s): N39.0 - Urinary tract infection, site not specified Code(s): N39.0 - URINARY TRACT INFECTION, SITE NOT SPECIFIED (6) Essential hypertension Current Visit: Yes Status: Chronic Code(s): I10 - ESSENTIAL (PRIMARY) HYPERTENSION (7) Hyperparathyroidism Current Visit: Yes Status: Acute Code(s): E21.3 - HYPERPARATHYROIDISM, UNSPECIFIED
[2018-04-01] MEDS: D5w/0.45NS W/ 40MEQ KCl 1000 Ml 1,000 ML IV SCH ×2 (08:16→20:13)
--- NOTE | 2018-04-01 08:24 | PCM.NOTE ---
Date and Time: 04/01/18818 Subjective Assessment: still drowsy complaining of arm pain had good output last night she about 7:15 converted to afib with rvr and had low K this am. she is not able to provide further history Objective Exam General Appearance: no apparent distress, thin, other (drowsy opens eyes and tracks tries to answer questions follows simple commands) Neurologic Exam: cooperative, normal mood/affect, nml cerebellar function, sensation nml, No oriented x 3, No motor deficits Skin Exam: normal color, warm, dry Eye Exam: PERRL, EOMI, eyes nml inspection Ears, Nose, Throat Exam: normal ENT inspection, pharynx normal, moist mucous membranes Neck Exam: normal inspection, non-tender, supple, full range of motion Respiratory Exam: normal breath sounds, lungs clear, No respiratory distress Cardiovascular Exam: tachycardia Gastrointestinal/Abdomen Exam: soft, No tenderness, No mass Extremity Exam: normal inspection, normal range of motion Back Exam: normal inspection, normal range of motion, No CVA tenderness, No vertebral tenderness Pelvic Exam: deferred Rectal Exam: deferred OBJECTIVE DATA Vital Signs: Vital Signs - 24 hr Temp Pulse Resp BP Pulse Ox 04/01/18 07:22 16 04/01/18 06:45 97.8 F 110 H 16 133/84 95 04/01/18 04:00 98.2 F 107 H 20 139/84 93 L 04/01/18 00:00 18 03/31/18 23:58 98.5 F 116 H 18 135/85 93 L 03/31/18 20:00 97.9 F 115 H 17 142/83 94 L 03/31/18 16:00 97.8 F 105 H 18 160/84 94 L 03/31/18 12:00 18 03/31/18 11:26 97.9 F 108 H 18 150/67 95 Pain Assessment - Last Documented Pain Intensity 5 Pain Scale Used [facility] Intake and Output: Intake & Output 03/29/18 03/30/18 03/31/18 04/01/18 11:59 11:59 11:59 11:59 Intake Total 4331 3122 280 6563 Output Total 1100 898 680 4795 Balance 3231 2197 -395 4338 Weight 53.524 kg Lab Results: Accuchecks Date 04/01/18 Date 03/31/18 Date 03/31/18 Date 03/31/18 Time 07:22 Time 21:30 Time 01:37 Time 12:03 Accucheck Value: 191 Accucheck Value: 131 Accucheck Value: 98 Lab Results-Last 24 Hours 03/28/18 03/31/18 03/31/18 Range/Units 20:38 08:45 08:45 WBC 25.8 H* (4.0-10.5) K/mm3 RBC 4.01 L (4.1-5.4) M/mm3 Hgb 11.6 L (12.0-16.0) gm/dl Hct 33.6 L (35-47) % MCV 83.8 (78-100) fl MCH 28.9 (26-32) pg MCHC 34.5 (32-36) g/dl RDW 16.4 H (11.5-14.0) % Plt Count 132 L (150-450) K/mm3 MPV 10.8 H (6-9.5) fl Gran % 92.2 H (36.0-66.0) % Eos # (Auto) 0.01 (0-0.5) Absolute Lymphs (auto) 1.26 (1.0-4.6) Absolute Monos (auto) 0.74 (0.0-1.3) Lymphocytes % 4.9 L (24.0-44.0) % Monocytes % 2.9 (0.0-12.0) % Eosinophils % 0.0 (0.00-5.0) % Basophils % 0.0 (0.0-0.4) % Absolute Granulocytes 23.77 H (1.4-6.9) Segmented Neutrophils 92 H (36.0-66.0) % Band Neutrophils 4 H (0.0-2.0) % Lymphocytes (Manual) 1 L (24-44) % Monocytes (Manual) 3 (0.0-12.0) % Basophils # 0.01 (0-0.4) Platelet Estimate (NORMAL) RBC Morphology Sodium 133 L (137-145) mmol/L Potassium 3.0 L (3.5-5.1) mmol/L Chloride 105 (98-107) mmol/L Carbon Dioxide 16 L (22-30) mmol/L Anion Gap 15.4 H (5-15) MEQ/L BUN 50 H (7-17) mg/dL Creatinine 2.30 H (0.52-1.04) mg/dL Estimated GFR 21.5 ML/MIN Glucose 119 H (74-106) mg/dL Calcium 8.9 (8.4-10.2) mg/dL Total Bilirubin 0.60 (0.2-1.3) mg/dL AST 22 (14-36) U/L ALT 17 (0-35) U/L Alkaline Phosphatase 80 (38-126) U/L Serum Total Protein 5.7 L (6.3-8.2) g/dL Albumin 2.8 L (3.5-5.0) g/dL Vit D 1,25-Dihydroxy 8.8 L (26.1-95.0) pg/mL PTH Related Protein Pending 03/31/18 04/01/18 04/01/18 Range/Units 17:00 05:20 05:20 WBC 21.4 H (4.0-10.5) K/mm3 RBC 4.02 L (4.1-5.4) M/mm3 Hgb 11.4 L (12.0-16.0) gm/dl Hct 33.8 L (35-47) % MCV 84.1 (78-100) fl MCH 28.3 (26-32) pg MCHC 33.7 (32-36) g/dl RDW 16.5 H (11.5-14.0) % Plt Count 142 L (150-450) K/mm3 MPV 11.4 H (6-9.5) fl Gran % (36.0-66.0) % Eos # (Auto) (0-0.5) Absolute Lymphs (auto) (1.0-4.6) Absolute Monos (auto) (0.0-1.3) Lymphocytes % (24.0-44.0) % Monocytes % (0.0-12.0) % Eosinophils % (0.00-5.0) % Basophils % (0.0-0.4) % Absolute Granulocytes 19.17 H (1.4-6.9) Segmented Neutrophils 87 H (36.0-66.0) % Band Neutrophils 2 (0.0-2.0) % Lymphocytes (Manual) 7 L (24-44) % Monocytes (Manual) 4 (0.0-12.0) % Basophils # (0-0.4) Platelet Estimate DECREASED (NORMAL) RBC Morphology NORMAL Sodium 132 L (137-145) mmol/L Potassium 3.5 2.8 L* (3.5-5.1) mmol/L Chloride 104 (98-107) mmol/L Carbon Dioxide 14 L* (22-30) mmol/L Anion Gap 15.8 H (5-15) MEQ/L BUN 49 H (7-17) mg/dL Creatinine 2.48 H (0.52-1.04) mg/dL Estimated GFR 19.7 ML/MIN Glucose 168 H (74-106) mg/dL Calcium 9.5 (8.4-10.2) mg/dL Total Bilirubin 0.70 (0.2-1.3) mg/dL AST 15 (14-36) U/L ALT 15 (0-35) U/L Alkaline Phosphatase 88 (38-126) U/L Serum Total Protein 5.6 L (6.3-8.2) g/dL Albumin 2.7 L (3.5-5.0) g/dL Vit D 1,25-Dihydroxy (26.1-95.0) pg/mL PTH Related Protein Multi-Disciplinary Progress Notes: Multi-Disciplinary Progress Notes 03/31/18 11:00 (created 03/31/18 13:47) Case Management Note by Meli Meyers VISITED WITH PT AND SON AT BEDSIDE. REVIEWED DISCHARGE NEEDS. SON REPORTS THAT THEIR PLAN IS FOR PT TO RETURN TO [facility] ON DISCHARGE. DENIES ADDNL NEEDS AT PRESENT. WILL CONTINUE TO FOLLOW FOR ALL DC NEEDS. Initialized on 03/31/18 13:47 - END OF NOTE Assessment/Plan (1) Atrial fibrillation with RVR Current Visit: Yes Status: Acute Assessment & Plan: improving after 5 mg iv lopressor repeat prn if bp allows replace k check mag check abg and lactic acid with low CO2 renal function stabilizing the uti and sepsis improving on the zosyn no fever slow improvement in wbc today prognosis remains very poor given slow response to treatment and co morbid conditions Code(s): I48.91 - UNSPECIFIED ATRIAL FIBRILLATION (2) Sepsis Current Visit: Yes Status: Acute (3) Acute metabolic encephalopathy Current Visit: Yes Status: Acute Code(s): G93.41 - METABOLIC ENCEPHALOPATHY (4) Jhnwq-no-jccgqmn kidney injury Current Visit: Yes Status: Acute Code(s): N17.9 - ACUTE KIDNEY FAILURE, UNSPECIFIED; N18.9 - CHRONIC KIDNEY DISEASE, UNSPECIFIED (5) Hypercalcemia Current Visit: Yes Status: Resolved Code(s): E83.52 - HYPERCALCEMIA (6) UTI (urinary tract infection) Current Visit: Yes Status: Acute Qualifiers: Urinary tract infection type: site unspecified Hematuria presence: without hematuria Qualified Code(s): N39.0 - Urinary tract infection, site not specified Code(s): N39.0 - URINARY TRACT INFECTION, SITE NOT SPECIFIED (7) Essential hypertension Current Visit: Yes Status: Chronic Code(s): I10 - ESSENTIAL (PRIMARY) HYPERTENSION (8) Hyperparathyroidism Current Visit: Yes Status: Acute Code(s): E21.3 - HYPERPARATHYROIDISM, UNSPECIFIED
[2018-04-01 08:32] LABS: A-aADO2 96; ABG HEMOGLOBIN 11.2; ABG POTASSIUM 3.1 (3.5-5.1); ARTERIAL BLD GAS O2 SATURATION 98.6 % (95-100); ARTERIAL BLOOD GAS BASE EXCESS -8.3 (-2.0-2.0); ARTERIAL BLOOD GAS FIO2 28 %; ARTERIAL BLOOD GAS PO2 80 mmHg (75-100); ARTERIAL BLOOD GAS pH 7.46 (7.35-7.45); CARBOXYHEMOGLOBIN 1.9 % THgb (0.0-6.9); HCO3- 13.5 (22-28); HGB O2 SAT 95.4 g/dF (94-100); Methhemoglobin 1.3 % (1.4-1.5); paO2 pAO1 0.45
[2018-04-01 08:33] LABS: ABG SITE LEFT RADIAL; ARTERIAL BLOOD GAS PCO2 19 mmHg (35-45)
[2018-04-01] MEDS: Magnesium 1 Gm / 100 Ml D5W*** 100 ML IV SCH ×2 (09:32→10:05)
[2018-04-01] MEDS: ENOXAPARIN SODIUM SQ SCH (09:32)
[2018-04-01] MEDS: Miralax Powder 17GM PACKET PO SCH (09:33)
[2018-04-01] MEDS: NovoLOG Insulin SQ PRN ×3 (12:34→21:56)
[2018-04-02] MEDS: Zosyn 2.25 GM 2.25 GM in D5w 100ML Mini Bag 100 ML 100 ML IV SCH ×3 (05:22→21:17)
[2018-04-02 05:41] LABS: Granulocyte Absolute (ANC) 16.88 (1.4-6.9); Hematocrit 31.6 % (35-47); Hemoglobin 10.7 gm/dl (12.0-16.0); Mean Corpuscular Hgb Concent. 33.9 g/dl (32-36); Mean Platelet Volume 10.6 fl (6-9.5); Platelet Count 127 K/mm3 (150-450); Red Blood Count 3.76 M/mm3 (4.1-5.4); Red Cell Distribution Width 16.7 % (11.5-14.0); White Blood Count 19.4 K/mm3 (4.0-10.5)
[2018-04-02 05:48] LABS: Mean Corpuscular Hemoglobin 28.4 pg (26-32)
[2018-04-02 05:54] LABS: ALBUMIN 2.3 g/dL (3.5-5.0); ANION GAP 10.5 MEQ/L (5-15); BILIRUBIN,TOTAL 0.6 mg/dL (0.2-1.3); Calcium 9.3 mg/dL (8.4-10.2); Creatinine 1 2.13 mg/dL (0.52-1.04)
[2018-04-02 07:20] LABS: Eosinophil 2 % (0.00-3.0); Lymphocytes 10 % (24-44); Monocyte 2 % (0.0-12.0); Neutrophils 86 % (36.0-66.0); Platelet Estimate NORMAL (NORMAL); Total Cells Counted 100; Toxic Granulation 1+
[2018-04-02 07:21] LABS: ANISOCYTOSIS 1+; Poikilocytosis 1+
[2018-04-02] MEDS: NovoLOG Insulin SQ PRN ×3 (07:39→21:17)
[2018-04-02] MEDS: D5w/0.45NS W/ 40MEQ KCl 1000 Ml 1,000 ML IV SCH ×2 (07:39→23:56)
[2018-04-02] MEDS: ENOXAPARIN SODIUM SQ SCH (08:49)
[2018-04-02] MEDS: Miralax Powder 17GM PACKET PO SCH (08:49)
[2018-04-02] MEDS: Dulcolax 10 MG SUPP PR PRN (08:53)
[2018-04-02] MEDS: MORPHINE SULFATE 2 MG INJ IV PRN ×4 (09:00→23:50)
--- NOTE | 2018-04-02 12:15 | PCM.NOTE ---
Date and Time: 04/02/18 1212 Subjective Assessment: she was able to sit up in the chair yesterday for about 5 hours and was not able to assist with her transfer she then slept all night and did not require any pain medication she is a little more alert this am she has tried a few bites of pudding but was coughing with this. When asked if she is in pain she states "not yet". no bm since her first day of hospitalization Objective Exam General Appearance: no apparent distress, alert Neurologic Exam: alert, oriented x 3, cooperative, normal mood/affect, nml cerebellar function, sensation nml, No motor deficits Skin Exam: normal color, warm, dry Eye Exam: PERRL, EOMI, eyes nml inspection Ears, Nose, Throat Exam: normal ENT inspection, pharynx normal, moist mucous membranes Neck Exam: normal inspection, non-tender, supple, full range of motion Respiratory Exam: normal breath sounds, lungs clear, No respiratory distress Cardiovascular Exam: tachycardia Gastrointestinal/Abdomen Exam: soft, No tenderness, No mass Extremity Exam: normal inspection, normal range of motion Back Exam: normal inspection, normal range of motion, No CVA tenderness, No vertebral tenderness Pelvic Exam: deferred Rectal Exam: deferred OBJECTIVE DATA Vital Signs: Vital Signs - 24 hr Temp Pulse Resp BP Pulse Ox 04/02/18 07:42 16 04/02/18 07:14 98.3 F 101 H 18 138/66 94 L 04/02/18 04:00 97.9 F 107 H 21 141/67 97 04/02/18 00:00 97.9 F 110 H 15 143/77 94 L 04/01/18 20:00 99.1 F 104 H 16 135/74 94 L 04/01/18 19:00 93 L 04/01/18 16:00 16 04/01/18 15:44 98.4 F 94 H 16 128/64 95 Pain Assessment - Last Documented Pain Intensity 5 Pain Scale Used 0-10 Pain Scale Intake and Output: Intake & Output 03/31/18 04/01/18 04/02/18 04/03/18 11:59 11:59 11:59 11:59 Intake Total 280 5591 2916 Output Total 679 4435 1600 Balance -395 4338 1316 Weight 53.524 kg Lab Results: Accuchecks Date 04/02/18 Date 04/02/18 Date 04/01/18 Date 04/01/18 Time 11:46 Time 07:42 Time 21:30 Time 16:25 Accucheck Value: 270 Accucheck Value: 247 Accucheck Value: 307 Accucheck Value: 247 Lab Results-Last 24 Hours 03/31/18 04/01/18 04/02/18 Range/Units 08:45 14:43 05:25 WBC (4.0-10.5) K/mm3 RBC (4.1-5.4) M/mm3 Hgb (12.0-16.0) gm/dl Hct (35-47) % MCV (78-100) fl MCH (26-32) pg MCHC (32-36) g/dl RDW (11.5-14.0) % Plt Count (150-450) K/mm3 MPV (6-9.5) fl Absolute Granulocytes (1.4-6.9) Segmented Neutrophils (36.0-66.0) % Lymphocytes (Manual) (24-44) % Monocytes (Manual) (0.0-12.0) % Eosinophils (Manual) (0.00-3.0) % Toxic Granulation Platelet Estimate (NORMAL) RBC Morphology Poikilocytosis Anisocytosis Peripher Smr Path Cons See Result Note: Sodium (137-145) mmol/L Potassium 3.6 (3.5-5.1) mmol/L Chloride (98-107) mmol/L Carbon Dioxide (22-30) mmol/L Anion Gap (5-15) MEQ/L BUN (7-17) mg/dL Creatinine (0.52-1.04) mg/dL Estimated GFR ML/MIN Glucose (74-106) mg/dL Calcium (8.4-10.2) mg/dL Magnesium 1.9 (1.6-2.3) mg/dL Total Bilirubin (0.2-1.3) mg/dL AST (14-36) U/L ALT (0-35) U/L Alkaline Phosphatase (38-126) U/L Serum Total Protein (6.3-8.2) g/dL Albumin (3.5-5.0) g/dL 04/02/18 04/02/18 Range/Units 05:25 05:25 WBC 19.4 H (4.0-10.5) K/mm3 RBC 3.76 L (4.1-5.4) M/mm3 Hgb 10.7 L (12.0-16.0) gm/dl Hct 31.6 L (35-47) % MCV 84.0 (78-100) fl MCH 28.4 (26-32) pg MCHC 33.9 (32-36) g/dl RDW 16.7 H (11.5-14.0) % Plt Count 127 L (150-450) K/mm3 MPV 10.6 H (6-9.5) fl Absolute Granulocytes 16.88 H (1.4-6.9) Segmented Neutrophils 86 H (36.0-66.0) % Lymphocytes (Manual) 10 L (24-44) % Monocytes (Manual) 2 (0.0-12.0) % Eosinophils (Manual) 2 (0.00-3.0) % Toxic Granulation 1+ Platelet Estimate NORMAL (NORMAL) RBC Morphology ABNORMAL Poikilocytosis 1+ Anisocytosis 1+ Peripher Smr Path Cons Sodium 130 L (137-145) mmol/L Potassium 4.0 (3.5-5.1) mmol/L Chloride 107 (98-107) mmol/L Carbon Dioxide 17 L (22-30) mmol/L Anion Gap 10.5 (5-15) MEQ/L BUN 44 H (7-17) mg/dL Creatinine 2.13 H (0.52-1.04) mg/dL Estimated GFR 23.5 ML/MIN Glucose 247 H (74-106) mg/dL Calcium 9.3 (8.4-10.2) mg/dL Magnesium (1.6-2.3) mg/dL Total Bilirubin 0.60 (0.2-1.3) mg/dL AST 13 L (14-36) U/L ALT 14 (0-35) U/L Alkaline Phosphatase 92 (38-126) U/L Serum Total Protein 5.0 L (6.3-8.2) g/dL Albumin 2.3 L (3.5-5.0) g/dL Assessment/Plan (1) Sepsis Current Visit: Yes Status: Acute Onset Date: ~03/28/18 Assessment & Plan: slowly improving still with almost no po intake will work with speech therapy today continue zosyn and hydration hope for back to [facility] tomorrow if continues to improve add suppository for the constipation (2) Acute metabolic encephalopathy Current Visit: Yes Status: Acute Onset Date: ~03/28/18 Code(s): G93.41 - METABOLIC ENCEPHALOPATHY (3) [id number] kidney injury Current Visit: Yes Status: Acute Onset Date: ~03/28/18 Code(s): N17.9 - ACUTE KIDNEY FAILURE, UNSPECIFIED; N18.9 - CHRONIC KIDNEY DISEASE, UNSPECIFIED (4) Hypercalcemia Current Visit: Yes Status: Resolved Onset Date: ~03/28/18 Code(s): E83.52 - HYPERCALCEMIA (5) UTI (urinary tract infection) Current Visit: Yes Status: Acute Onset Date: ~03/28/18 Qualifiers: Urinary tract infection type: site unspecified Hematuria presence: without hematuria Qualified Code(s): N39.0 - Urinary tract infection, site not specified Code(s): N39.0 - URINARY TRACT INFECTION, SITE NOT SPECIFIED (6) Essential hypertension Current Visit: Yes Status: Chronic Onset Date: ~03/28/18 Code(s): I10 - ESSENTIAL (PRIMARY) HYPERTENSION (7) Hyperparathyroidism Current Visit: Yes Status: Acute Onset Date: ~03/28/18 Code(s): E21.3 - HYPERPARATHYROIDISM, UNSPECIFIED (8) Atrial fibrillation with RVR Current Visit: Yes Status: Resolved Onset Date: ~04/01/18 Assessment & Plan: spontaneously converted after correction of electrolyte abnormalities and 1 dose of metoprolol Code(s): I48.91 - UNSPECIFIED ATRIAL FIBRILLATION
[2018-04-02 15:52] LABS: Parathyroid Hormone-related Pr 3.3 pmol/L (0.0-3.4)
[2018-04-03] MEDS: Zosyn 2.25 GM 2.25 GM in D5w 100ML Mini Bag 100 ML 100 ML IV SCH (05:06)
[2018-04-03] MEDS: NovoLOG Insulin SQ PRN ×2 (07:43→11:43)
--- NOTE | 2018-04-03 07:56 | PCM.DS ---
Discharge Summary Date of Admission: 03/28/18 10:55 Date of Discharge: 04/03/2018 Admitting Physician: ZOEY LUNA Primary Care Provider: OVERLAND PARKBreanna BETHEA Allergies Allergies No Known Drug Allergies Allergy (Verified 03/28/18 09:17) Hospital Summary - Hospital Course Hospital Course: Ms. Morataya is a resident at [facility] since her hip fracture treated at [facility] followed by inpatient rehab that was compounded by her severe worsening dementia that has accelerated since the fracture. She was not eating or drinking much during the stay but was noted to be in significantly more pain and then became less responsive. She was found to have elevated wbc and severely elevated symptomatic hypercalcemia. She was treated with iv hydration and calcitonin X 2 with improvement in the hypercalcemia. Her symptoms remained vague and diffuse in nature. she remained afebrile. She initially was not taking anything po. The day prior to discharge she began taking small amounts of po and had speach therapy evaluatoin on the day of discharge and was doing better with improved cognitions. She was treated with zosyn and vancomycin initially. the vancomycin was d/c after initial dose as blood cultures remained negative she was afebrile and no other source except the uti was found and it was gram negative and tracey sensitive. She had acute on chronic kidney failure with severely reduced creatinine clearence which improved to her baseline creatinine of around 2 by the time of discharge. She had some difficulty with hypokalemia that precipitated an episode of atrial fibrillation with rvr that responded to one time 5mg iv metoprolol dose and correction of electrolyte abnormality with spontaneous conversion after about 2 hours. She had very slow response to therapy. and wbc was slowly improving but no focal symptoms ever emerged and her symptomsa ll continued to slowly improve. She was discharged back to [facility] to finish the coarse of antibiotics and f/u lab work on 04/08. If fevers or new symptoms further evaluation should be obtained. She only had 1 bm on day of presentation and was having laxative restarted day prior to discharge. 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 she had no pain in the hip that was replaced with rotation of the hip or palpation to suggest any infection in this region. with her poor po intake and renal failure and A1c of 6.9 her glipizide will be stopped as well and monitor sugar. - Vitals & Intake/Output Vital Signs: Vital Signs Temperature 99.1 F 04/03/18 04:00 Pulse Rate 102 H 04/03/18 04:00 Respiratory Rate 16 04/03/18 04:00 Blood Pressure 129/67 04/03/18 04:00 O2 Sat by Pulse Oximetry 96 04/03/18 04:00 Oxygen-Last Documented O2 Percentage 2 Liters = 28% Intake & Output: Intake & Output 03/31/18 04/01/18 04/02/18 04/03/18 11:59 11:59 11:59 11:59 Intake Total 280 6563 2916 1798 Output Total 675 2225 1600 1385 Balance -395 4338 1316 413 Weight 53.524 kg - Lab Result Diagrams: 04/03/18 08:05 04/03/18 08:05 Lab Results-Last 24 Hrs: Accuchecks Date 04/03/18 Date 04/02/18 Date 04/02/18 Date 04/02/18 Time 07:45 Time 16:08 Time 16:08 Time 11:46 Accucheck Value: 252 Accucheck Value: 263 Accucheck Value: 193 Accucheck Value: 270 Lab Results-Last 24 Hours 03/28/18 03/31/18 Range/Units 20:38 08:45 Peripher Smr Path Cons See Result Note: PTH Related Protein 3.3 (0.0-3.4) pmol/L Micro Results-Entire Visit: Microbiology 03/28/18 08:49 Blood Culture Gram Stain - Final Blood Not Reportable Blood Culture - Final NO GROWTH 03/28/18 08:45 Blood Culture Gram Stain - Final Blood Not Reportable Blood Culture - Final NO GROWTH 03/28/18 08:45 Urine Culture - Final Catherized Escherichia Coli Accuchecks Date 04/03/18 Date 04/02/18 Date 04/02/18 Date 04/02/18 Time 07:45 Time 16:08 Time 16:08 Time 11:46 Accucheck Value: 252 Accucheck Value: 263 Accucheck Value: 193 Accucheck Value: 270 - Radiology Exams Ordered Rad Exams-Entire Visit: Radiology Procedures Category Date Time Status MODIFIED BARIUM SWALLOW EXAM Routine Exams 04/03/18 08:00 Ordered - Procedures and Test Procedures and Tests throughout Hospitalization: Therapy Orders & Screens 03/28/18 10:13 Oxygen NASAL CANNULA 2 lpm Comment: 03/28/18 16:11 EKG ROUTINE Comment: Diagnosis: UTI 03/29/18 05:00 EKG ROUTINE Comment: Diagnosis: UTI 04/02/18 08:29 Speech Therapy Eval & Treat [ST Eval & Treat ( Order)] .as ordered Comment: Physician Instructions: Reason For Exam: Evaluate: Yes Treat: Yes Reason for Eval: difficulty swallowing Diagnosis: UTI 04/02/18 17:13 Modified Barium Swallow Eval .as ordered Comment: Physician Instructions: Reason For Exam: Discharge Exam General Appearance: no apparent distress Neurologic Exam: alert, cooperative, other (slow movements and slow speech follows commands moves all extremities), No oriented x 3 Skin Exam: warm, dry Eye Exam: EOMI, pale conjunctivae, No scleral icterus Ears, Nose, Throat Exam: dry mucous membranes Neck Exam: non-tender, supple Respiratory Exam: normal breath sounds Cardiovascular Exam: regular rate/rhythm, edema (1+ jaime LE) Gastrointestinal/Abdomen Exam: soft, normal bowel sounds, No tenderness, No distention, No guarding, No ecchymosis Extremity Exam: normal inspection, normal range of motion, pedal edema, No calf tenderness Back Exam: normal inspection, No vertebral tenderness Final Diagnosis/Problem List - Final Discharge Diagnosis/Problem (1) Sepsis Status: Acute Onset Date: ~03/28/18 (2) Acute metabolic encephalopathy Status: Acute Onset Date: ~03/28/18 (3) [id number] kidney injury Status: Acute Onset Date: ~03/28/18 (4) Hypercalcemia Status: Resolved Onset Date: ~03/28/18 (5) UTI (urinary tract infection) Status: Acute Onset Date: ~03/28/18 (6) Essential hypertension Status: Chronic Onset Date: ~03/28/18 (7) Hyperparathyroidism Status: Acute Onset Date: ~03/28/18 (8) Atrial fibrillation with RVR Status: Resolved Onset Date: ~04/01/18 - Discharge Discharge Date: 04/03/18 Disposition: DC TO [facility] Condition: Fair Prescriptions: New Bisacodyl 10 mg [Dulcolax 10 MG SUPP] 10 mg RI QDP PRN supp.rect PRN Reason: Constipation Cephalexin Mh 500 mg [Keflex 500 mg] 500 mg PO BID 7 Days #14 capsule Continue Sennosides/Docusate Sodium [Stool Softener-Stim Lax Tablet] 1 each PO BID PRN PRN Reason: Constipation Calcium Carbonate/Vitamin D3 [Oystercal-D 500 mg-400 Unit Tb] 2 tab PO DAILY Polyethylene Glycol 3350 [Glycolax] 17 gm PO DAILY Hydrocodone Bit/Acetaminophen [[place] 5-325 Tablet] 1 each PO Q6HPRN PRN PRN Reason: Pain Glucagon,Human Recombinant [Glucagon Emergency Kit] 1 mg IM QID PRN PRN Reason: Hypoglycemia Polyvinyl Alcohol [Artificial Tears] 15 ml OP Q4H PRN PRN Reason: Anxiety Acetaminophen 325 mg [Tylenol 325 mg] 650 mg PO Q4H PRN PRN Reason: Pain Magnesium Hydroxide [Milk of Magnesia] 30 ml PO DAILY PRN PRN Reason: Constipation Discontinued Triamterene/Hydrochlorothiazid [Triamterene-Hctz 37.5-25 mg Tb] 1 tab PO DAILY Cholecalciferol (Vitamin D3) [Vitamin D] 1,000 unit PO DAILY Glipizide 5 mg [Glucotrol 5 MG] 5 mg PO DAILY Instructions: Sepsis in Adults Additional Instructions: CBC and BMP on Friday, April 07 at [facility]. Follow up with: RACHELLE BETHEA [Primary Care Provider] - 1 Week
[2018-04-03] MEDS: Miralax Powder 17GM PACKET PO SCH (08:10)
[2018-04-03] MEDS: Dulcolax 10 MG SUPP PR PRN (08:12)
[2018-04-03 08:23] LABS: BASOPHIL % 0.1 % (0.0-0.4); Basophil (Absolute #) 0.01 (0-0.4); Eosinophil % 2.1 % (0.00-5.0); Eosinophil (Absolute #) 0.42 (0-0.5); Granulocyte Absolute (ANC) 16.56 (1.4-6.9); Granulocytes % 84.7 % (36.0-66.0); Hematocrit 30.8 % (35-47); Hemoglobin 10.4 gm/dl (12.0-16.0); Lymphocyte (Absolute #) 1.38 (1.0-4.6); Lymphocytes % 7.1 % (24.0-44.0); Mean Cell Volume 85.1 fl (78-100); Mean Corpuscular Hemoglobin 28.7 pg (26-32); Mean Corpuscular Hgb Concent. 33.8 g/dl (32-36); Mean Platelet Volume 10.9 fl (6-9.5); Monocyte (Absolute #) 1.17 (0.0-1.3); Platelet Count 136 K/mm3 (150-450); Red Blood Count 3.62 M/mm3 (4.1-5.4); Red Cell Distribution Width 16.8 % (11.5-14.0); White Blood Count 19.5 K/mm3 (4.0-10.5)
[2018-04-03] MEDS: MORPHINE SULFATE 2 MG INJ IV PRN (08:36)
[2018-04-03 08:43] LABS: ALBUMIN 2.3 g/dL (3.5-5.0); ANION GAP 10.7 MEQ/L (5-15); BILIRUBIN,TOTAL 0.6 mg/dL (0.2-1.3); Calcium 9.3 mg/dL (8.4-10.2); Creatinine 1 1.89 mg/dL (0.52-1.04); Potassium 4.2 mmol/L (3.5-5.1); Total Protein 4.8 g/dL (6.3-8.2)
[2018-04-03] MEDS: ENOXAPARIN SODIUM SQ SCH (09:10)
[2018-04-03 09:12] LABS: BAND 5 % (0.0-2.0); Lymphocytes 6 % (24-44); Monocyte 4 % (0.0-12.0); Neutrophils 85 % (36.0-66.0); Total Cells Counted 100
[2018-04-03 09:14] LABS: ANISOCYTOSIS 1+; Platelet Estimate NORMAL (NORMAL); Poikilocytosis 1+
[2018-04-03 11:51] VITALS: BP 133/55; PULSE 105; O2SAT 95
--- NOTE | 2018-04-03 12:08 | XRAY ---
Indication: Difficulty swallowing. Modified barium swallow study was performed by the department of speech therapy with fluoroscopic assistance provided. Patient ingested multiple consistencies of liquids and solid. Full report and recommendations will be reported separately. Approximately 1.7 minute fluoroscopy used.
== END 2018-04-03 13:15 | DRG 871 ==
LOC: ED 07:57 → ICU 10:55 → MED SURG 03-30 09:48
PROVIDERS: ADMIT Family Medicine; ATTEND Family Medicine
DX: A41.9 Sepsis, unspecified organism (principal); G93.41 Metabolic encephalopathy; E86.0 Dehydration; N17.9 Acute kidney failure, unspecified; N18.9 Chronic kidney disease, unspecified; R79.89 Other specified abnormal findings of blood chemistry; I12.9 Hypertensive chronic kidney disease with stage 1 through stage 4 chronic kidney disease, or unspecified chronic kidney disease; E21.3 Hyperparathyroidism, unspecified; I48.91 Unspecified atrial fibrillation; F41.9 Anxiety disorder, unspecified; E83.52 Hypercalcemia; Z86.73 Personal history of transient ischemic attack (TIA), and cerebral infarction without residual deficits; N39.0 Urinary tract infection, site not specified; R41.82 Altered mental status, unspecified; L89.621 Pressure ulcer of left heel, stage 1; L89.152 Pressure ulcer of sacral region, stage 2; F03.90 Unspecified dementia, unspecified severity, without behavioral disturbance, psychotic disturbance, mood disturbance, and anxiety; E78.00 Pure hypercholesterolemia, unspecified; I10 Essential (primary) hypertension; E11.9 Type 2 diabetes mellitus without complications; Z79.899 Other long term (current) drug therapy
CPT/HCPCS: 36415; 36600; 51702; 70450; 71045; 74176; 74230; 80048; 80053; 80202; 80307; 81000; 82306; 82375; 82542; 82550; 82652; 82803; 82962; 83036; 83605; 83735; 83880; 83970; 84100; 84132; 84134; 84484; 85025; 85060; 85610; 87040; 87077; 87086; 87186; 93005; 93041; 94760; 96360; 96365; 96367; 96372; 99285; J0360; J0630; J0696; J1650; J1940; J2270; J2430; J2543; J3370; J3475; J3480; A9270-GY

== ENCOUNTER 2018-04-20 13:27 | Inpatient (IN) | payer MEDICARE, OTHER ==
--- NOTE | 2018-04-20 13:46 | ERPHSYRPT ---
- History of Present Illness Time Seen by Provider: 04/20/18 13:41 Source: EMS, residential records, other (physician) Exam Limitations: other (dementia) Physician History: The patient is a 82-year-old female transported by ambulance from a local residential [facility] for abnormal labs and decreased level of mentation. I spoke with the doctor at the residential, Dr. aMrkie Saldana, and he has not seen her for several days. When Dr Lucia last saw pt, she was talking. Pt has had no BM for a week. These were routine laboratories that were drawn earlier this morning. He sees that they are very abnormal and would like someone to clinically evaluate her. He states that she has dementia. The family wants her to BE a full code. About 2 weeks ago she was in the hospital here for sepsis and had critical values at that time with a calcium level per Dr. Saldana of 15. It improved. She went back to the residential but was never her normal self. She has now become worse. Some of abnormal lab values obtained earlier this morning are as follows: White count 17.8, glucose 275, 107, creatinine 2.62, sodium 154, and calcium 12.3. She has a past medical history of Alzheimer's dementia, hypercalcemia, A. fib, and hypertension. Timing/Duration: today Severity: severe Associated Symptoms: weakness, other (altered mental status) Allergies/Adverse Reactions: No Known Drug Allergies Allergy (Verified 03/28/18 09:17) Home Medications: Acetaminophen 325 mg [Tylenol 325 mg] 650 mg PO Q4H PRN 03/28/18 [History] Calcium Carbonate/Vitamin D3 [Oystercal-D 500 mg-400 Unit Tb] 2 tab PO DAILY [History] Glucagon,Human Recombinant [Glucagon Emergency Kit] 1 mg IM QID PRN 03/28/18 [ History] Hydrocodone Bit/Acetaminophen [[place] 5-325 Tablet] 1 each PO Q6HPRN PRN [History] Magnesium Hydroxide [Milk of Magnesia] 30 ml PO DAILY PRN 03/28/18 [History] Polyethylene Glycol 3350 [Glycolax] 17 gm PO DAILY 03/28/18 [History] Polyvinyl Alcohol [Artificial Tears] 15 ml OP Q4H PRN 03/28/18 [History] Sennosides/Docusate Sodium [Stool Softener-Stim Lax Tablet] 1 each PO BID PRN [History] Hx Tetanus, Diphtheria Vaccination/Date Given: No Hx Influenza Vaccination/Date Given: Yes (2013) Hx Pneumococcal Vaccination/Date Given: No - Review of Systems Constitutional: Malaise, Weakness Eyes: No Symptoms Ears, Nose, & Throat: No Symptoms Respiratory: No Cough, No Dyspnea Cardiac: No Chest Pain, No Edema, No Syncope Abdominal/Gastrointestinal: No Abdominal Pain, No Nausea, No Vomiting, No Diarrhea Genitourinary Symptoms: No Dysuria Musculoskeletal: No Back Pain, No Neck Pain Skin: No Rash Neurological: Lethargy, Speech Changes Psychological: No Symptoms Endocrine: No Symptoms Hematologic/Lymphatic: No Symptoms Immunological/Allergic: No Symptoms All Other Systems: Reviewed and Negative - Past Medical History Pertinent Past Medical History: Yes Neurological History: Stroke Cardiac History: High Cholesterol, Hypertension Endocrine Medical History: Diabetes Type II History: Renal Disease - Past Surgical History Past Surgical History: Yes Musculoskeletal: Orthopedic Surgery Female Surgical History: Hysterectomy, Lumpectomy - Social History Smoking Status: Never smoker Exposure to second hand smoke: No Drug Use: none Patient Lives Alone: No - Nursing Vital Signs Nursing Vital Signs: Initial Vital Signs Temperature 97.0 F 04/20/18 14:19 - Physical Exam General Appearance: moderate distress, thin Eye Exam: PERRL/EOMI, eyes nml inspection Ears, Nose, Throat Exam: dry mucous membranes Neck Exam: normal inspection, non-tender, supple, full range of motion Respiratory Exam: normal breath sounds, lungs clear, No respiratory distress Cardiovascular Exam: regular rate/rhythm, normal heart sounds, normal peripheral pulses Gastrointestinal/Abdomen Exam: soft, normal bowel sounds, tenderness (apparent tenderness to suprapubic area. ), mass (large mass/swelling over suprapubic area.) Pelvic Exam: not done Back Exam: normal inspection, normal range of motion, No CVA tenderness, No vertebral tenderness Extremity Exam: normal inspection, normal range of motion, pelvis stable Neurologic Exam: other (Pt opens eyes spontaneously, moves extremities, moans but does not talk.) Skin Exam: normal color, warm, dry, No rash Lymphatic Exam: No adenopathy SpO2 Interpretation: normal Oxygen Delivery: Room Air - Course EKG Interpreted by Me: RATE, Sinus Rhythm, NORMAL AXIS, NORMAL INTERVALS - CT Exams Head CT Interpretation: Negative, Tele-radiologist Report (per Dr Childs.), No/ Intracranial Hemorrhag Abdomen/Pelvis CT Interpretation: Negative, Tele-radiologist Report (per Dr Childs), Normal Appendix Ordered Tests: Active Orders 24 hr Category Date Time Status Catheter-Wayne Dutton STAT Care 04/20/18 13:48 Active EKG-ER Only STAT Care 04/20/18 13:48 Active IV Insertion STAT Care 04/20/18 13:48 Active Re-Check Vital Signs STAT Care 04/20/18 13:48 Active ABDOMEN AND PELVIS W/0 CONTRAS [CT] Stat Exams 04/20/18 14:06 Completed CHEST 1 VIEW (PORTABLE) Stat Exams 04/20/18 16:39 Ordered HEAD WITHOUT CONTRAST [CT] Stat Exams 04/20/18 13:50 Completed BLOOD CULTURE Stat Lab 04/20/18 14:15 Received Lactic Acid Stat Lab 04/20/18 13:57 Completed Lactic Acid Stat Lab 04/20/18 16:16 Completed Occult Blood,Stool Other Stat Lab 04/20/18 14:20 Received TROPONIN Q3H Lab 04/20/18 14:15 Completed TROPONIN Q3H Lab 04/20/18 17:00 Ordered TROPONIN Q3H Lab 04/20/18 20:00 Ordered TROPONIN Q3H Lab 04/20/18 23:00 Ordered TROPONIN Q3H Lab 04/21/18 02:00 Ordered UA W/RFX UR CULTURE Stat Lab 04/20/18 16:39 Uncollected Medication Summary Discontinued Medications Generic Name Dose Route Start Last Admin Trade Name Freq PRN Reason Stop Dose Admin Sodium Chloride 1,000 mls @ 999 mls/hr 04/20/18 13:48 04/20/18 14:48 Sodium Chloride 0.9% 1000 Ml IV 04/20/18 14:48 999 mls/hr .Q1H1M STA Administration Sodium Chloride Confirm 04/20/18 14:46 Sodium Chloride 0.9% 1000 Ml Administered 04/20/18 14:47 Dose 1,000 mls @ ud .ROUTE .STK-MED ONE Lab/Rad Data: Laboratory Results 04/20/18 04/20/18 04/20/18 Range/Units 16:16 14:15 13:57 Lactic Acid 1.8 4.0 H (0.4-2.0) Troponin I 0.042 H* (0.000-0.034) ng/mL - Progress Progress: improved Discussed with : Alverto Will see patient in: hospital (observation) Counseled pt/family regarding: lab results, diagnosis, rad results - Departure Time of Disposition: 16:42 Departure Disposition: Home Clinical Impression: Altered mental status, unspecified Condition: Stable Critical Care Time: No Referrals: RACHELLE RASMUSSEN [Primary Care Provider] -
[2018-04-20] MEDS ORDERED: Sodium Chloride 0.9% 1000 ML 1,000 ML IV STA (13:48)
[2018-04-20] MEDS ORDERED: Sodium Chloride 0.9% 1000 ML 1,000 ML ONE (14:46)
--- NOTE | 2018-04-20 14:47 | XRAY ---
Indication: Altered mental status. Multiple contiguous axial images obtained through the head without contrast as ordered. Comparison: March 28, 2018. Images through the base of the brain slightly degraded by motion artifact. Stable global atrophy and mild periventricular degenerative micro-ischemia bilaterally. No acute intracranial hemorrhage, abnormal extra-axial fluid collection, or mass effect. Bony calvarium intact again with hyperostosis frontalis interna. Visualized paranasal sinuses and mastoid air cells are clear. Impression: Motion artifact. Grossly stable nonacute senile brain. CTDI 59.80
--- NOTE | 2018-04-20 15:06 | XRAY ---
Indication: Suprapubic tenderness. Acute mental status change. Multiple contiguous axial images obtained through the abdomen and pelvis without contrast as ordered. Comparison: March 28, 2018. Study is slightly degraded by respiration artifact. Lung bases again demonstrates mild bilateral dependent atelectasis and a few calcified granulomas. No infiltrate or effusion. Heart is not enlarged. Images through the abdomen degraded by respiration artifact and beam artifact from patient's hand. Noncontrasted stomach and bowel loops appear nonobstructed. Appendix not identified. There is now mild diffuse scattered colonic fecal debris throughout. Stable descending and sigmoid diverticulosis without diverticulitis. Stable gallstones/gravel in the dependent portion. No free fluid or air. Urinary bladder mildly distended again with intraluminal air and Dutton balloon catheter. Dutton balloon tip now appears at the level of the urethra. Uterus atrophic or surgically absent. Remaining liver, pancreas, spleen, adrenal glands, kidneys, and ureters appear unremarkable for noncontrast exam. Stable heavy scattered vascular calcifications. No AAA. Osseous structures demonstrates stable osteopenia, moderate/advanced multilevel degenerative spondylosis, grade 2 L5 spondylolisthesis, and old right femur intertrochanteric fracture with partially visualized orthopedic hardware. Impression: 1. Again limited exam due to respiration and beam artifact. 2. New fecal stasis without obstruction. Stable colonic diverticulosis. 3. Stable gallstones/gravel. 4. Again Dutton catheter in situ with balloon tip now at the level of the urethra. Consider readjustment. 5. Stable osteopenia, multilevel degenerative spondylosis, and grade 2 L5 spondylolisthesis. CTDI 12.74
--- NOTE | 2018-04-20 17:02 | XRAY ---
Indication: Elevated WBC. Comparison: March 28, 2018. Portable chest unchanged again slightly underinflated with minimal bilateral subsegmental atelectasis/scarring and a few tiny calcified granulomas. Heart is not enlarged. No new/acute cardiopulmonary abnormalities. Impression: Stable nonacute underinflated chest.
[2018-04-20] MEDS ORDERED: Zofran 4 MG/2 ML VIAL IV PRN (17:46)
[2018-04-20] MEDS ORDERED: Sodium Chloride 0.9% 1000 ML 1,000 ML IV SCH (17:46)
[2018-04-20 18:17] LABS: Appearance CLOUDY (CLEAR); Bilirubin NEGATIVE (NEGATIVE); Blood 250 Ery/ul (0-5); Glucose 100 mg/dL (NEGATIVE); Ketones NEGATIVE (NEGATIVE); Leukocyte Esterase 2+ (NEGATIVE); Nitrite NEGATIVE (NEGATIVE); Protein,Urine Dip 100 (Negative); Urobilinogen NORMAL mg/dL (0-1)
[2018-04-20 18:19] LABS: RBC 25-50 /HPF (0-2); WBC 50-100 /HPF (0-5)
[2018-04-20 18:20] LABS: Bacteria FEW /HPF (NEGATIVE); Epithelial Cells RARE /HPF (FEW)
[2018-04-20] MEDS ORDERED: ROCEPHIN 1 Gm-D5w 50 ml Bag** 1 G/50 ML IVPB IV SCH (19:00)
[2018-04-20] MEDS ORDERED: Lactated Ringers 1,000 ML IV ONE (20:31)
--- NOTE | 2018-04-20 20:43 | PCM.HP ---
History of Present Illness - Chief Complaint Chief Complaint: AMS Date: 04/20/18 History of Present Illness: is a 82 year old female. who has been residing at [facility] when she was treated and released for dehydration and uti with sepsis about 17 days ago since then she has not been eating or drinking much there. [facility] has had a few good days but progressive decline in mental status with her baseline dementia after her hip fracture the reason she was admitted. She was also having uncontrolled hyperglycemia worsening her dehydration. She had been started on insulin and it was improving slowly. This am she was less responsive not eating much all weekend and routine labs showed severe dehydration with very elevated BUN with history of ckd stage 4. with the altered mental status and severe labs she was sent to ed for evaluation. There she was found to have hemoccult positive stools and evidence of UTI with elevated lactic acid. She was given 1 L of normal saline in the ED and sent to the floor. - Review of Systems Constitutional: Other (unable to obtain with her current mental status. history obtained from long-term nurses, er physician and chart review) Medications & Allergies Home Medications: Home Medication List Acetaminophen 325 mg [Tylenol 325 mg] 650 mg PO Q4H PRN 03/28/18 [History Confirmed 04/20/18] Calcium Carbonate/Vitamin D3 [Oystercal-D 500 mg-400 Unit Tb] 2 tab PO DAILY [History Confirmed 04/20/18] Glucagon,Human Recombinant [Glucagon Emergency Kit] 1 mg IM QID PRN 03/28/18 [ History Confirmed 04/20/18] Hydrocodone Bit/Acetaminophen [[place] 5-325 Tablet] 1 each PO Q6HPRN PRN [History Confirmed 04/20/18] Magnesium Hydroxide [Milk of Magnesia] 30 ml PO DAILY PRN 03/28/18 [History Confirmed 04/20/18] Polyethylene Glycol 3350 [Glycolax] 17 gm PO DAILY 03/28/18 [History Confirmed 04/20/18] Polyvinyl Alcohol [Artificial Tears] 15 ml OP Q4H PRN 03/28/18 [History Confirmed 04/20/18] Sennosides/Docusate Sodium [Stool Softener-Stim Lax Tablet] 1 each PO BID PRN [History Confirmed 04/20/18] Bisacodyl 10 mg [Dulcolax 10 MG SUPP] 10 mg OR QDP PRN supp.rect [Rx Confirmed 04/20/18] Insulin Aspart [NovoLOG Insulin] 1 unit SQ ACHS PRN 04/20/18 [History Confirmed 04/20/18] Insulin Glargine [Lantus Insulin] 15 unit SQ HS 04/20/18 [History Confirmed 04/20/18] Triamterene/Hydrochlorothiazid [Maxzide 37.5 mg-25 mg Tablet] 1 each PO DAILY [History Confirmed 04/20/18] glipiZIDE [Glipizide] 5 mg PO BID 04/20/18 [History Confirmed 04/20/18] Allergies/Adverse Reactions: Allergies Allergy/AdvReac Type Severity Reaction Status Date / Time No Known Drug Allergies Allergy Verified 03/28/18 09:17 - Past Medical History Past Medical History: Yes Neurological History: Stroke Cardiac History: High Cholesterol, Hypertension Endocrine Medical History: Diabetes Type II History: Renal Disease Comment: PT UNABLE TO ANSWER QUESTIONS AT THIS TIME. - Female History Are you now?: No - Past Surgical History Past Surgical History: Yes Musculskeletal Surgical Hx: Orthopedic Surgery Female Surgical History: Hysterectomy, Lumpectomy Other Surgical History: PT UNABLE TO ANSWER QUESTIONS AT THIS TIME. - Social History Smoking Status: Never smoker Exposure to second hand smoke: No Alcohol: None Drug Use: none - Physical Exam Vital Signs: Vital Signs - 24 hr Temp Pulse Resp BP Pulse Ox 04/20/18 19:07 99 04/20/18 18:32 96.4 F 110 H 18 130/76 96 04/20/18 18:00 96 04/20/18 17:47 104 H 20 122/86 98 04/20/18 17:25 112 H 24 120/83 98 04/20/18 17:23 106 H 24 136/82 97 04/20/18 16:58 110 H 22 162/73 98 04/20/18 15:50 110 H 22 119/79 98 04/20/18 15:00 105 H 24 140/78 97 04/20/18 14:19 97.0 F 108 H 26 H 122/78 96 General Appearance: thin, other (tracking with her eyes not following commands well will respond to voice to simple commands she is trying to spell things it seems she is repeating "b" "a" "i" "a" over and over.) Neurologic Exam: other (moving both upper and lower extremities with symmetric eye movements tracking and symmetric facial movements), No oriented x 3 Eye Exam: PERRL/EOMI, pale conjunctivae, No scleral icterus Ears, Nose, Throat Exam: dry mucous membranes Neck Exam: normal inspection, non-tender, supple Respiratory Exam: normal breath sounds, lungs clear Cardiovascular Exam: regular rate/rhythm, tachycardia (rate 110), No edema Gastrointestinal/Abdomen Exam: soft, No normal bowel sounds (hypoactive bowel sounds), No tenderness, No distention, No guarding, No ecchymosis, No rebound Pelvic Exam: other (Dutton catheter in place with 300 mL of dark yellow urine in the bag) Extremity Exam: normal inspection, No pedal edema Skin Exam: warm, dry, other (poor turgur with tenting of the skin) Results - Labs Lab/Micro Results: Lab Results-Last 24 Hours 04/20/18 04/20/18 04/20/18 Range/Units 13:57 14:15 14:20 Lactic Acid 4.0 H (0.4-2.0) Troponin I 0.042 H* (0.000-0.034) ng/mL Ur Collection Type Urine Color (YELLOW) Urine Appearance (CLEAR) Urine pH (5-6) Ur Specific [place] (1.005-1.025) Urine Protein (Negative) Urine Ketones (NEGATIVE) Urine Blood (0-5) Carter/ul Urine Nitrite (NEGATIVE) Urine Bilirubin (NEGATIVE) Urine Urobilinogen (0-1) mg/dL Ur Leukocyte Esterase (NEGATIVE) Urine Microscopic RBC (0-2) /HPF Urine Microscopic WBC (0-5) /HPF Ur Epithelial Cells (FEW) /HPF Urine Bacteria (NEGATIVE) /HPF Urine Yeast (NEGATIVE) /HPF Urine Culture Reflexed (NO) Urine Glucose (NEGATIVE) mg/dL Stool Occult Blood POSITIVE (Negative) Specimen Received 04/20/18 04/20/18 04/20/18 Range/Units 16:16 16:58 17:00 Lactic Acid 1.8 (0.4-2.0) Troponin I 0.036 H* (0.000-0.034) ng/mL Ur Collection Type CATH Urine Color YELLOW (YELLOW) Urine Appearance CLOUDY (CLEAR) Urine pH 5.0 (5-6) Ur Specific [place] 1.010 (1.005-1.025) Urine Protein 100 (Negative) Urine Ketones NEGATIVE (NEGATIVE) Urine Blood 250 (0-5) Carter/ul Urine Nitrite NEGATIVE (NEGATIVE) Urine Bilirubin NEGATIVE (NEGATIVE) Urine Urobilinogen NORMAL (0-1) mg/dL Ur Leukocyte Esterase 2+ (NEGATIVE) Urine Microscopic RBC 25-50 (0-2) /HPF Urine Microscopic WBC 50-100 (0-5) /HPF Ur Epithelial Cells RARE (FEW) /HPF Urine Bacteria FEW (NEGATIVE) /HPF Urine Yeast FEW (NEGATIVE) /HPF Urine Culture Reflexed YES (NO) Urine Glucose 100 (NEGATIVE) mg/dL Stool Occult Blood (Negative) Specimen Received 04/20/18 8940 - Radiology Impressions Radiology Exams & Impressions: Radiology Procedures Category Date Time Status ABDOMEN AND PELVIS W/0 CONTRAS [CT] Stat Exams 04/20/18 14:06 Completed CHEST 1 VIEW (PORTABLE) Stat Exams 04/20/18 16:39 Completed HEAD WITHOUT CONTRAST [CT] Stat Exams 04/20/18 13:50 Completed Assessment/Plan (1) Acute renal failure Current Visit: Yes Status: Acute Assessment & Plan: it appears she has worsening renal failure secondary to dehydration likely compounded by some degree of gi bleeding with elevated uremia and occult + stools will start protonix iv stat give rocephin 1 g iv for the UTI give additional 1L bolus of LR change iv fluids to 0.45 NaCl at 200 mL/h repeat am labs with korytes troponin is improving given her renal failure and lack of ekg changes cardiac etiology less likely she does remain full intervention further discussion will need to be had about end of life goals of therapy as she has been readmitted now 3 weeks after discharge and is not maintaining fluid and nutrient replenishment po but with her dementia and chronic kidney disease 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 (2) Uremic encephalopathy Current Visit: Yes Status: Acute Code(s): G93.41 - METABOLIC ENCEPHALOPATHY ; N19 - UNSPECIFIED KIDNEY FAILURE (3) GI bleed Current Visit: Yes Status: Acute Code(s): K92.2 - GASTROINTESTINAL HEMORRHAGE, UNSPECIFIED (4) UTI (urinary tract infection) Current Visit: Yes Status: Acute Onset Date: ~03/28/18 Qualifiers: Urinary tract infection type: site unspecified Hematuria presence: without hematuria Qualified Code(s): N39.0 - Urinary tract infection, site not specified Code(s): N39.0 - URINARY TRACT INFECTION, SITE NOT SPECIFIED (5) Hypercalcemia Current Visit: Yes Status: Acute Onset Date: ~03/28/18 Code(s): E83.52 - HYPERCALCEMIA (6) Essential hypertension Current Visit: Yes Status: Chronic Onset Date: ~03/28/18 Code(s): I10 - ESSENTIAL (PRIMARY) HYPERTENSION (7) Hyperparathyroidism Current Visit: Yes Status: Chronic Onset Date: ~03/28/18 Code(s): E21.3 - HYPERPARATHYROIDISM, UNSPECIFIED (8) Type 2 diabetes mellitus Current Visit: Yes Status: Chronic (9) Dementia Current Visit: Yes Status: Acute Code(s): F03.90 - UNSPECIFIED DEMENTIA WITHOUT BEHAVIORAL DISTURBANCE
[2018-04-20] MEDS ORDERED: NORCO 5/325 MG PO PRN (21:24)
[2018-04-20] MEDS: PROTONIX 40 MG IV IV SCH (21:24)
[2018-04-20] MEDS: Lantus Insulin SQ SCH (22:17)
[2018-04-20] MEDS: NovoLOG Insulin SQ PRN (22:18)
[2018-04-20] MEDS: MORPHINE SULFATE 2 MG INJ IV PRN (22:20)
[2018-04-21 05:34] LABS: Granulocyte Absolute (ANC) 9.31 (1.4-6.9); Hematocrit 33.9 % (35-47); Hemoglobin 10.5 gm/dl (12.0-16.0); Mean Cell Volume 93.1 fl (78-100); Mean Corpuscular Hemoglobin 28.8 pg (26-32); Mean Platelet Volume 11.3 fl (6-9.5); Platelet Count 199 K/mm3 (150-450); Red Blood Count 3.64 M/mm3 (4.1-5.4); Red Cell Distribution Width 16.4 % (11.5-14.0); White Blood Count 12.4 K/mm3 (4.0-10.5)
[2018-04-21 06:33] LABS: ANION GAP 9.6 MEQ/L (5-15); Calcium 10.6 mg/dL (8.4-10.2); Creatinine 1 1.99 mg/dL (0.52-1.04); PHOSPHOROUS 1.8 mg/dL (2.5-4.5); Potassium 3.5 mmol/L (3.5-5.1); TSH, 3RD Generation 1.51 mIU/L (0.47-4.68)
[2018-04-21] MEDS ORDERED: Artificial Tears 15 ML OP PRN (07:08)
[2018-04-21] MEDS ORDERED: Senokot-S Tablet PO PRN (07:08)
[2018-04-21] MEDS ORDERED: TYLENOL 325 MG PO PRN (07:08)
[2018-04-21] MEDS ORDERED: Dulcolax 10 MG SUPP PR PRN (07:08)
[2018-04-21 07:20] LABS: ATYPICAL LYMPHS 1 %; Lymphocytes 13 % (24-44); Neutrophils 86 % (36.0-66.0); Total Cells Counted 100
[2018-04-21 07:21] LABS: ANISOCYTOSIS 1+; Platelet Estimate NORMAL (NORMAL); Poikilocytosis RARE
--- NOTE | 2018-04-21 08:13 | PCM.NOTE ---
Date and Time: 04/21/18804 Subjective Assessment: she did sleep some last night with the morphine she moans inaudibly out and will randomly say a word but does not follow up with it or answer questions Objective Exam General Appearance: thin, other (tracking and making eye contact moaningn intermittently shakes head no to some questions but unable to answer most accuretly or consistently.) Neurologic Exam: other (moving all extremities no facial droop) Skin Exam: warm, dry, other (turgor improving) Eye Exam: pale conjunctivae, No scleral icterus Ears, Nose, Throat Exam: dry mucous membranes Respiratory Exam: normal breath sounds, lungs clear Cardiovascular Exam: regular rate/rhythm, normal heart sounds, normal peripheral pulses, No edema Gastrointestinal/Abdomen Exam: soft, normal bowel sounds, No tenderness Extremity Exam: normal inspection, No calf tenderness OBJECTIVE DATA Vital Signs: Vital Signs - 24 hr Temp Pulse Resp BP Pulse Ox 04/21/18 07:38 97.4 F 80 16 127/72 98 04/21/18 07:01 95 04/21/18 04:00 97.6 F 80 12 132/69 94 L 04/21/18 00:00 97.6 F 97 H 16 128/78 92 L 04/20/18 20:00 98.5 F 105 H 16 129/73 91 L 04/20/18 19:07 99 04/20/18 18:32 96.4 F 110 H 18 130/76 96 04/20/18 18:00 96 04/20/18 17:47 104 H 20 122/86 98 04/20/18 17:25 112 H 24 120/83 98 04/20/18 17:23 106 H 24 136/82 97 04/20/18 16:58 110 H 22 162/73 98 04/20/18 15:50 110 H 22 119/79 98 04/20/18 15:00 105 H 24 140/78 97 04/20/18 14:19 97.0 F 108 H 26 H 122/78 96 Pain Assessment - Last Documented Pain Intensity 4 Pain Scale Used [facility] Intake and Output: Intake & Output 04/18/18 04/19/18 04/20/18 04/21/18 11:59 11:59 11:59 11:59 Intake Total 2711 Output Total 575 Balance 2136 Weight 46 kg Lab Results: Accuchecks Accucheck Value: 343 Lab Results-Last 24 Hours 04/20/18 04/20/18 04/20/18 Range/Units 13:57 14:15 14:20 WBC (4.0-10.5) K/mm3 RBC (4.1-5.4) M/mm3 Hgb (12.0-16.0) gm/dl Hct (35-47) % MCV (78-100) fl MCH (26-32) pg MCHC (32-36) g/dl RDW (11.5-14.0) % Plt Count (150-450) K/mm3 MPV (6-9.5) fl Absolute Granulocytes (1.4-6.9) Segmented Neutrophils (36.0-66.0) % Lymphocytes (Manual) (24-44) % Atypical Lymphocytes % Platelet Estimate (NORMAL) RBC Morphology Poikilocytosis Anisocytosis Sodium (137-145) mmol/L Potassium (3.5-5.1) mmol/L Chloride (98-107) mmol/L Carbon Dioxide (22-30) mmol/L Anion Gap (5-15) MEQ/L BUN (7-17) mg/dL Creatinine (0.52-1.04) mg/dL Estimated GFR ML/MIN Glucose (74-106) mg/dL Lactic Acid 4.0 H (0.4-2.0) Calcium (8.4-10.2) mg/dL Phosphorus (2.5-4.5) mg/dL Magnesium (1.6-2.3) mg/dL Troponin I 0.042 H* (0.000-0.034) ng/mL TSH 3rd Generation (0.47-4.68) mIU/L Ur Collection Type Urine Color (YELLOW) Urine Appearance (CLEAR) Urine pH (5-6) Ur Specific [place] (1.005-1.025) Urine Protein (Negative) Urine Ketones (NEGATIVE) Urine Blood (0-5) Carter/ul Urine Nitrite (NEGATIVE) Urine Bilirubin (NEGATIVE) Urine Urobilinogen (0-1) mg/dL Ur Leukocyte Esterase (NEGATIVE) Urine Microscopic RBC (0-2) /HPF Urine Microscopic WBC (0-5) /HPF Ur Epithelial Cells (FEW) /HPF Urine Bacteria (NEGATIVE) /HPF Urine Yeast (NEGATIVE) /HPF Urine Culture Reflexed (NO) Urine Glucose (NEGATIVE) mg/dL Stool Occult Blood POSITIVE (Negative) Specimen Received 04/20/18 04/20/18 04/20/18 Range/Units 16:16 16:58 17:00 WBC (4.0-10.5) K/mm3 RBC (4.1-5.4) M/mm3 Hgb (12.0-16.0) gm/dl Hct (35-47) % MCV (78-100) fl MCH (26-32) pg MCHC (32-36) g/dl RDW (11.5-14.0) % Plt Count (150-450) K/mm3 MPV (6-9.5) fl Absolute Granulocytes (1.4-6.9) Segmented Neutrophils (36.0-66.0) % Lymphocytes (Manual) (24-44) % Atypical Lymphocytes % Platelet Estimate (NORMAL) RBC Morphology Poikilocytosis Anisocytosis Sodium (137-145) mmol/L Potassium (3.5-5.1) mmol/L Chloride (98-107) mmol/L Carbon Dioxide (22-30) mmol/L Anion Gap (5-15) MEQ/L BUN (7-17) mg/dL Creatinine (0.52-1.04) mg/dL Estimated GFR ML/MIN Glucose (74-106) mg/dL Lactic Acid 1.8 (0.4-2.0) Calcium (8.4-10.2) mg/dL Phosphorus (2.5-4.5) mg/dL Magnesium (1.6-2.3) mg/dL Troponin I 0.036 H* (0.000-0.034) ng/mL TSH 3rd Generation (0.47-4.68) mIU/L Ur Collection Type CATH Urine Color YELLOW (YELLOW) Urine Appearance CLOUDY (CLEAR) Urine pH 5.0 (5-6) Ur Specific [place] 1.010 (1.005-1.025) Urine Protein 100 (Negative) Urine Ketones NEGATIVE (NEGATIVE) Urine Blood 250 (0-5) Carter/ul Urine Nitrite NEGATIVE (NEGATIVE) Urine Bilirubin NEGATIVE (NEGATIVE) Urine Urobilinogen NORMAL (0-1) mg/dL Ur Leukocyte Esterase 2+ (NEGATIVE) Urine Microscopic RBC 25-50 (0-2) /HPF Urine Microscopic WBC 50-100 (0-5) /HPF Ur Epithelial Cells RARE (FEW) /HPF Urine Bacteria FEW (NEGATIVE) /HPF Urine Yeast FEW (NEGATIVE) /HPF Urine Culture Reflexed YES (NO) Urine Glucose 100 (NEGATIVE) mg/dL Stool Occult Blood (Negative) Specimen Received 04/20/18 [id number] 04/21/18 04/21/18 04/21/18 Range/Units 05:18 05:18 05:18 WBC 12.4 H (4.0-10.5) K/mm3 RBC 3.64 L (4.1-5.4) M/mm3 Hgb 10.5 L (12.0-16.0) gm/dl Hct 33.9 L (35-47) % MCV 93.1 (78-100) fl MCH 28.8 (26-32) pg MCHC 31.0 L (32-36) g/dl RDW 16.4 H (11.5-14.0) % Plt Count 199 (150-450) K/mm3 MPV 11.3 H (6-9.5) fl Absolute Granulocytes 9.31 H (1.4-6.9) Segmented Neutrophils 86 H (36.0-66.0) % Lymphocytes (Manual) 13 L (24-44) % Atypical Lymphocytes 1 % Platelet Estimate NORMAL (NORMAL) RBC Morphology ABNORMAL Poikilocytosis RARE Anisocytosis 1+ Sodium 150 H (137-145) mmol/L Potassium 3.5 (3.5-5.1) mmol/L Chloride 118 H (98-107) mmol/L Carbon Dioxide 26 (22-30) mmol/L Anion Gap 9.6 (5-15) MEQ/L BUN 92 H (7-17) mg/dL Creatinine 1.99 H (0.52-1.04) mg/dL Estimated GFR 25.4 ML/MIN Glucose 149 H (74-106) mg/dL Lactic Acid (0.4-2.0) Calcium 10.6 H (8.4-10.2) mg/dL Phosphorus 1.8 L (2.5-4.5) mg/dL Magnesium 1.7 (1.6-2.3) mg/dL Troponin I 0.040 H* (0.000-0.034) ng/mL TSH 3rd Generation 1.510 (0.47-4.68) mIU/L Ur Collection Type Urine Color (YELLOW) Urine Appearance (CLEAR) Urine pH (5-6) Ur Specific [place] (1.005-1.025) Urine Protein (Negative) Urine Ketones (NEGATIVE) Urine Blood (0-5) Carter/ul Urine Nitrite (NEGATIVE) Urine Bilirubin (NEGATIVE) Urine Urobilinogen (0-1) mg/dL Ur Leukocyte Esterase (NEGATIVE) Urine Microscopic RBC (0-2) /HPF Urine Microscopic WBC (0-5) /HPF Ur Epithelial Cells (FEW) /HPF Urine Bacteria (NEGATIVE) /HPF Urine Yeast (NEGATIVE) /HPF Urine Culture Reflexed (NO) Urine Glucose (NEGATIVE) mg/dL Stool Occult Blood (Negative) Specimen Received Radiology Exams: Radiology Procedures Category Date Time Status ABDOMEN AND PELVIS W/0 CONTRAS [CT] Stat Exams 04/20/18 14:06 Completed CHEST 1 VIEW (PORTABLE) Stat Exams 04/20/18 16:39 Completed HEAD WITHOUT CONTRAST [CT] Stat Exams 04/20/18 13:50 Completed Assessment/Plan (1) Acute renal failure Current Visit: Yes Status: Acute Assessment & Plan: minimal improvement overnight she has had milky yellow urine output about 500 mL it appears over night will continue with fluid replacement correct electrolytes try to avoid excess chloride may require bicarb instead continue rocephin for the uti. currently continue 0.45 NaCl at 200 mL/h will give a dose of K-phos with the low K and Phosphate sugars improving on lantus + SSI will need to further discuss again end of life goals with her significant decline over the past 1 year with her dementia and failure to thrive (2) Uremic encephalopathy Current Visit: Yes Status: Acute Code(s): G93.41 - METABOLIC ENCEPHALOPATHY ; N19 - UNSPECIFIED KIDNEY FAILURE (3) GI bleed Current Visit: Yes Status: Acute Code(s): K92.2 - GASTROINTESTINAL HEMORRHAGE, UNSPECIFIED (4) UTI (urinary tract infection) Current Visit: Yes Status: Acute Onset Date: ~03/28/18 Qualifiers: Urinary tract infection type: site unspecified Hematuria presence: without hematuria Qualified Code(s): N39.0 - Urinary tract infection, site not specified Code(s): N39.0 - URINARY TRACT INFECTION, SITE NOT SPECIFIED (5) Hypercalcemia Current Visit: Yes Status: Acute Onset Date: ~03/28/18 Code(s): E83.52 - HYPERCALCEMIA (6) Essential hypertension Current Visit: Yes Status: Chronic Onset Date: ~03/28/18 Code(s): I10 - ESSENTIAL (PRIMARY) HYPERTENSION (7) Hyperparathyroidism Current Visit: Yes Status: Chronic Onset Date: ~03/28/18 Code(s): E21.3 - HYPERPARATHYROIDISM, UNSPECIFIED (8) Type 2 diabetes mellitus Current Visit: Yes Status: Chronic (9) Dementia Current Visit: Yes Status: Acute Code(s): F03.90 - UNSPECIFIED DEMENTIA WITHOUT BEHAVIORAL DISTURBANCE
[2018-04-21] MEDS ORDERED: POTASSIUM PHOSPHATE IV SCH (08:30)
[2018-04-21] MEDS ORDERED: SODIUM CHLORIDE 0.9% IV SCH (08:30)
[2018-04-21] MEDS ORDERED: POTASSIUM PHOSPHATE IV ONE (10:00)
[2018-04-21] MEDS: Miralax Powder 17GM PACKET PO SCH (10:12)
[2018-04-21] MEDS: MORPHINE SULFATE 2 MG INJ IV PRN ×3 (14:14→20:12)
[2018-04-21] MEDS: PROTONIX 40 MG IV IV SCH (20:11)
[2018-04-21] MEDS: ROCEPHIN 1 Gm-D5w 50 ml Bag** 1 G/50 ML IVPB IV SCH (21:18)
[2018-04-21] MEDS: Lantus Insulin SQ SCH (21:25)
[2018-04-22 05:48] LABS: ALBUMIN 1.9 g/dL (3.5-5.0); ANION GAP 9.4 MEQ/L (5-15); BILIRUBIN,TOTAL 0.3 mg/dL (0.2-1.3); Calcium 8.5 mg/dL (8.4-10.2); Creatinine 1 1.74 mg/dL (0.52-1.04); PHOSPHOROUS 2.5 mg/dL (2.5-4.5); Potassium 3.9 mmol/L (3.5-5.1); Total Protein 4.4 g/dL (6.3-8.2)
[2018-04-22 05:49] LABS: Hematocrit 30.9 % (35-47); Hemoglobin 9.7 gm/dl (12.0-16.0); Mean Cell Volume 92.2 fl (78-100); Mean Corpuscular Hgb Concent. 31.4 g/dl (32-36); Mean Platelet Volume 11.7 fl (6-9.5); Platelet Count 157 K/mm3 (150-450); Red Blood Count 3.35 M/mm3 (4.1-5.4); Red Cell Distribution Width 16.1 % (11.5-14.0); White Blood Count 12.2 K/mm3 (4.0-10.5)
[2018-04-22 05:57] LABS: Mean Corpuscular Hemoglobin 28.9 pg (26-32)
--- NOTE | 2018-04-22 08:15 | PCM.NOTE ---
Date and Time: 04/22/18811 Subjective Assessment: more alert this am no moaning she does answer a few questions with "ok" she is being fed and tolerating this and drinking from a straw with the nurses help. Objective Exam General Appearance: no apparent distress, thin Neurologic Exam: alert, No oriented x 3 Skin Exam: warm, dry Ears, Nose, Throat Exam: moist mucous membranes Neck Exam: non-tender, supple Respiratory Exam: other (left basilar minimal rales) Cardiovascular Exam: regular rate/rhythm, normal heart sounds, normal peripheral pulses Gastrointestinal/Abdomen Exam: soft, normal bowel sounds, No tenderness, No distention Extremity Exam: No calf tenderness, No pedal edema OBJECTIVE DATA Vital Signs: Vital Signs - 24 hr Temp Pulse Resp BP BP Pulse Ox 04/22/18 08:00 98.6 F 83 18 112/42 04/22/18 04:00 98.4 F 71 16 117/60 94 L 04/22/18 00:00 98.6 F 73 21 122/58 95 04/21/18 19:43 97.5 F 63 16 114/56 97 04/21/18 19:36 97 04/21/18 16:00 97.6 F 63 14 131/60 98 04/21/18 12:00 97.7 F 77 18 137/67 91 L Pain Assessment - Last Documented Pain Intensity 2 Pain Scale Used [facility] Intake and Output: Intake & Output 04/19/18 04/20/18 04/21/18 04/22/18 11:59 11:59 11:59 11:59 Intake Total 2721 1850 Output Total 575 400 Balance 2146 1450 Weight 46 kg 54 kg Lab Results: Accuchecks Date 04/21/18 Date 04/21/18 Time 22:00 Time 21:30 Accucheck Value: 88 Accucheck Value: 66 Accucheck Value: 83 Accucheck Value: 97 Lab Results-Last 24 Hours 04/22/18 04/22/18 Range/Units 05:16 05:16 WBC 12.2 H (4.0-10.5) K/mm3 RBC 3.35 L (4.1-5.4) M/mm3 Hgb 9.7 L (12.0-16.0) gm/dl Hct 30.9 L (35-47) % MCV 92.2 (78-100) fl MCH 28.9 (26-32) pg MCHC 31.4 L (32-36) g/dl RDW 16.1 H (11.5-14.0) % Plt Count 157 (150-450) K/mm3 MPV 11.7 H (6-9.5) fl Sodium 137 (137-145) mmol/L Potassium 3.9 (3.5-5.1) mmol/L Chloride 111 H (98-107) mmol/L Carbon Dioxide 21 L (22-30) mmol/L Anion Gap 9.4 (5-15) MEQ/L BUN 65 H (7-17) mg/dL Creatinine 1.74 H (0.52-1.04) mg/dL Estimated GFR 29.6 ML/MIN Glucose 106 (74-106) mg/dL Calcium 8.5 (8.4-10.2) mg/dL Phosphorus 2.5 (2.5-4.5) mg/dL Magnesium 1.3 L (1.6-2.3) mg/dL Total Bilirubin 0.30 (0.2-1.3) mg/dL AST 14 (14-36) U/L ALT 8 (0-35) U/L Alkaline Phosphatase 59 (38-126) U/L Serum Total Protein 4.4 L (6.3-8.2) g/dL Albumin 1.9 L (3.5-5.0) g/dL Radiology Exams: Radiology Procedures Category Date Time Status ABDOMEN AND PELVIS W/0 CONTRAS [CT] Stat Exams 04/20/18 14:06 Completed CHEST 1 VIEW (PORTABLE) Stat Exams 04/20/18 16:39 Completed HEAD WITHOUT CONTRAST [CT] Stat Exams 04/20/18 13:50 Completed Assessment/Plan (1) Acute renal failure Current Visit: Yes Status: Acute Onset Date: ~04/20/18 Assessment & Plan: slow improvement mental status improving continue to encourage po intake continue iv fluids decrease form 200 mL/hr to 125 monitor I/O replace magnesium continue ceftriaxone for uti stop if culture remains negative. (2) Uremic encephalopathy Current Visit: Yes Status: Acute Onset Date: ~04/20/18 Code(s): G93.41 - METABOLIC ENCEPHALOPATHY; N19 - UNSPECIFIED KIDNEY FAILURE (3) GI bleed Current Visit: Yes Status: Acute Onset Date: ~04/20/18 Assessment & Plan: contniue protonix Code(s): K92.2 - GASTROINTESTINAL HEMORRHAGE, UNSPECIFIED (4) UTI (urinary tract infection) Current Visit: Yes Status: Acute Onset Date: ~04/20/18 Qualifiers: Urinary tract infection type: site unspecified Hematuria presence: without hematuria Qualified Code(s): N39.0 - Urinary tract infection, site not specified Code(s): N39.0 - URINARY TRACT INFECTION, SITE NOT SPECIFIED (5) Hypercalcemia Current Visit: Yes Status: Resolved Onset Date: ~04/20/18 Code(s): E83.52 - HYPERCALCEMIA (6) Essential hypertension Current Visit: Yes Status: Chronic Onset Date: ~03/28/18 Code(s): I10 - ESSENTIAL (PRIMARY) HYPERTENSION (7) Hyperparathyroidism Current Visit: Yes Status: Chronic Onset Date: ~03/28/18 Code(s): E21.3 - HYPERPARATHYROIDISM, UNSPECIFIED (8) Type 2 diabetes mellitus Current Visit: Yes Status: Chronic Onset Date: ~04/20/18 Assessment & Plan: improved control (9) Dementia Current Visit: Yes Status: Acute Onset Date: ~04/20/18 Code(s): F03.90 - UNSPECIFIED DEMENTIA WITHOUT BEHAVIORAL DISTURBANCE
[2018-04-22] MEDS: Miralax Powder 17GM PACKET PO SCH (08:47)
[2018-04-22] MEDS: Magnesium 1 Gm / 100 Ml D5W*** 100 ML IV SCH ×2 (08:47→09:22)
[2018-04-22] MEDS: NovoLOG Insulin SQ PRN (12:14)
[2018-04-22] MEDS: MORPHINE SULFATE 2 MG INJ IV PRN (19:17)
[2018-04-22] MEDS: PROTONIX 40 MG IV IV SCH (19:56)
[2018-04-22] MEDS: Lantus Insulin SQ SCH (21:05)
[2018-04-22] MEDS: ROCEPHIN 1 Gm-D5w 50 ml Bag** 1 G/50 ML IVPB IV SCH (21:07)
[2018-04-23 05:54] LABS: Hematocrit 28.9 % (35-47); Hemoglobin 9.4 gm/dl (12.0-16.0); Mean Cell Volume 89.5 fl (78-100); Mean Corpuscular Hemoglobin 29.1 pg (26-32); Mean Corpuscular Hgb Concent. 32.5 g/dl (32-36); Mean Platelet Volume 11.9 fl (6-9.5); Platelet Count 139 K/mm3 (150-450); Red Blood Count 3.23 M/mm3 (4.1-5.4); Red Cell Distribution Width 15.7 % (11.5-14.0)
[2018-04-23 06:20] LABS: ANION GAP 9.9 MEQ/L (5-15); Calcium 8.5 mg/dL (8.4-10.2); Creatinine 1 1.74 mg/dL (0.52-1.04); Potassium 3.9 mmol/L (3.5-5.1)
[2018-04-23] MEDS: Miralax Powder 17GM PACKET PO SCH (08:48)
[2018-04-23] MEDS: MORPHINE SULFATE 2 MG INJ IV PRN ×3 (09:34→23:52)
[2018-04-23] MEDS ORDERED: DIFLUCAN PO ONE (10:15)
[2018-04-23] MEDS: NovoLOG Insulin SQ PRN ×2 (16:09→21:23)
[2018-04-23] MEDS: Lantus Insulin SQ SCH (21:22)
[2018-04-23] MEDS: PROTONIX 40 MG IV IV SCH (21:22)
--- NOTE | 2018-04-23 22:07 | PCM.NOTE ---
Date and Time: 04/23/18900 Subjective Assessment: she is seen today in her room she is talking better now but still will intermittently answer questions by responding with letters. she has pain with sitting up from sacral pressure sores. She ate and drank some yesterday and will drink this morning her orange juice but spit out the food. She does not answer why but when specifically asked she agrees that it doesn't taste good. She is talking better this am and answering more questions. She does not recall the last time she was home she is not able to tell me where she lives. She only answers that question with "over there". When asked what year it is she says "10 ". When asked if she would want to live in a mcc she says "no". When asked if she would want us to continue to give her nutrition if her memory didn' t work and feed her with a tube or iv's she also said "no". She is unable to describe what hurts her right now but it appears to be when she sits on her sacrum Objective Exam General Appearance: thin Neurologic Exam: No oriented x 3 (see hpi) Skin Exam: warm, dry Ears, Nose, Throat Exam: moist mucous membranes Neck Exam: non-tender, supple Cardiovascular Exam: regular rate/rhythm, normal peripheral pulses, No edema Gastrointestinal/Abdomen Exam: soft, normal bowel sounds, No tenderness, No distention Extremity Exam: normal inspection, No calf tenderness, No pedal edema OBJECTIVE DATA Vital Signs: Vital Signs - 24 hr Temp Pulse Resp BP Pulse Ox 04/23/18 20:02 97 04/23/18 19:40 98.4 F 88 18 111/62 94 L 04/23/18 16:03 98.3 F 84 18 132/77 95 04/23/18 12:08 98 F 70 18 116/58 95 04/23/18 07:24 96 04/23/18 07:13 98 F 78 18 120/64 97 04/23/18 04:20 98.5 F 83 15 120/63 96 04/22/18 23:31 98.7 F 89 20 123/71 95 Pain Assessment - Last Documented Pain Intensity 0 Pain Scale Used 0-10 Pain Scale,FLACC Intake and Output: Intake & Output 08/07/18 08/08/18 08/09/18 08/10/18 11:59 11:59 11:59 11:59 Intake Total 2728 2330 3714 1546 Output Total 573 1050 2800 Balance 2146 0959 518 3882 Weight 46 kg 54 kg 54.4 kg Lab Results: Accuchecks Date 04/23/18 Date 04/23/18 Time 16:30 Time 11:30 Accucheck Value: 246 Accucheck Value: 236 Lab Results-Last 24 Hours 04/23/18 04/23/18 Range/Units 05:25 05:25 WBC 9.0 (4.0-10.5) K/mm3 RBC 3.23 L (4.1-5.4) M/mm3 Hgb 9.4 L (12.0-16.0) gm/dl Hct 28.9 L (35-47) % MCV 89.5 (78-100) fl MCH 29.1 (26-32) pg MCHC 32.5 (32-36) g/dl RDW 15.7 H (11.5-14.0) % Plt Count 139 L (150-450) K/mm3 MPV 11.9 H (6-9.5) fl Sodium 136 L (137-145) mmol/L Potassium 3.9 (3.5-5.1) mmol/L Chloride 111 H (98-107) mmol/L Carbon Dioxide 20 L (22-30) mmol/L Anion Gap 9.9 (5-15) MEQ/L BUN 47 H (7-17) mg/dL Creatinine 1.74 H (0.52-1.04) mg/dL Estimated GFR 29.6 ML/MIN Glucose 148 H (74-106) mg/dL Calcium 8.5 (8.4-10.2) mg/dL Magnesium 1.7 (1.6-2.3) mg/dL Assessment/Plan (1) Acute renal failure Current Visit: Yes Status: Acute Onset Date: ~04/20/18 Assessment & Plan: improving urine output increased no further gi bleeding hgb slow trend down she had electrolytes corrected sugar betterr urine culture grew only 15k yeast colony will stop antibiotic and give 1 dose of diflucan urine is now clear yellow will work on 1 more day of hydration and discussing her wishes with her poa and son. it appears with her dementia that artificial nutrition would not be recommended however currently he has expressed that her wishes were for full intervention. she today seems to go against this however she does not currently have the capacity to make these kind of decisions. (2) Uremic encephalopathy Current Visit: Yes Status: Acute Onset Date: ~04/20/18 Code(s): G93.41 - METABOLIC ENCEPHALOPATHY; N19 - UNSPECIFIED KIDNEY FAILURE (3) GI bleed Current Visit: Yes Status: Acute Onset Date: ~04/20/18 Code(s): K92.2 - GASTROINTESTINAL HEMORRHAGE, UNSPECIFIED (4) Hypercalcemia Current Visit: Yes Status: Resolved Onset Date: ~04/20/18 Code(s): E83.52 - HYPERCALCEMIA (5) Essential hypertension Current Visit: Yes Status: Chronic Onset Date: ~03/28/18 Code(s): I10 - ESSENTIAL (PRIMARY) HYPERTENSION (6) Hyperparathyroidism Current Visit: Yes Status: Chronic Onset Date: ~03/28/18 Code(s): E21.3 - HYPERPARATHYROIDISM, UNSPECIFIED (7) Type 2 diabetes mellitus Current Visit: Yes Status: Chronic Onset Date: ~04/20/18 (8) Dementia Current Visit: Yes Status: Acute Onset Date: ~04/20/18 Code(s): F03.90 - UNSPECIFIED DEMENTIA WITHOUT BEHAVIORAL DISTURBANCE (9) UTI (urinary tract infection) Current Visit: Yes Status: Ruled-out Onset Date: ~04/20/18 Qualifiers: Urinary tract infection type: site unspecified Hematuria presence: without hematuria Qualified Code(s): N39.0 - Urinary tract infection, site not specified Code(s): N39.0 - URINARY TRACT INFECTION, SITE NOT SPECIFIED
[2018-04-24 05:09] LABS: Hematocrit 27.1 % (35-47); Hemoglobin 8.8 gm/dl (12.0-16.0); Mean Cell Volume 89.7 fl (78-100); Mean Corpuscular Hemoglobin 29.1 pg (26-32); Mean Corpuscular Hgb Concent. 32.5 g/dl (32-36); Mean Platelet Volume 11.2 fl (6-9.5); Platelet Count 134 K/mm3 (150-450); Red Blood Count 3.02 M/mm3 (4.1-5.4); Red Cell Distribution Width 15.9 % (11.5-14.0)
[2018-04-24 05:30] LABS: ANION GAP 7.7 MEQ/L (5-15); Calcium 8.2 mg/dL (8.4-10.2); Creatinine 1 1.58 mg/dL (0.52-1.04); Potassium 3.6 mmol/L (3.5-5.1)
--- NOTE | 2018-04-24 08:28 | PCM.DCORD ---
- Discharge Discharge Date: 04/24/18 Disposition: DC TO [facility] Condition: Poor Prescriptions: New Pantoprazole Sodium [Protonix] 40 mg PO DAILY #30 tablet.dr Continue Sennosides/Docusate Sodium [Stool Softener-Stim Lax Tablet] 1 each PO BID PRN PRN Reason: Constipation Polyethylene Glycol 3350 [Glycolax] 17 gm PO DAILY Hydrocodone Bit/Acetaminophen [[place] 5-325 Tablet] 1 each PO Q6HPRN PRN PRN Reason: Pain Glucagon,Human Recombinant [Glucagon Emergency Kit] 1 mg IM QID PRN PRN Reason: Hypoglycemia Polyvinyl Alcohol [Artificial Tears] 15 ml OP Q4H PRN PRN Reason: Anxiety Acetaminophen 325 mg [Tylenol 325 mg] 650 mg PO Q4H PRN PRN Reason: Pain Magnesium Hydroxide [Milk of Magnesia] 30 ml PO DAILY PRN PRN Reason: Constipation Bisacodyl 10 mg [Dulcolax 10 MG SUPP] 10 mg [place] QDP PRN supp.rect PRN Reason: Constipation Insulin Aspart [NovoLOG Insulin] 1 unit SQ ACHS PRN PRN Reason: Hyperglycemia Changed Insulin Glargine [Lantus Insulin] 10 unit SQ HS #0 Discontinued Calcium Carbonate/Vitamin D3 [Oystercal-D 500 mg-400 Unit Tb] 2 tab PO DAILY Triamterene/Hydrochlorothiazid [Maxzide 37.5 mg-25 mg Tablet] 1 each PO DAILY glipiZIDE [Glipizide] 5 mg PO BID Follow up with: ZOEY LUNA [Primary Care Provider] - 1 Week
[2018-04-24 08:34] VITALS: BP 117/59; PULSE 81; O2SAT 96
[2018-04-24] MEDS: Miralax Powder 17GM PACKET PO SCH (08:56)
--- NOTE | 2018-04-26 17:33 | PCM.DS ---
Discharge Summary Date of Admission: 04/20/18 20:48 Date of Discharge: 04/24/18 Admitting Physician: ZOEY LUNA Primary Care Provider: ZOEY LUNA Allergies Allergies No Known Drug Allergies Allergy (Verified 03/28/18 09:17) Hospital Summary - Hospital Course Hospital Course: She suffers from progressively worsening dementia and CKD stage 4 with baseline creatine about 1.9. She stopped eeating and drinking at [facility] and became very dehydrated it appears she also likely had a small GI bleed upper likely exacerbating her uremia resulting in sever uremic encephalopathy exacerbating her chronic dementia. She had severe hypernatremia and hypercalcemia with secondary hyperparathyroidism. She was treated initially with ceftriaxone over concern of possible UTI but culture was negative and this was stopped. She was given iv fluid boluses with LR followed by infusion at 2 to 3 x maint for several days with 0.45 NaCl she slowly beccame more alert she did eat well on and was communicating much better but still very confused. She was much more alert her urine output was signficantly improving and creatinine continued to trend down below her baseline and she did not show any evidence of third spacing. She was communicating more clear but remained disoriented. I discussed what her wishes were with her. She did not know where she was living. She said she would not want to be kept alive if it meant having to live in a mcc forever she was however at this time did not have capicitance to make this decision. Her son and POA was contacted prior to discharge and long discussion and he agreed that with her current state and decline we should pursue more comfort measures. She was doing better tolerating po. We will d/c back to [facility] and hospice will be consulted. Her son has appropriately elected not to pursue oil heaterman artificial nutrition or hydration and focus on comfort with her limited life expectancy. she had no further gi bleeding during admission noted and was continued on the protonix - Vitals & Intake/Output Vital Signs: Vital Signs Temperature 98.9 F 04/24/18 08:00 Pulse Rate 81 04/24/18 08:00 Respiratory Rate 18 04/24/18 08:00 Blood Pressure 117/59 04/24/18 08:00 O2 Sat by Pulse Oximetry 96 04/24/18 08:00 Intake & Output: Intake & Output 08/10/04/25/18 04/26/18 04/27/18 11:59 11:59 11:59 11:59 Intake Total 4058 Output Total 1425 Balance 2633 Weight 53.9 kg - Lab Result Diagrams: 04/24/18 04:58 04/24/18 04:58 Micro Results-Entire Visit: Microbiology 04/20/18 14:15 Blood Culture Gram Stain - Final Blood Not Reportable Blood Culture - Final NO GROWTH 04/20/18 14:15 Blood Culture Gram Stain - Final Blood Not Reportable Blood Culture - Final NO GROWTH 04/20/18 16:58 Urine Culture - Final Urine, Catheterized YEAST PRESENT - Procedures and Test Procedures and Tests throughout Hospitalization: Therapy Orders & Screens 04/20/18 19:03 PT Screen per Nursing Assess Comment: Protocol Order Physician Instructions: Greater than 3 points order PT Admission Screenin Reason For Exam: Triggered on Admission Diagnosis: AMS Open Wound/Cellutlitis/Pressure Ulcers: Yes Acute Fx/ORIF/Change in wt bearing status: No Severe MUSCULOSKELETAL pain: No Acute CVA w/Hemiparesis/Hemiplegia: No Decreased Functional Mobility/Strength: Yes Sprain/Strain: No Acute Post-op Mobility Dysfunction: No Total Points: 6 ST Screen per Nursing Assess Comment: Protocol Order Physician Instructions: Greater than [address] Admission Screening Reason For Exam: Triggered on Admission Diagnosis: AMS CVA/Dyshpagia/Aphasia: No Cognitive Deficits: Yes Dehydration/Nutrition Deficit: Yes Reflux: No Oral-Motor Difficulties: No Pneumonia: No Group Home Resident: Yes Total Points: 13 Discharge Exam General Appearance: no apparent distress, thin Neurologic Exam: No oriented x 3 Skin Exam: warm, dry, pale Eye Exam: pale conjunctivae, No scleral icterus Ears, Nose, Throat Exam: moist mucous membranes Neck Exam: non-tender, supple Respiratory Exam: normal breath sounds, lungs clear Cardiovascular Exam: regular rate/rhythm, normal heart sounds Gastrointestinal/Abdomen Exam: soft, normal bowel sounds, No tenderness, No distention Extremity Exam: normal inspection, No pedal edema Comments: 04/26/18 17:34 [place] with clear yellow urine she has pain with her buttocks with the urinary incontinence and pressure ulcerations currently with sacral pressure ulcers Final Diagnosis/Problem List - Final Discharge Diagnosis/Problem (1) Acute renal failure Status: Acute Onset Date: ~04/20/18 (2) Uremic encephalopathy Status: Acute Onset Date: ~04/20/18 (3) GI bleed Status: Acute Onset Date: ~04/20/18 (4) Hypercalcemia Status: Resolved Onset Date: ~04/20/18 (5) Essential hypertension Status: Chronic Onset Date: ~03/28/18 (6) Hyperparathyroidism Status: Chronic Onset Date: ~03/28/18 (7) Type 2 diabetes mellitus Status: Chronic Onset Date: ~04/20/18 (8) Dementia Status: Acute Onset Date: ~04/20/18 (9) UTI (urinary tract infection) Status: Ruled-out Onset Date: ~04/20/18 - Discharge Discharge Date: 04/24/18 Disposition: NM TO [facility] Condition: Poor Prescriptions: New Pantoprazole Sodium [Protonix] 40 mg PO DAILY #30 tablet. Continue Sennosides/Docusate Sodium [Stool Softener-Stim Lax Tablet] 1 each PO BID PRN PRN Reason: Constipation Polyethylene Glycol 3350 [Glycolax] 17 gm PO DAILY Hydrocodone Bit/Acetaminophen [[place] 5-325 Tablet] 1 each PO Q6HPRN PRN PRN Reason: Pain Glucagon,Human Recombinant [Glucagon Emergency Kit] 1 mg IM QID PRN PRN Reason: Hypoglycemia Polyvinyl Alcohol [Artificial Tears] 15 ml OP Q4H PRN PRN Reason: Anxiety Acetaminophen 325 mg [Tylenol 325 mg] 650 mg PO Q4H PRN PRN Reason: Pain Magnesium Hydroxide [Milk of Magnesia] 30 ml PO DAILY PRN PRN Reason: Constipation Bisacodyl 10 mg [Dulcolax 10 MG SUPP] 10 mg [place] QDP PRN supp.rect PRN Reason: Constipation Insulin Aspart [NovoLOG Insulin] 1 unit SQ ACHS PRN PRN Reason: Hyperglycemia Changed Insulin Glargine [Lantus Insulin] 10 unit SQ HS #0 Discontinued Calcium Carbonate/Vitamin D3 [Oystercal-D 500 mg-400 Unit Tb] 2 tab PO DAILY Triamterene/Hydrochlorothiazid [Maxzide 37.5 mg-25 mg Tablet] 1 each PO DAILY glipiZIDE [Glipizide] 5 mg PO BID Additional Instructions: CINDY BETHEA ORDERS: SOFT DIET F/C WITH ROUTINE CARE ACCU CHECKS BEFORE SEE ATTACHED MED LIST FOR CURRENT MED ORDERS RESUME ALL PREVIOUS LONGTERM ORDERS Follow up with: ZOEY LUNA [Primary Care Provider] - 1 Week Forms: Transfer Record Group Home
== END 2018-04-24 10:10 | DRG 682 ==
LOC: ED 13:27 → MED SURG 17:41 → OBSVTOIN 20:48
PROVIDERS: ADMIT Family Medicine; ATTEND Family Medicine
DX: N17.9 Acute kidney failure, unspecified (principal); G93.41 Metabolic encephalopathy; K92.2 Gastrointestinal hemorrhage, unspecified; N39.0 Urinary tract infection, site not specified; E83.52 Hypercalcemia; E21.3 Hyperparathyroidism, unspecified; R41.82 Altered mental status, unspecified; Z79.4 Long term (current) use of insulin; E86.0 Dehydration; F03.90 Unspecified dementia, unspecified severity, without behavioral disturbance, psychotic disturbance, mood disturbance, and anxiety; E78.00 Pure hypercholesterolemia, unspecified; I12.9 Hypertensive chronic kidney disease with stage 1 through stage 4 chronic kidney disease, or unspecified chronic kidney disease; N18.4 Chronic kidney disease, stage 4 (severe); I10 Essential (primary) hypertension; E11.9 Type 2 diabetes mellitus without complications; N28.9 Disorder of kidney and ureter, unspecified; G30.9 Alzheimer's disease, unspecified; F02.80 Dementia in other diseases classified elsewhere, unspecified severity, without behavioral disturbance, psychotic disturbance, mood disturbance, and anxiety; I48.91 Unspecified atrial fibrillation; Z79.899 Other long term (current) drug therapy
CPT/HCPCS: 36000; 36415; 51702; 70450; 71045; 74176; 80048; 80053; 81000; 82272; 83605; 83690; 83735; 84100; 84443; 84484; 85025; 85027; 87040; 87086; 93005; 93268; 94760; 94762; 96360; 99285; P9603; J0696; J2270; J3475; A9270-GY